=== PATIENT | male | born 1990 | race Caucasian/White ===

== ENCOUNTER → 2020-04-03 | Outpatient (REF) | payer SELFPAY | LOC: M LABSMTC 08:00 → EDSTATUS 12:50 | PROVIDERS: ATTEND Pediatrics | DX: Z20.828 Contact with and (suspected) exposure to other viral communicable diseases (principal) ==

== ENCOUNTER → 2020-04-24 | Outpatient (CLI) | payer SELFPAY | LOC: M LABSMTC 14:42 | PROVIDERS: ATTEND Pediatrics | DX: Z20.828 Contact with and (suspected) exposure to other viral communicable diseases (principal) ==

== ENCOUNTER 2020-04-30 14:29 | Emergency (ER) | payer SELFPAY ==
[~2020-04-30] VITALS: Ht 180.3 cm; Wt 126.4 kg
[2020-04-30] MEDS ORDERED: NS 1,000 ML IV ONE (15:00)
[2020-04-30 15:42] LABS: BASO # 0.1 10^3/uL (0.0-0.2); BASO % 0.8 % (0.0-1.0); EOS # 0.1 10^3/uL (0.0-0.5); EOS % 1.2 % (0.0-3.0); HEMATOCRIT 46.7 % (42.0-52.0); HEMOGLOBIN 15.7 g/dl (13.5-17.5); LYMPH # 1.8 10^3/uL (1.5-5.0); LYMPH % 27.3 % (24.0-44.0); MEAN CORPUSCULAR HEMOGLOBIN 29.3 pg (27.0-33.0); MEAN CORPUSCULAR HGB CONC 33.6 g/dl (32.0-36.5); MEAN CORPUSCULAR VOLUME 87.3 fl (80.0-96.0); MONO # 0.4 10^3/uL (0.0-0.8); MONO % 5.8 % (0.0-5.0); NEUTROPHILS # 4.3 10^3/uL (1.5-8.5); NEUTROPHILS % 64.4 % (36.0-66.0); PLATELET COUNT, AUTOMATED 301 10^3/uL (150-450); RED BLOOD COUNT 5.35 10^6/uL (4.30-6.10); WHITE BLOOD COUNT 6.6 10^3/uL (4.0-10.0)
[2020-04-30 16:25] LABS: ALBUMIN 4.3 GM/DL (3.2-5.2); ALT/SGPT 55 U/L (12-78); BILIRUBIN,DIRECT 0.1 MG/DL (0.0-0.2); BILIRUBIN,TOTAL 0.7 MG/DL (0.2-1.0); BLOOD UREA NITROGEN 15 MG/DL (7-18); CARBON DIOXIDE LEVEL 26 MEQ/L (21-32); CHLORIDE LEVEL 107 MEQ/L (98-107); CREATININE FOR GFR 0.83 MG/DL (0.70-1.30); GLOMERULAR FILTRATION RATE > 60.0 (>60); GLUCOSE, FASTING 83 MG/DL (70-100); LIPASE 79 U/L (73-393); POTASSIUM SERUM 4.2 MEQ/L (3.5-5.1); SODIUM LEVEL 138 MEQ/L (136-145); TOTAL PROTEIN 7.6 GM/DL (6.4-8.2)
[2020-04-30] MEDS ORDERED: ISOVUE-370 76% 100ML VIAL As Ordered ONE (16:27)
--- NOTE | 2020-04-30 17:01 | REP ---
INDICATION: abd pain with n/v/d. COMPARISON: None. TECHNIQUE: Abdomen and pelvis CT with IV contrast. FINDINGS: The visualized lung joshi are unremarkable. The hepatic parenchyma, gallbladder, pancreas and spleen are normal size and unremarkable. There is a small accessory spleen is an anatomic variant. The adrenals and kidneys are unremarkable. The abdominal aorta is unremarkable. There is no periaortic adenopathy or mass. There is no bowel distention or obstruction. There is wall edema in the terminal ileum is well as the descending colon and sigmoid colon.. This is nonspecific but could represent enteritis and colitis. There is no ascites. Pelvis: The appendix is unremarkable. There is no ascites or adenopathy. The bladder is unremarkable. IMPRESSION: Wall edema of the terminal ileum is well as the descending colon and sigmoid colon, nonspecific but could represent enteritis and colitis. <Electronically signed by Garth Caraballo > 04/30/20 [id number]
--- NOTE | 2020-04-30 17:23 | REP ---
INDICATION: SOB. COMPARISON: No comparison. TECHNIQUE: Two views.. FINDINGS: The lungs are well inflated and free of infiltrate. The pleural angles are sharp. The heart size is normal. Pulmonary vasculature is not increased. No significant bony abnormality is seen. IMPRESSION: Negative chest x-ray. <Electronically signed by Caden Shah > 04/30/20 1965
[2020-04-30 17:41] VITALS: BP 144/110
--- NOTE | 2020-04-30 19:18 | ED PDOC ---
Post-Departure Follow-Up pt needs fu for ct abd/p. find out pcp name and fax and have pt fu. if no pcp re [facility] there for fu Thomas Lerma MD Apr 30, 2020 19:18
== END 2020-04-30 17:46 | disposition home or self-care (01) ==
LOC: M ED 14:29
DX: R19.7 Diarrhea, unspecified (principal); Z91.02 Food additives allergy status; Z91.048 Other nonmedicinal substance allergy status
CPT/HCPCS: 71046; 74177; 80048; 80076; 81001; 83690; 85025; 96360; 99284; Q9967; U0002

== ENCOUNTER → 2020-05-01 | Outpatient (REF) | payer SELFPAY | LOC: M LAB REF 12:03 | PROVIDERS: ATTEND Nurse Practitioner Family | DX: R19.7 Diarrhea, unspecified (principal) ==

== ENCOUNTER → 2020-05-12 | Outpatient (CLI) | payer SELFPAY | LOC: M LABSMTC 14:47 | PROVIDERS: ATTEND Pediatrics | DX: Z20.828 Contact with and (suspected) exposure to other viral communicable diseases (principal) ==

== ENCOUNTER 2020-06-07 08:42 | Emergency (ER) | payer OTHER, SELFPAY ==
[~2020-06-07] VITALS: Ht 180.3 cm; Wt 125.9 kg
--- OUTSIDE RECORDS SUMMARY | 2020-06-07 08:50 | CCD ---
Author Author [facility] Organization [facility] Address Unknown Phone Unavailable Support Name Relationship Address Phone ELY WELLS Next Of Kin [address] [place] [address] SKH* Next Of Kin [address] [place] [address] [place] [address] NONE, PT PER Next Of Kin - -, - - - SOLEDAD DE LA TORRE Next Of Kin [address] [place] [address] CELL Re-disclosure Warning The records that you are about to access may contain information from federally-assisted alcohol or drug abuse programs. If such information is present, then the following federally mandated warning applies: This information has been disclosed to you from records protected by federal confidentiality rules (42 CFR part 2). The federal rules prohibit you from making any further disclosure of this information unless further disclosure is expressly permitted by the written consent of the person to whom it pertains or as otherwise permitted by 42 CFR part 2. A general authorization for the release of medical or other information is NOT sufficient for this purpose. The Federal rules restrict any use of the information to criminally investigate or prosecute any alcohol or drug abuse patient.The records that you are about to access may contain highly sensitive health information, the redisclosure of which is protected by Article 27-F of the [facility] Public Health law. If you continue you may have access to information: Regarding HIV / AIDS; Provided by facilities licensed or operated by the [facility] Office of Mental Health; or Provided by the [facility] Office for People With Developmental Disabilities. If such information is present, then the following [facility] mandated warning applies: This information has been disclosed to you from confidential records which are protected by state law. State law prohibits you from making any further disclosure of this information without the specific written consent of the person to whom it pertains, or as otherwise permitted by law. Any unauthorized further disclosure in violation of state law may result in a fine or group home sentence or both. A general authorization for the release of medical or other information is NOT sufficient authorization for further disc losure. Insurance Providers Payer name Policy type / Coverage type Policy ID Covered alliance party ID Covered alliance party's relationship to blackmon Policy [employer] Plan Information SELF PAY ONLY [id number] SELF PAY Results ID Date Data Source [id number] 06/04/2020 12:00:00 AM EST [facility] Name Value Range Interpretation Code Description Data Trupti rce(s) Supporting Document(s) SARS-CoV2 Rapid Antigen Negative [facility] This lab was ordered by [facility] and reported by [facility]. ID Date Data Source [id number] 06/01/2020 10:57:00 AM EST [facility] Name Value Range Interpretation Code Description Data Trupti rce(s) Supporting Document(s) SARS coronavirus 2 RNA Not Detected [facility] This lab was ordered by [facility] and reported by [facility]. ID Date Data Source [id number] 05/25/2020 11:30:00 AM EST [facility] Name Value Range Interpretation Code Description Data Trupti rce(s) Supporting Document(s) SARS coronavirus 2 RNA Not Detected [facility] [place] This lab was ordered by [facility] and reported by [facility]. ID Date Data Source [id number] 05/18/2020 02:36:00 PM EST [facility] Name Value Range Interpretation Code Description Data Trupti rce(s) Supporting Document(s) SARS coronavirus 2 RNA [facility] This lab was ordered by [facility] and reported by [facility]. ID Date Data Source [id number] 05/12/2020 01:45:00 PM EST [facility] Name Value Range Interpretation Code Description Data Trupti rce(s) Supporting Document(s) SARS coronavirus 2 RNA [facility] This lab was ordered by [facility] and reported by [facility]. ID Date Data Source [id number] 05/12/2020 12:00:00 AM EST [facility] Name Value Range Interpretation Code Description Data Trupti rce(s) Supporting Document(s) SARS-CoV2 Rapid Antigen [facility] This lab was ordered by [facility] and reported by [facility]. ID Date Data Source [id number] 04/30/2020 03:10:00 PM EST [facility] Name Value Range Interpretation Code Description Data Trupti rce(s) Supporting Document(s) SARS coronavirus 2 RNA [Presence] in Res piratory specimen by LISANDRA with probe detection [facility] This lab was ordered by [facility] a nd reported by [facility]. ID Date Data Source [id number] 04/24/2020 01:40:00 PM EST [facility] Name Value Range Interpretation Code Description Data Trupti rce(s) Supporting Document(s) SARS coronavirus 2 RNA [facility] This lab was ordered by [facility] and reported by [facility]. ID Date Data Source [id number] 04/20/2020 07:27:00 AM EST [facility] Name Value Range Interpretation Code Description Data Trupti rce(s) Supporting Document(s) SARS coronavirus 2 RNA [facility] This lab was ordered by [facility] and reported by [facility]. ID Date Data Source [id number] 04/15/2020 12:00:00 AM EST [facility] Name Value Range Interpretation Code Description Data Trupti rce(s) Supporting Document(s) SARS-CoV2 Rapid Antigen [facility] This lab was ordered by [facility] and reported by [facility]. ID Date Data Source [id number] 04/03/2020 09:35:00 AM EST [facility] Name Value Range Interpretation Code Description Data Trupti rce(s) Supporting Document(s) SARS coronavirus 2 RNA [facility] This lab was ordered by [facility] and reported by [facility]. ID Date Data Source [id number] 03/30/2020 03:00:00 PM EST [facility] Name Value Range Interpretation Code Description Data Trupti rce(s) Supporting Document(s) SARS coronavirus 2 RNA [facility] This lab was ordered by [facility] and reported by [facility]. ID Date Data Source [id number] 03/23/2020 02:00:00 PM EST [facility] Name Value Range Interpretation Code Description Data Trupti rce(s) Supporting Document(s) SARS coronavirus 2 RNA [facility] This lab was ordered by [facility] and reported by [facility]. ID Date Data Source [id number] 03/16/2020 10:30:00 AM EDT [facility] Name Value Range Interpretation Code Description Data Trupti rce(s) Supporting Document(s) SARS coronavirus 2 RNA [facility] This lab was ordered by [facility] and reported by [facility]. ID Date Data Source [id number] 03/09/2020 10:28:00 AM EDT [facility] Name Value Range Interpretation Code Description Data Trupti rce(s) Supporting Document(s) SARS coronavirus 2 RNA [facility] This lab was ordered by [facility] and reported by [facility]. ID Date Data Source [id number] 03/02/2020 08:00:00 AM EDT [facility] Name Value Range Interpretation Code Description Data Trupti rce(s) Supporting Document(s) SARS coronavirus 2 RNA [facility] This lab was ordered by [facility] and reported by [facility]. ID Date Data Source [id number] 02/24/2020 12:00:00 PM EDT [facility] Name Value Range Interpretation Code Description Data Trupti rce(s) Supporting Document(s) SARS coronavirus 2 RNA [facility] This lab was ordered by [facility] and reported by [facility]. ID Date Data Source [id number] 02/10/2020 02:00:00 PM EDT [facility] Name Value Range Interpretation Code Description Data Trupti rce(s) Supporting Document(s) SARS coronavirus 2 RNA [facility] This lab was ordered by [facility] and reported by [facility]. ID Date Data Source [id number] 02/03/2020 10:00:00 AM EDT [facility] Name Value Range Interpretation Code Description Data Trupti rce(s) Supporting Document(s) SARS coronavirus 2 RNA [facility] This lab was ordered by [facility] and reported by [facility]. ID Date Data Source [id number] 01/29/2020 12:00:00 PM EDT [facility] Name Value Range Interpretation Code Description Data Trupti rce(s) Supporting Document(s) SARS coronavirus 2 RNA [facility] This lab was ordered by [facility] and reported by [facility]. ID Date Data Source [id number] 01/20/2020 02:48:00 PM EDT [facility] Name Value Range Interpretation Code Description Data Trupti rce(s) Supporting Document(s) SARS coronavirus 2 RNA [facility] This lab was ordered by [facility] and reported by [facility]. ID Date Data Source [id number] 01/13/2020 09:10:00 AM EDT [facility] Name Value Range Interpretation Code Description Data Trupti rce(s) Supporting Document(s) SARS coronavirus 2 RNA [facility] This lab was ordered by [facility] and reported by [facility]. ID Date Data Source [id number] 12/09/2019 03:21:00 PM EDT [facility] Name Value Range Interpretation Code Description Data Trupti rce(s) Supporting Document(s) SARS coronavirus 2 RNA [facility] This lab was ordered by [facility] and reported by [facility]. ID Date Data Source [id number] 12/02/2019 11:18:00 AM EDT [facility] Name Value Range Interpretation Code Description Data Trupti rce(s) Supporting Document(s) SARS coronavirus 2 RNA [facility] This lab was ordered by [facility] and reported by [facility]. ID Date Data Source [id number] 11/25/2019 11:03:00 AM EDT [facility] Name Value Range Interpretation Code Description Data Trupti rce(s) Supporting Document(s) SARS coronavirus 2 RNA [facility] This lab was ordered by [facility] and reported by [facility]. ID Date Data Source [id number] 11/18/2019 09:06:00 AM EDT [facility] Name Value Range Interpretation Code Description Data Trupti rce(s) Supporting Document(s) SARS CORONAVIRUS 2 RNA [facility] This lab was ordered by [facility] and reported by [facility]. ID Date Data Source [id number] 11/11/2019 11:34:00 AM EDT [facility] Name Value Range Interpretation Code Description Data Trupti rce(s) Supporting Document(s) SARS CORONAVIRUS 2 RNA [facility] This lab was ordered by [facility] and reported by [facility]. ID Date Data Source [id number] 11/04/2019 06:00:00 AM EDT [facility] Name Value Range Interpretation Code Description Data Trupti rce(s) Supporting Document(s) SARS CORONAVIRUS 2 RNA [facility] This lab was ordered by [facility] and reported by [facility]. ID Date Data Source [id number] 10/28/2019 05:30:00 AM EDT [facility] Name Value Range Interpretation Code Description Data Trupti rce(s) Supporting Document(s) SARS CORONAVIRUS 2 RNA [facility] This lab was ordered by [facility] and reported by [facility]. ID Date Data Source [id number] 10/24/2019 05:30:00 AM EDT [facility] Name Value Range Interpretation Code Description Data Trupti rce(s) Supporting Document(s) SARS CORONAVIRUS 2 RNA [facility] This lab was ordered by [facility] and reported by [facility]. ID Date Data Source [id number] 10/21/2019 05:30:00 AM EDT [facility] Name Value Range Interpretation Code Description Data Trupti rce(s) Supporting Document(s) SARS CORONAVIRUS 2 RNA [facility] This lab was ordered by [facility] and reported by [facility]. ID Date Data Source [id number] 10/17/2019 08:00:00 AM EDT [facility] Name Value Range Interpretation Code Description Data Trupti rce(s) Supporting Document(s) SARS CORONAVIRUS 2 RNA [facility] This lab was ordered by [facility] and reported by [facility]. ID Date Data Source [id number] 10/15/2019 05:30:00 AM EDT [facility] Name Value Range Interpretation Code Description Data Trupti rce(s) Supporting Document(s) SARS CORONAVIRUS 2 RNA [facility] This lab was ordered by [facility] and reported by [facility]. ID Date Data Source [id number] 10/09/2019 10:55:00 AM EDT [facility] Name Value Range Interpretation Code Description Data Trupti rce(s) Supporting Document(s) SARS CORONAVIRUS 2 RNA [facility] This lab was ordered by [facility] and reported by [facility]. ID Date Data Source [id number] 09/30/2019 10:09:00 AM EDT [facility] Name Value Range Interpretation Code Description Data Trupti rce(s) Supporting Document(s) SARS CORONAVIRUS 2 RNA [facility] This lab was ordered by [facility] and reported by [facility]. Procedure
[2020-06-07] MEDS ORDERED: KETOROLAC 60MG 2ML VIAL IM ONE (09:15)
[2020-06-07] MEDS ORDERED: diazePAM 5MG TABLET PO ONE (09:15)
--- OUTSIDE RECORDS SUMMARY | 2020-06-07 09:24 | CCD ---
Author Author [facility] Organization [facility] Address Unknown Phone Unavailable Support Name Relationship Address Phone ELY WELLS Next Of Kin [address] [facility] [address] [place] [address] SK* Next Of Kin [address] [place] [address] [place] [address] NONE, PT PER Next Of Kin - -, - - - SOLEDAD DE LA TORRE Next Of Kin [address] [place] [address] CELL Re-disclosure Warning The records [...] is protected by Article 27-F of the [facility] Public Health law. If you continue you may have access to information: Regarding HIV / AIDS; Provided by facilities licensed or operated by the [facility] Office of Mental Health; or Provided by the [facility] Office for People With Developmental Disabilities. If such information is present, then the following [facility] mandated warning applies: This information has been [...] law may result in a fine or alf sentence or both. A general authorization for the release of medical or other information is NOT sufficient authorization for further disc losure. Insurance Providers Payer name Policy type / Coverage type Policy ID Covered alliance party ID Covered alliance party's relationship to blackmon Policy Blackmon Plan Information PMA MANAGEMENT [facility] [id number] SP [id number] SELF PAY ONLY [id number] SP [id number] SELF PAY Results ID Date Data Source [id number] 06/04/2020 12:00:00 AM EST [facility] Name Value Range Interpretation Code Description Data Trupti rce(s) Supporting Document(s) SARS-CoV2 Rapid Antigen Negative [facility] This lab was ordered by [facility] and reported by [facility]. ID Date Data Source [id number] 06/01/2020 10:57:00 AM EST [facility] Name Value Range Interpretation Code Description Data Trupti rce(s) Supporting Document(s) SARS coronavirus 2 RNA Not Detected [facility] This lab was ordered by [facility] and reported by [facility]. ID Date Data Source [id number] 05/25/2020 11:30:00 AM EST [facility] Name Value Range Interpretation Code Description Data Trupti rce(s) Supporting Document(s) SARS coronavirus 2 RNA Not Detected [facility] This lab was ordered by [facility] and reported by [facility]. ID Date Data Source [id number] 05/18/2020 02:36:00 PM EST [facility] Name Value Range Interpretation Code Description Data Trupti rce(s) Supporting Document(s) SARS coronavirus 2 RNA [facility] This lab was ordered by [facility] and reported by [facility]. ID Date Data Source [id number] 05/12/2020 01:45:00 PM EST [facility] Name Value Range Interpretation Code Description Data Trupti rce(s) Supporting Document(s) SARS coronavirus 2 RNA [facility] This lab was ordered by [facility] and reported by [facility]. ID Date Data Source [id number] 05/12/2020 12:00:00 AM EST [facility] Name Value Range Interpretation Code Description Data Trupti rce(s) Supporting Document(s) SARS-CoV2 Rapid Antigen [facility] This lab was ordered by [facility] and reported by [facility]. ID Date Data Source [id number] 04/30/2020 03:10:00 PM EST [facility] Name Value Range Interpretation Code Description Data Trupti rce(s) Supporting Document(s) SARS coronavirus 2 RNA [Presence] in Res piratory specimen by LISANDRA with probe detection [facility] This lab was ordered by [facility] a nd reported by [facility]. ID Date Data Source [id number] 04/24/2020 01:40:00 PM EST [facility] Name Value Range Interpretation Code Description Data Trupti rce(s) Supporting Document(s) SARS coronavirus 2 RNA [facility] This lab was ordered by [facility] and reported by [facility]. ID Date Data Source [id number] 04/20/2020 07:27:00 AM EST [facility] Name Value Range Interpretation Code Description Data Trupti rce(s) Supporting Document(s) SARS coronavirus 2 RNA [facility] This lab was ordered by [facility] and reported by [facility]. ID Date Data Source [id number] 04/15/2020 12:00:00 AM EST [facility] Name Value Range Interpretation Code Description Data Trupti rce(s) Supporting Document(s) SARS-CoV2 Rapid Antigen [facility] This lab was ordered by [facility] and reported by [facility]. ID Date Data Source [id number] 04/03/2020 09:35:00 AM EST [facility] Name Value Range Interpretation Code Description Data Trupti rce(s) Supporting Document(s) SARS coronavirus 2 RNA [facility] This lab was ordered by [facility] and reported by [facility]. ID Date Data Source [id number] 03/30/2020 03:00:00 PM EST [facility] Name Value Range Interpretation Code Description Data Rtupti rce(s) Supporting Document(s) SARS coronavirus 2 RNA [facility] This lab was ordered by [facility] and reported by [facility]. ID Date Data Source [id number] 03/23/2020 02:00:00 PM EST [facility] Name Value Range Interpretation Code Description Data Trupti rce(s) Supporting Document(s) SARS coronavirus 2 RNA [facility] This lab was ordered by [facility] and reported by [facility]. ID Date Data Source [id number] 03/16/2020 10:30:00 AM EDT [facility] Name Value Range Interpretation Code Description Data Trupti rce(s) Supporting Document(s) SARS coronavirus 2 RNA [facility] This lab was ordered by [facility] and reported by [facility]. ID Date Data Source [id number] 03/09/2020 10:28:00 AM EDT [facility] Name Value Range Interpretation Code Description Data Trupti rce(s) Supporting Document(s) SARS coronavirus 2 RNA [facility] This lab was ordered by [facility] and reported by [facility]. ID Date Data Source [id number] 03/02/2020 08:00:00 AM EDT [facility] Name Value Range Interpretation Code Description Data Trupti rce(s) Supporting Document(s) SARS coronavirus 2 RNA [facility] This lab was ordered by [facility] and reported by [facility]. ID Date Data Source [id number] 02/24/2020 12:00:00 PM EDT [facility] Name Value Range Interpretation Code Description Data Trupti rce(s) Supporting Document(s) SARS coronavirus 2 RNA [facility] This lab was ordered by [facility] and reported by [facility]. ID Date Data Source [id number] 02/10/2020 02:00:00 PM EDT [facility] Name Value Range Interpretation Code Description Data Trupti rce(s) Supporting Document(s) SARS coronavirus 2 RNA [facility] This lab was ordered by [facility] and reported by [facility]. ID Date Data Source [id number] 02/03/2020 10:00:00 AM EDT [facility] Name Value Range Interpretation Code Description Data Trupti rce(s) Supporting Document(s) SARS coronavirus 2 RNA [facility] This lab was ordered by [facility] and reported by [facility]. ID Date Data Source [id number] 01/29/2020 12:00:00 PM EDT [facility] Name Value Range Interpretation Code Description Data Trupti rce(s) Supporting Document(s) SARS coronavirus 2 RNA [facility] This lab was ordered by [facility] and reported by [facility]. ID Date Data Source [id number] 01/20/2020 02:48:00 PM EDT [facility] Name Value Range Interpretation Code Description Data Trupti rce(s) Supporting Document(s) SARS coronavirus 2 RNA [facility] This lab was ordered by [facility] and reported by [facility]. ID Date Data Source [id number] 01/13/2020 09:10:00 AM EDT [facility] Name Value Range Interpretation Code Description Data Trupti rce(s) Supporting Document(s) SARS coronavirus 2 RNA [facility] This lab was ordered by [facility] and reported by [facility]. ID Date Data Source [id number] 12/09/2019 03:21:00 PM EDT [facility] Name Value Range Interpretation Code Description Data Trupti rce(s) Supporting Document(s) SARS coronavirus 2 RNA [facility] This lab was ordered by [facility] and reported by [facility]. ID Date Data Source [id number] 12/02/2019 11:18:00 AM EDT [facility] Name Value Range Interpretation Code Description Data Trupti rce(s) Supporting Document(s) SARS coronavirus 2 RNA [facility] This lab was ordered by [facility] and reported by [facility]. ID Date Data Source [id number] 11/25/2019 11:03:00 AM EDT [facility] Name Value Range Interpretation Code Description Data Trupti rce(s) Supporting Document(s) SARS coronavirus 2 RNA [facility] This lab was ordered by [facility] and reported by [facility]. ID Date Data Source [id number] 11/18/2019 09:06:00 AM EDT [facility] Name Value Range Interpretation Code Description Data Trupti rce(s) Supporting Document(s) SARS CORONAVIRUS 2 RNA [facility] This lab was ordered by [facility] and reported by [facility]. ID Date Data Source [id number] 11/11/2019 11:34:00 AM EDT [facility] Name Value Range Interpretation Code Description Data Rtupti rce(s) Supporting Document(s) SARS CORONAVIRUS 2 RNA [facility] This lab was ordered by [facility] and reported by [facility]. ID Date Data Source [id number] 11/04/2019 06:00:00 AM EDT [facility] Name Value Range Interpretation Code Description Data Trupti rce(s) Supporting Document(s) SARS CORONAVIRUS 2 RNA [facility] This lab was ordered by [facility] and reported by [facility]. ID Date Data Source [id number] 10/28/2019 05:30:00 AM EDT [facility] Name Value Range Interpretation Code Description Data Trupti rce(s) Supporting Document(s) SARS CORONAVIRUS 2 RNA [facility] This lab was ordered by [facility] and reported by [facility]. ID Date Data Source [id number] 10/24/2019 05:30:00 AM EDT [facility] Name Value Range Interpretation Code Description Data Trupti rce(s) Supporting Document(s) SARS CORONAVIRUS 2 RNA [facility] This lab was ordered by [facility] and reported by [facility]. ID Date Data Source [id number] 10/21/2019 05:30:00 AM EDT [facility] Name Value Range Interpretation Code Description Data Trupti rce(s) Supporting Document(s) SARS CORONAVIRUS 2 RNA [facility] This lab was ordered by [facility] and reported by [facility]. ID Date Data Source [id number] 10/17/2019 08:00:00 AM EDT [facility] Name Value Range Interpretation Code Description Data Trupti rce(s) Supporting Document(s) SARS CORONAVIRUS 2 RNA [facility] This lab was ordered by [facility] and reported by [facility]. ID Date Data Source [id number] 10/15/2019 05:30:00 AM EDT [facility] Name Value Range Interpretation Code Description Data Trupti rce(s) Supporting Document(s) SARS CORONAVIRUS 2 RNA [facility] This lab was ordered by [facility] and reported by [facility]. ID Date Data Source [id number] 10/09/2019 10:55:00 AM EDT [facility] Name Value Range Interpretation Code Description Data Trupti rce(s) Supporting Document(s) SARS CORONAVIRUS 2 RNA [facility] This lab was ordered by [facility] and reported by [facility]. ID Date Data Source [id number] 09/30/2019 10:09:00 AM EDT [facility] Name Value Range Interpretation Code Description Data Trupti rce(s) Supporting Document(s) SARS CORONAVIRUS 2 RNA [facility] This lab was ordered by [facility] and reported by [facility]. Procedure
[2020-06-07] MEDS ORDERED: IBUP-1022 PO (09:48)
[2020-06-07] MEDS ORDERED: VALI5TAB PO (09:48)
[2020-06-07] MEDS ORDERED: CYCL-707 PO (09:51)
[2020-06-07 09:56] VITALS: BP 142/94
== END 2020-06-07 10:00 | disposition home or self-care (01) ==
LOC: M ED 08:42
DX: S39.012A Strain of muscle, fascia and tendon of lower back, initial encounter (principal); X50.0XXA Overexertion from strenuous movement or load, initial encounter; Y92.9 Unspecified place or not applicable; Y93.9 Activity, unspecified; Y99.0 Civilian activity done for income or pay; Z88.8 Allergy status to other drugs, medicaments and biological substances
CPT/HCPCS: 96372; 99283; J1885

== ENCOUNTER 2020-07-02 14:42 | Emergency (ER) | payer OTHER ==
[~2020-07-02] VITALS: Ht 180.3 cm; Wt 123.2 kg
[~2020-07-02 14:42] MED LIST: CYCL-707 PO; IBUP-1022 PO; VALI5TAB PO
--- OUTSIDE RECORDS SUMMARY | 2020-07-02 15:06 | CCD ---
Author Author [facility] Organization [facility] Address Unknown Phone Unavailable Support Name Relationship Address Phone ELY WELLS Next Of Kin [id number] [place] [address] SK* Next Of Kin [address] [place] [address] [place] [address] NONE, PT PER Next Of Kin - -, - - - [place] Next Of Kin [address] [place] [address] CELL Re-disclosure Warning The records [...] is protected by Article 27-F of the [facility] Public Health law. If you continue you may have access to information: Regarding HIV / AIDS; Provided by facilities licensed or operated by the [facility] Office of Mental Health; or Provided by the [facility] Office for People With Developmental Disabilities. If such information is present, then the following [facility] mandated warning applies: This information has [...] law may result in a fine or long term sentence or both. A general authorization for the release of medical or other information is NOT sufficient authorization for further disc losure. Medications Medication Brand Name Start Date Product Form Dose Route Admi nistrative Instructions Pharmacy Instructions Status Indications Reaction Description Data Source(s) Cyclobenzaprine hydrochloride 10 MG Oral Tablet CYCLOBENZAPR INE HCL 06/07/2020 12:00:00 AM EST tablet 30 TAKE ONE TABLET BY MOUTH THREE TIMES A DAY FOR MUSCLE SPASMS TAKE ONE TABLET BY MOUTH THREE TIMES A DAY FOR MUSCLE SPASMS SOLD: 06/08/2020 [facility] 600 mg 06/07/2020 12:00:00 AM EST tablet 30 TAKE ONE TABLET BY MOUTH EVERY 6 HOURS NEEDED FOR PAIN TAKE ONE TABLET BY MOUTH EVERY 6 HOURS A S NEEDED FOR PAIN SOLD: 06/08/2020 [facility] Insurance Providers Payer name Policy type / Coverage type Policy ID Covered alliance party ID Covered alliance party's relationship to linder Policy Linder Plan Information PMA MANAGEMENT [facility] [id number] SP [id number] SELF PAY SELF PAY ONLY [id number] SP [id number] Results ID Date Data Source [id number] 06/25/2020 12:00:00 AM EST [facility] Name Value Range Interpretation Code Description Data Trupti rce(s) Supporting Document(s) SARS coronavirus 2 Ag [facility] This lab was ordered by [facility] and reported by [facility]. ID Date Data Source [id number] 06/22/2020 02:30:00 PM EST [facility] Name Value Range Interpretation Code Description Data Trupti rce(s) Supporting Document(s) SARS coronavirus 2 RNA Not Detected [facility] This lab was ordered by [facility] and reported by [facility]. ID Date Data Source [id number] 06/18/2020 12:00:00 AM EST [facility] Name Value Range Interpretation Code Description Data Trupti rce(s) Supporting Document(s) SARS coronavirus 2 Ag NEGATIVE [facility] This lab was ordered by [facility] and reported by [facility]. ID Date Data Source [id number] 06/15/2020 08:00:00 AM EST [facility] Name Value Range Interpretation Code Description Data Trupti rce(s) Supporting Document(s) SARS coronavirus 2 RNA Not Detected [facility] [place] This lab was ordered by [facility] and reported by [facility]. ID Date Data Source [id number] 06/11/2020 12:00:00 AM EST [facility] Name Value Range Interpretation Code Description Data Trupti rce(s) Supporting Document(s) SARS coronavirus 2 Ag Negative [facility] This lab was ordered by [facility] and reported by [facility]. ID Date Data Source [id number] 06/04/2020 12:00:00 AM EST [facility] Name Value Range Interpretation Code Description Data Trupti rce(s) Supporting Document(s) SARS-CoV2 Rapid Antigen Negative [facility] This lab was ordered by [facility] and reported by [facility]. ID Date Data Source [id number] 06/01/2020 10:57:00 AM EST [facility] Name Value Range Interpretation Code Description Data Trupti rce(s) Supporting Document(s) SARS coronavirus 2 RNA Not Detected [facility] [place] This lab was ordered by [facility] and reported by [facility]. ID Date Data Source [id number] 05/25/2020 11:30:00 AM EST [facility] Name Value Range Interpretation Code Description Data Trupti rce(s) Supporting Document(s) SARS coronavirus 2 RNA Not Detected [facility] This lab was ordered by [facility] and reported by [facility]. ID Date Data Source [id number] 05/18/2020 02:36:00 PM EST [facility] Name Value Range Interpretation Code Description Data Trupti rce(s) Supporting Document(s) SARS coronavirus 2 RNA [facility] This lab was ordered by [facility] and reported by [facility]. ID Date Data Source [id number] 05/12/2020 01:45:00 PM EST [facility] Name Value Range Interpretation Code Description Data Trupti rce(s) Supporting Document(s) SARS coronavirus 2 RNA [facility] This lab was ordered by [facility] and reported by [facility]. ID Date Data Source [id number] 05/12/2020 12:00:00 AM EST [facility] Name Value Range Interpretation Code Description Data Trupti rce(s) Supporting Document(s) SARS-CoV2 Rapid Antigen [facility] This lab was ordered by [facility] and reported by [facility]. ID Date Data Source [id number] 04/30/2020 03:10:00 PM EST [facility] Name Value Range Interpretation Code Description Data Trupti rce(s) Supporting Document(s) SARS coronavirus 2 RNA [Presence] in Res piratory specimen by LISANDRA with probe detection [facility] This lab was ordered by [facility] a nd reported by [facility]. ID Date Data Source [id number] 04/24/2020 01:40:00 PM EST [facility] Name Value Range Interpretation Code Description Data Trupti rce(s) Supporting Document(s) SARS coronavirus 2 RNA [facility] This lab was ordered by [facility] and reported by [facility]. ID Date Data Source [id number] 04/20/2020 07:27:00 AM EST [facility] Name Value Range Interpretation Code Description Data Trupti rce(s) Supporting Document(s) SARS coronavirus 2 RNA [facility] This lab was ordered by [facility] and reported by [facility]. ID Date Data Source [id number] 04/15/2020 12:00:00 AM EST [facility] Name Value Range Interpretation Code Description Data Trupti rce(s) Supporting Document(s) SARS-CoV2 Rapid Antigen [facility] This lab was ordered by [facility] and reported by [facility]. ID Date Data Source [id number] 04/03/2020 09:35:00 AM EST [facility] Name Value Range Interpretation Code Description Data Trupti rce(s) Supporting Document(s) SARS coronavirus 2 RNA [facility] This lab was ordered by [facility] and reported by [facility]. ID Date Data Source [id number] 03/30/2020 03:00:00 PM EST [facility] Name Value Range Interpretation Code Description Data Trupti rce(s) Supporting Document(s) SARS coronavirus 2 RNA [facility] This lab was ordered by [facility] and reported by [facility]. ID Date Data Source [id number] 03/23/2020 02:00:00 PM EST [facility] Name Value Range Interpretation Code Description Data Trupti rce(s) Supporting Document(s) SARS coronavirus 2 RNA [facility] This lab was ordered by [facility] and reported by [facility]. ID Date Data Source [id number] 03/16/2020 10:30:00 AM EDT [facility] Name Value Range Interpretation Code Description Data Trupti rce(s) Supporting Document(s) SARS coronavirus 2 RNA [facility] This lab was ordered by [facility] and reported by [facility]. ID Date Data Source [id number] 03/09/2020 10:28:00 AM EDT [facility] Name Value Range Interpretation Code Description Data Trupti rce(s) Supporting Document(s) SARS coronavirus 2 RNA [facility] This lab was ordered by [facility] and reported by [facility]. ID Date Data Source [id number] 03/02/2020 08:00:00 AM EDT [facility] Name Value Range Interpretation Code Description Data Trupti rce(s) Supporting Document(s) SARS coronavirus 2 RNA [facility] This lab was ordered by [facility] and reported by [facility]. ID Date Data Source [id number] 02/24/2020 12:00:00 PM EDT [facility] Name Value Range Interpretation Code Description Data Trupti rce(s) Supporting Document(s) SARS coronavirus 2 RNA [facility] This lab was ordered by [facility] and reported by [facility]. ID Date Data Source [id number] 02/10/2020 02:00:00 PM EDT [facility] Name Value Range Interpretation Code Description Data Trupti rce(s) Supporting Document(s) SARS coronavirus 2 RNA [facility] This lab was ordered by [facility] and reported by [facility]. ID Date Data Source [id number] 02/03/2020 10:00:00 AM EDT [facility] Name Value Range Interpretation Code Description Data Trupti rce(s) Supporting Document(s) SARS coronavirus 2 RNA [facility] This lab was ordered by [facility] and reported by [facility]. ID Date Data Source [id number] 01/29/2020 12:00:00 PM EDT [facility] Name Value Range Interpretation Code Description Data Trupti rce(s) Supporting Document(s) SARS coronavirus 2 RNA [facility] This lab was ordered by [facility] and reported by [facility]. ID Date Data Source [id number] 01/20/2020 02:48:00 PM EDT [facility] Name Value Range Interpretation Code Description Data Trupti rce(s) Supporting Document(s) SARS coronavirus 2 RNA [facility] This lab was ordered by [facility] and reported by [facility]. ID Date Data Source [id number] 01/13/2020 09:10:00 AM EDT [facility] Name Value Range Interpretation Code Description Data Trupti rce(s) Supporting Document(s) SARS coronavirus 2 RNA [facility] This lab was ordered by [facility] and reported by [facility]. ID Date Data Source [id number] 12/09/2019 03:21:00 PM EDT [facility] Name Value Range Interpretation Code Description Data Trupti rce(s) Supporting Document(s) SARS coronavirus 2 RNA [facility] This lab was ordered by [facility] and reported by [facility]. ID Date Data Source [id number] 12/02/2019 11:18:00 AM EDT [facility] Name Value Range Interpretation Code Description Data Trupti rce(s) Supporting Document(s) SARS coronavirus 2 RNA [facility] This lab was ordered by [facility] and reported by [facility]. ID Date Data Source [id number] 11/25/2019 11:03:00 AM EDT [facility] Name Value Range Interpretation Code Description Data Trupti rce(s) Supporting Document(s) SARS coronavirus 2 RNA [facility] This lab was ordered by [facility] and reported by [facility]. ID Date Data Source [id number] 11/18/2019 09:06:00 AM EDT [facility] Name Value Range Interpretation Code Description Data Trupti rce(s) Supporting Document(s) SARS CORONAVIRUS 2 RNA [facility] This lab was ordered by [facility] and reported by [facility]. ID Date Data Source [id number] 11/11/2019 11:34:00 AM EDT [facility] Name Value Range Interpretation Code Description Data Trupti rce(s) Supporting Document(s) SARS CORONAVIRUS 2 RNA [facility] This lab was ordered by [facility] and reported by [facility]. ID Date Data Source [id number] 11/04/2019 06:00:00 AM EDT [facility] Name Value Range Interpretation Code Description Data Trupti rce(s) Supporting Document(s) SARS CORONAVIRUS 2 RNA [facility] This lab was ordered by [facility] and reported by [facility]. ID Date Data Source [id number] 10/28/2019 05:30:00 AM EDT [facility] Name Value Range Interpretation Code Description Data Trupti rce(s) Supporting Document(s) SARS CORONAVIRUS 2 RNA [facility] This lab was ordered by [facility] and reported by [facility]. ID Date Data Source [id number] 10/24/2019 05:30:00 AM EDT [facility] Name Value Range Interpretation Code Description Data Trupti rce(s) Supporting Document(s) SARS CORONAVIRUS 2 RNA [facility] This lab was ordered by [facility] and reported by [facility]. ID Date Data Source [id number] 10/21/2019 05:30:00 AM EDT [facility] Name Value Range Interpretation Code Description Data Trupti rce(s) Supporting Document(s) SARS CORONAVIRUS 2 RNA [facility] This lab was ordered by [facility] and reported by [facility]. ID Date Data Source [id number] 10/17/2019 08:00:00 AM EDT [facility] Name Value Range Interpretation Code Description Data Trupti rce(s) Supporting Document(s) SARS CORONAVIRUS 2 RNA [facility] This lab was ordered by [facility] and reported by [facility]. ID Date Data Source [id number] 10/15/2019 05:30:00 AM EDT [facility] Name Value Range Interpretation Code Description Data Trupti rce(s) Supporting Document(s) SARS CORONAVIRUS 2 RNA [facility] This lab was ordered by [facility] and reported by [facility]. ID Date Data Source [id number] 10/09/2019 10:55:00 AM EDT [facility] Name Value Range Interpretation Code Description Data Trupti rce(s) Supporting Document(s) SARS CORONAVIRUS 2 RNA [facility] This lab was ordered by [facility] and reported by [facility]. ID Date Data Source [id number] 09/30/2019 10:09:00 AM EDT [facility] Name Value Range Interpretation Code Description Data Trupti rce(s) Supporting Document(s) SARS CORONAVIRUS 2 RNA [facility] This lab was ordered by [facility] and reported by [facility]. Procedure
--- NOTE | 2020-07-02 15:36 | REP ---
INDICATION: injured while lifting a resident, felt mult pops. COMPARISON: None. TECHNIQUE: Five views lumbosacral spine. FINDINGS: There is no compression fracture. There is no spondylolysis or spondylolisthesis. There is normal lumbar lordosis. There is mild disc space narrowing and subchondral sclerosis at L4-5 and L5-S1. The posterior elements are intact. IMPRESSION: Mild degenerative changes. No fracture or dislocation. <Electronically signed by Garth Liriano > 07/02/20 [id number]
[2020-07-02] MEDS ORDERED: ACETAMINOPHEN 500 MG TAB PO ONE (15:45)
[2020-07-02 15:49] VITALS: BP 144/96
== END 2020-07-02 15:53 | disposition home or self-care (01) ==
LOC: M ED 14:42
DX: M54.5 Low back pain (principal); X50.0XXA Overexertion from strenuous movement or load, initial encounter; Y92.129 Unspecified place in nursing home as the place of occurrence of the external cause; Y93.F2 Activity, caregiving, lifting; Y99.0 Civilian activity done for income or pay; M48.07 Spinal stenosis, lumbosacral region; F90.9 Attention-deficit hyperactivity disorder, unspecified type; J45.909 Unspecified asthma, uncomplicated; Z88.8 Allergy status to other drugs, medicaments and biological substances

== ENCOUNTER → 2020-12-08 | Outpatient (CLI) | payer OTHER ==
--- NOTE | 2020-12-08 16:02 | REP ---
INDICATION: STRAIN MUSCLE LBP? HERNIATION. COMPARISON: Radiographs 07/02/2020. TECHNIQUE: Multiple sequences obtained in the sagittal and axial planes. FINDINGS: There is no compression fracture. There is normal alignment and lumbar lordosis. Hemangioma is noted in the L5 vertebral body. At L4-5 there is mild diffuse disc bulging and mild hypertrophic change at the facet joints. There is loss of water signal and disc degeneration at L5-S1, with mild disc space narrowing. There is mild subchondral marrow edema at the inferior plate endplate of L5. There is mild degenerative signal in the L4-5 disc, with slight disc space narrowing at that level. The conus is unremarkable. At L1-2 through L3-4 there is no significant disc bulging or herniation. There is no spinal stenosis or neural foraminal narrowing. At L4-5 there is mild diffuse disc bulging slightly effacing the anterior thecal sac. There are mild hypertrophic changes at the posterior facet joints. There is no significant canal stenosis. There is very mild bilateral foraminal narrowing. At L5-S1 there is mild diffuse disc bulging, slightly effacing the thecal sac, without central canal stenosis. There are mild hypertrophic changes at the posterior facet joints. There is not significant foraminal narrowing. IMPRESSION: Degenerative changes and mild disc bulging at L4-5 and L5-S1 as discussed above. <Electronically signed by Garth Liriano > 12/08/20 [id number]
== END ==
LOC: M PLAIMG 12:31
PROVIDERS: ATTEND Physician Assistant
DX: M54.5 Low back pain (principal)

== ENCOUNTER → 2021-03-11 | Outpatient (REF) | LOC: M EMP 10:29 | PROVIDERS: ATTEND Family Medicine | DX: Z11.52 Encounter for screening for COVID-19 (principal) ==

== ENCOUNTER 2021-03-15 09:45 | Emergency (ER) | payer OTHER ==
[~2021-03-15] VITALS: Ht 180.3 cm; Wt 135.9 kg
--- OUTSIDE RECORDS SUMMARY | 2021-03-15 09:52 | CCD | Continuity of Care Document ---
Author Author Darius AGUILAR PA Organization Unknown Address [address] [place] [address] Phone [phone] Problems Description No Information Available Social History Type Date Description Comments Sex Unknown Tobacco Use Start: Unknown End: Unknown Patient is a former smoker Allergies, Adverse Reactions, Alerts Description No Known Drug Allergies Medications Active Medications SIG Qnty Indications Ordering Provide r Date Pfizer-BiontKeldelice Covid-19 Vaccine 30mcg/0.3ML Suspension Unknown Cyclobenzaprine HCL 10mg Tablets Althea Dahl, SUCCESSFACTORS CONSULTANT Ibuprofen 600mg Tablets Althea Dahl, SUCCESSFACTORS CONSULTANT Immunizations Description No Information Available Vital Signs Date Vital Result Comment 07/13/2020 1:10pm Body Temperature 96.4 F Height 71.5 inches 5'11.50" Weight 276.00 lb BMI (Body Mass Index) 38.0 kg/m2 Results Description No Information Available Procedures Date Code Description Status 01/28/2021 28438 Office/Outpatient Established Lo w MDM 20-29 Min Completed 12/23/2020 49774 Office/Outpatient Established Lo w MDM 20-29 Min Completed 12/22/2020 58601 Therapeutic Procedure, Each 15 M inutes Completed 12/22/2020 09940 Hot Or Cold Packs Completed 12/22/2020 81980 Manual Therapy Each 15 Minutes C ompleted 12/17/2020 47497 Re-Eval Of PT Establ ished Plan Of Care 20Mins Face To Face PT/Fam Completed 12/17/2020 32898 Manual Therapy Each 15 Minutes C ompleted 12/17/2020 90395 Therapeutic Procedure, Each 15 M inutes Completed 12/17/2020 68115 Hot Or Cold Packs Completed 12/15/2020 63285 Therapeutic Procedure, Each 15 M inutes Completed 12/15/2020 86896 Hot Or Cold Packs Completed 12/15/2020 03042 Manual Therapy Each 15 Minutes C ompleted 12/11/2020 01037 Manual Therapy Each 15 Minutes C ompleted 12/11/2020 80832 Therapeutic Procedure, Each 15 M inutes Completed 12/11/2020 70688 Hot Or Cold Packs Completed 12/09/2020 32377 Manual Therapy Each 15 Minutes C ompleted 12/09/2020 65576 Therapeutic Procedure, Each 15 M inutes Completed 12/09/2020 54883 Hot Or Cold Packs Completed 12/04/2020 42270 Manual Therapy Each 15 Minutes C ompleted 12/04/2020 56393 Therapeutic Procedure, Each 15 M inutes Completed 12/02/2020 68212 Manual Therapy Each 15 Minutes C ompleted 12/02/2020 65130 Therapeutic Procedure, Each 15 M inutes Completed 11/27/2020 05815 Manual Therapy Each 15 Minutes C ompleted 11/27/2020 49934 Therapeutic Procedure, Each 15 M inutes Completed 11/27/2020 44115 Hot Or Cold Packs Completed 11/25/2020 07012 Manual Therapy Each 15 Minutes C ompleted 11/25/2020 82394 Therapeutic Procedure, Each 15 M inutes Completed 11/17/2020 04420 Re-Eval Of PT Establ ished Plan Of Care 20Mins Face To Face PT/Fam Completed 11/04/2020 27743 Office/Outpatient Established Lo w MDM 20-29 Min Completed 10/08/2020 61544 Manual Therapy Each 15 Minutes C ompleted 10/08/2020 71404 Therapeutic Procedure, Each 15 M inutes Completed 10/01/2020 58760 Manual Therapy Each 15 Minutes C ompleted 10/01/2020 72284 Therapeutic Procedure, Each 15 M inutes Completed 10/01/2020 41335 Hot Or Cold Packs Completed 09/23/2020 47423 Hot Or Cold Packs Completed 09/23/2020 88253 Electrical Stimulati on Manual, Each 15 Min, Constant Attendance Completed 09/23/2020 02467 Manual Therapy Each 15 Minutes C ompleted 09/23/2020 89610 Therapeutic Procedure, Each 15 M inutes Completed 09/21/2020 23917 Office/Outpatient Established Mo d MDM 30-39 Min Completed 09/21/2020 05731 Manual Therapy Each 15 Minutes C ompleted 09/21/2020 14604 Therapeutic Procedure, Each 15 M inutes Completed 09/21/2020 32357 Electrical Stimulati on Manual, Each 15 Min, Constant Attendance Completed 09/21/2020 08888 Hot Or Cold Packs Completed 09/17/2020 55383 Therapeutic Procedure, Each 15 M inutes Completed 09/17/2020 91627 Hot Or Cold Packs Completed 09/17/2020 68696 Electrical Stimulati on Manual, Each 15 Min, Constant Attendance Completed 09/17/2020 21476 Manual Therapy Each 15 Minutes C ompleted 09/17/2020 70988 Re-Eval Of PT Establ ished Plan Of Care 20Mins Face To Face PT/Fam Completed 09/15/2020 77877 Manual Therapy Each 15 Minutes C ompleted 09/15/2020 24878 Therapeutic Procedure, Each 15 M inutes Completed 09/15/2020 90021 Electrical Stimulati on Manual, Each 15 Min, Constant Attendance Completed 09/15/2020 18938 Hot Or Cold Packs Completed 09/11/2020 07334 Hot Or Cold Packs Completed 09/11/2020 07764 Electrical Stimulati on Manual, Each 15 Min, Constant Attendance Completed 09/11/2020 40739 Manual Therapy Each 15 Minutes C ompleted 09/11/2020 44585 Therapeutic Procedure, Each 15 M inutes Completed 09/09/2020 92030 Manual Therapy Each 15 Minutes C ompleted 09/09/2020 48245 Therapeutic Procedure, Each 15 M inutes Completed 09/09/2020 45663 Electrical Stimulati on Manual, Each 15 Min, Constant Attendance Completed 09/09/2020 84778 Hot Or Cold Packs Completed 08/24/2020 81497 Therapeutic Procedure, Each 15 M inutes Completed 08/24/2020 34202 Therapeutic Procedure, Each 15 M inutes Completed 08/24/2020 70678 Electrical Stimulati on Manual, Each 15 Min, Constant Attendance Completed 08/24/2020 71672 Hot Or Cold Packs Completed 08/19/2020 20471 Therapeutic Procedure, Each 15 M inutes Completed 08/19/2020 55729 Hot Or Cold Packs Completed 08/19/2020 47630 Electrical Stimulati on Manual, Each 15 Min, Constant Attendance Completed 08/14/2020 50842 Therapeutic Procedure, Each 15 M inutes Completed 08/14/2020 60612 Electrical Stimulati on Manual, Each 15 Min, Constant Attendance Completed 08/14/2020 23452 Hot Or Cold Packs Completed 08/10/2020 88738 Office/Outpatient Established Lo w MDM 20-29 Min Completed 08/07/2020 02445 Therapeutic Procedure, Each 15 M inutes Completed 08/07/2020 92075 Electrical Stimulati on Manual, Each 15 Min, Constant Attendance Completed 08/07/2020 28578 Hot Or Cold Packs Completed 07/29/2020 27544 Physical Therapy Eval - Low Comp lexity Completed Medical Devices Description No Information Available Encounters Type Date Location Provider Dx Diagnosis Office Visit [place] S39.012D Strain of muscle, fascia and tendon of lower back, subs M51.26 Other intervertebral disc di splacement, lumbar region M51.27 Other intervertebral disc di splacement, lumbosacral region Office Visit 12/23/2020 4[place] S39.012D Strain of muscle, fascia and tendon of lower back, subs M51.26 Other intervertebral disc di splacement, lumbar region M51.27 Other intervertebral disc di splacement, lumbosacral region Office Visit 11/04/2020 4:30p [place] MARISABEL Cano S39.012D Strain of muscle, fascia and tendon of lower back, subs Office Visit 09/21/2020 1:00p Brent Malave MD S3 9.012D Strain of muscle, fascia and tendon of lower back, subs Office Visit 08/10/2020 1:00p Brent Malave MD S3 9.012D Strain of muscle, fascia and tendon of lower back, subs Assessments Date Code Description Provider 01/28/2021 S39.012D Strain of muscle, fa scia and tendon of lower back, subsequent encounter Jad I. 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 12/17/2020 S39.012D Strain of muscle, fa scia and tendon of lower back, subsequent encounter Natty WestAdis Jonathanmarisabel, RUST 12/15/2020 S39.012D Strain of muscle, fa scia and tendon of lower back, subsequent encounter Natty M. Jonathanmarisabel, RUST 12/11/2020 S39.012D Strain of muscle, fa scia and tendon of lower back, subsequent encounter Natty M. Jonathanmarisabel, RUST 12/09/2020 S39.012D Strain of muscle, fa scia and tendon of lower back, subsequent encounter Hiram Mooney P.T. 12/04/2020 S39.012D Strain of muscle, fa scia and tendon of lower back, subsequent encounter Hiram Mooney P.T. 12/02/2020 S39.012D Strain of muscle, fa scia and tendon of lower back, subsequent encounter Natty M. Jonathanmarisabel, RUST 11/27/2020 S39.012D Strain of muscle, fa scia and tendon of lower back, subsequent encounter Natty M. Jonathanpa, [place] 11/25/2020 S39.012D Strain of muscle, fa scia and tendon of lower back, subsequent encounter Natty M. Jonathanmarisabel, RUST 11/17/2020 S39.012D Strain of muscle, fa scia and tendon of lower back, subsequent encounter Natty M. Jonathanpa, [place] 11/04/2020 S39.012D Strain of muscle, fa scia and tendon of lower back, subsequent encounter MARISABEL Cano 10/08/2020 S39.012D Strain of muscle, fa scia and tendon of lower back, subsequent encounter Natyt M. Vespa, [place] 10/01/2020 S39.012D Strain of muscle, fa scia and tendon of lower back, subsequent encounter Natty M. Vespa, [place] 09/23/2020 S39.012D Strain of muscle, fa scia and tendon of lower back, subsequent encounter Natty M. Vespa, R[place] 09/21/2020 S39.012D Strain of muscle, fa scia and tendon of lower back, subsequent encounter Natty M. Vespa, R[place] 09/21/2020 S39.012D Strain of muscle, fa scia and tendon of lower back, subsequent encounter Channing Malave MD 09/17/2020 S39.012D Strain of muscle, fa scia and tendon of lower back, subsequent encounter Natty M. Vespa, [place] 09/15/2020 S39.012D Strain of muscle, fa scia and tendon of lower back, subsequent encounter Natty M. Vespa, RUST 09/11/2020 S39.012D Strain of muscle, fa scia and tendon of lower back, subsequent encounter Natty M. Vespa, RUST 09/09/2020 S39.012D Strain of muscle, fa scia and tendon of lower back, subsequent encounter Natty M. Vespa, [place] 08/24/2020 S39.012D Strain of muscle, fa scia and tendon of lower back, subsequent encounter Hiram Mooney P.T. 08/19/2020 S39.012D Strain of muscle, fa scia and tendon of lower back, subsequent encounter Natty M. Vespa, R[place] 08/14/2020 S39.012D Strain of muscle, fa scia and tendon of lower back, subsequent encounter Natty M. Vespa, RUST 08/10/2020 S39.012D Strain of muscle, fa scia and tendon of lower back, subsequent encounter Channing Malave MD 08/07/2020 S39.012D Strain of muscle, fa scia and tendon of lower back, subsequent encounter NEGIN Bolanos 07/29/2020 S39.012D Strain of muscle, fa scia and tendon of lower back, subsequent encounter NEGIN Bolanos Plan of Treatment Future Appointment(s):* 02/23/2021 4:00 pm - MARISABEL Cano at [place] 01/28/2021 - MARISABEL Cano* S39.012D Strain of muscle, fascia and tendon of lower back, subsequent encounter * M51.26 Other intervertebral disc displacement, lumbar region * M51.27 Other intervertebral disc displacement, lumbosacral region Functional Status Description No Information Available Mental Status Description No Information Available Referrals Refer to Dr Reason for Referral Status Appt Date Brianna Malave MD MRI LUMBAR SPINE OK TO [facility] ER MTGS AND PER PAULINO OK TO [facility] AT [facility] FEE [facility]. PASSED TO JOMAR. Created [address] [place] [phone] Brianna Malave MD PT LOW BACK WRITTEN AUTH PASSED TO PT DEPT. Created [address] [place] [phone] Brianna Malave MD PT- LOW BACK OK TO [facility] 2ND SET. [facility] PT DEPT. Created [address] [place] [phone]
--- OUTSIDE RECORDS SUMMARY | 2021-03-15 09:52 | CCD | Continuity of Care Document ---
Author Author Darius MOONEY P.T. Organization Unknown Address [address] [place] [address] [address] [place] [address] Phone [phone] Problems Description No Information Available Social History Type Date Description Comments Sex Unknown Tobacco Use Start: Unknown End: Unknown Patient is a former smoker Allergies, Adverse Reactions, Alerts Description No Known Drug Allergies Medications Active Medications SIG Qnty Indications Ordering Provide r Date Pfizer-Biontech Covid-19 Vaccine 30mcg/0.3ML Suspension Unknown Cyclobenzaprine HCL 10mg Tablets Althea Dahl, CAR[employer] INSPECTOR FINISHED Ibuprofen 600mg Tablets Althea Dahl, CARPET INSPECTOR FINISHED History Medications No Active Medications Unknown - 11/04/2020 Immunizations Description No Information Available Vital Signs Date Vital Result Comment 07/13/2020 1:10pm Body Temperature 96.4 F Height 71.5 inches 5'11.50" Weight 276.00 lb BMI (Body Mass Index) 38.0 kg/m2 Results Description No Information Available Procedures Date Code Description Status 12/23/2020 23586 Office/Outpatient Established Lo w MDM 20-29 Min Completed 12/22/2020 36910 Manual Therapy Each 15 Minutes C ompleted 12/22/2020 36636 Hot Or Cold Packs Completed 12/22/2020 77678 Therapeutic Procedure, Each 15 M inutes Completed 12/17/2020 72572 Re-Eval Of PT Establ ished Plan Of Care 20Mins Face To Face PT/Fam Completed 12/17/2020 68535 Manual Therapy Each 15 Minutes C ompleted 12/17/2020 96118 Therapeutic Procedure, Each 15 M inutes Completed 12/17/2020 19203 Hot Or Cold Packs Completed 12/15/2020 74777 Manual Therapy Each 15 Minutes C ompleted 12/15/2020 62075 Therapeutic Procedure, Each 15 M inutes Completed 12/15/2020 88059 Hot Or Cold Packs Completed 12/11/2020 94529 Manual Therapy Each 15 Minutes C ompleted 12/11/2020 37270 Hot Or Cold Packs Completed 12/11/2020 75026 Therapeutic Procedure, Each 15 M inutes Completed 12/09/2020 90366 Manual Therapy Each 15 Minutes C ompleted 12/09/2020 68692 Therapeutic Procedure, Each 15 M inutes Completed 12/09/2020 43432 Hot Or Cold Packs Completed 12/04/2020 72666 Manual Therapy Each 15 Minutes C ompleted 12/04/2020 17458 Therapeutic Procedure, Each 15 M inutes Completed 12/02/2020 34787 Therapeutic Procedure, Each 15 M inutes Completed 12/02/2020 79397 Manual Therapy Each 15 Minutes C ompleted 11/27/2020 76489 Manual Therapy Each 15 Minutes C ompleted 11/27/2020 34551 Therapeutic Procedure, Each 15 M inutes Completed 11/27/2020 02132 Hot Or Cold Packs Completed 11/25/2020 82390 Manual Therapy Each 15 Minutes C ompleted 11/25/2020 46258 Therapeutic Procedure, Each 15 M inutes Completed 11/17/2020 05588 Re-Eval Of PT Establ ished Plan Of Care 20Mins Face To Face PT/Fam Completed 11/04/2020 73104 Office/Outpatient Established Lo w MDM 20-29 Min Completed 10/08/2020 56624 Manual Therapy Each 15 Minutes C ompleted 10/08/2020 02343 Therapeutic Procedure, Each 15 M inutes Completed 10/01/2020 65454 Manual Therapy Each 15 Minutes C ompleted 10/01/2020 93513 Hot Or Cold Packs Completed 10/01/2020 12778 Therapeutic Procedure, Each 15 M inutes Completed 09/23/2020 12922 Manual Therapy Each 15 Minutes C ompleted 09/23/2020 32265 Therapeutic Procedure, Each 15 M inutes Completed 09/23/2020 19071 Electrical Stimulati on Manual, Each 15 Min, Constant Attendance Completed 09/23/2020 99885 Hot Or Cold Packs Completed 09/21/2020 55431 Office/Outpatient Established Mo d MDM 30-39 Min Completed 09/21/2020 82458 Hot Or Cold Packs Completed 09/21/2020 71411 Electrical Stimulati on Manual, Each 15 Min, Constant Attendance Completed 09/21/2020 27798 Manual Therapy Each 15 Minutes C ompleted 09/21/2020 77049 Therapeutic Procedure, Each 15 M inutes Completed 09/17/2020 43420 Re-Eval Of PT Establ ished Plan Of Care 20Mins Face To Face PT/Fam Completed 09/17/2020 06335 Manual Therapy Each 15 Minutes C ompleted 09/17/2020 10741 Therapeutic Procedure, Each 15 M inutes Completed 09/17/2020 13231 Electrical Stimulati on Manual, Each 15 Min, Constant Attendance Completed 09/17/2020 69203 Hot Or Cold Packs Completed 09/15/2020 75830 Manual Therapy Each 15 Minutes C ompleted 09/15/2020 58572 Therapeutic Procedure, Each 15 M inutes Completed 09/15/2020 99333 Electrical Stimulati on Manual, Each 15 Min, Constant Attendance Completed 09/15/2020 10008 Hot Or Cold Packs Completed 09/11/2020 59559 Manual Therapy Each 15 Minutes C ompleted 09/11/2020 93601 Therapeutic Procedure, Each 15 M inutes Completed 09/11/2020 55109 Electrical Stimulati on Manual, Each 15 Min, Constant Attendance Completed 09/11/2020 93535 Hot Or Cold Packs Completed 09/09/2020 84310 Hot Or Cold Packs Completed 09/09/2020 28549 Electrical Stimulati on Manual, Each 15 Min, Constant Attendance Completed 09/09/2020 40548 Manual Therapy Each 15 Minutes C ompleted 09/09/2020 86292 Therapeutic Procedure, Each 15 M inutes Completed 08/24/2020 95116 Therapeutic Procedure, Each 15 M inutes Completed 08/24/2020 41079 Therapeutic Procedure, Each 15 M inutes Completed 08/24/2020 14331 Electrical Stimulati on Manual, Each 15 Min, Constant Attendance Completed 08/24/2020 15429 Hot Or Cold Packs Completed 08/19/2020 98633 Therapeutic Procedure, Each 15 M inutes Completed 08/19/2020 82534 Electrical Stimulati on Manual, Each 15 Min, Constant Attendance Completed 08/19/2020 26373 Hot Or Cold Packs Completed 08/14/2020 42778 Therapeutic Procedure, Each 15 M inutes Completed 08/14/2020 95980 Hot Or Cold Packs Completed 08/14/2020 18869 Electrical Stimulati on Manual, Each 15 Min, Constant Attendance Completed 08/10/2020 64253 Office/Outpatient Established Lo w MDM 20-29 Min Completed 08/07/2020 91767 Therapeutic Procedure, Each 15 M inutes Completed 08/07/2020 32712 Electrical Stimulati on Manual, Each 15 Min, Constant Attendance Completed 08/07/2020 17547 Hot Or Cold Packs Completed 07/29/2020 00211 Physical Therapy Eval - Low Comp lexity Completed 07/13/2020 50075 Office/Outpatient New Moderate M DM 45-59 Minutes Completed Medical Devices Description No Information Available Encounters Type Date Location Provider Dx Diagnosis Office Visit 12/23/2020 4:00p [place] SARA Cano S39.012D Strain of muscle, fascia and tendon of lower back, subs M51.26 Other intervertebral disc di splacement, lumbar region M51.27 Other intervertebral disc di splacement, lumbosacral region Office Visit 11/04/2020 4:30p [place] SARA Cano S39.012D Strain of muscle, fascia and tendon of lower back, subs Office Visit 09/21/2020 1:00p Brent Malave MD S3 9.012D Strain of muscle, fascia and tendon of lower back, subs Office Visit 08/10/2020 1:00p Brent Malave MD S3 9.012D Strain of muscle, fascia and tendon of lower back, subs Office Visit 07/13/2020 1:00p Brent Malave MD S3 9.012A Strain of muscle, fascia and tendon of lower back, init Assessments Date Code Description Provider 12/23/2020 S39.012D Strain of muscle, fa scia and tendon of lower back, subsequent encounter SARA Cano 12/23/2020 M51.26 Other intervertebral disc displa cement, lumbar region SARA Cano 12/23/2020 M51.27 Other intervertebral disc displa cement, lumbosacral region SARA Cano 12/22/2020 S39.012D Strain of muscle, fa scia and tendon of lower back, subsequent encounter Hiram Mooney P.T. 12/17/2020 S39.012D Strain of muscle, fa scia and tendon of lower back, subsequent encounter Natty M. Jonathanpa, [facility] 12/15/2020 S39.012D Strain of muscle, fa scia and tendon of lower back, subsequent encounter Natty M. Vespa, [facility] 12/11/2020 S39.012D Strain of muscle, fa scia and tendon of lower back, subsequent encounter Natty M. Vespa, [facility] 12/09/2020 S39.012D Strain of muscle, fa scia and tendon of lower back, subsequent encounter Hiram Mooney P.T. 12/04/2020 S39.012D Strain of muscle, fa scia and tendon of lower back, subsequent encounter Hiram Mooney P.T. 12/02/2020 S39.012D Strain of muscle, fa scia and tendon of lower back, subsequent encounter Natty M. Vespa, [facility] 11/27/2020 S39.012D Strain of muscle, fa scia and tendon of lower back, subsequent encounter Natty M. Vespa, [facility] 11/25/2020 S39.012D Strain of muscle, fa scia and tendon of lower back, subsequent encounter Natty M. Vespa, [facility] 11/17/2020 S39.012D Strain of muscle, fa scia and tendon of lower back, subsequent encounter Natty M. Vespa, [facility] 11/04/2020 S39.012D Strain of muscle, fa scia and tendon of lower back, subsequent encounter SARA Cano 10/08/2020 S39.012D Strain of muscle, fa scia and tendon of lower back, subsequent encounter Natty M. Vespa, [facility] 10/01/2020 S39.012D Strain of muscle, fa scia and tendon of lower back, subsequent encounter Natty M. Jonathanpa, [facility] 09/23/2020 S39.012D Strain of muscle, fa scia and tendon of lower back, subsequent encounter Natty M. Vespa, [facility] 09/21/2020 S39.012D Strain of muscle, fa scia and tendon of lower back, subsequent encounter Natty M. Jonathanpa, [facility] 09/21/2020 S39.012D Strain of muscle, fa scia and tendon of lower back, subsequent encounter Channing Malave MD 09/17/2020 S39.012D Strain of muscle, fa scia and tendon of lower back, subsequent encounter Natty M. Jonathanpa, [facility] 09/15/2020 S39.012D Strain of muscle, fa scia and tendon of lower back, subsequent encounter Natty M. Vespa, [facility] 09/11/2020 S39.012D Strain of muscle, fa scia and tendon of lower back, subsequent encounter Natty M. Jonathanpa, [facility] 09/09/2020 S39.012D Strain of muscle, fa scia and tendon of lower back, subsequent encounter Natty M. Vespa, [facility] 08/24/2020 S39.012D Strain of muscle, fa scia and tendon of lower back, subsequent encounter Hiram Mooney P.T. 08/19/2020 S39.012D Strain of muscle, fa scia and tendon of lower back, subsequent encounter Natty M. Vespa, [facility] 08/14/2020 S39.012D Strain of muscle, fa scia and tendon of lower back, subsequent encounter Natty M. Vespa, [facility] 08/10/2020 S39.012D Strain of muscle, fa scia and tendon of lower back, subsequent encounter Channing Malave MD 08/07/2020 S39.012D Strain of muscle, fa scia and tendon of lower back, subsequent encounter Natty M. Vespa, [facility] 07/29/2020 S39.012D Strain of muscle, fa scia and tendon of lower back, subsequent encounter Natty M. Vespa, [facility] 07/13/2020 S39.012A Strain of muscle, fa scia and tendon of lower back, initial encounter Channing Malave MD Plan of Treatment Future Appointment(s):* 01/28/2021 1:00 pm - SARA Cano at [place] 12/23/2020 - SARA Cano* S39.012D Strain of muscle, fascia and tendon of lower back, subsequent encounter * M51.26 Other intervertebral disc displacement, lumbar region * M51.27 Other intervertebral disc displacement, lumbosacral region Functional Status Description No Information Available Mental Status Description No Information Available Referrals Refer to Dr Reason for Referral Status Appt Date Brianna Malave MD MRI LUMBAR SPINE OK TO [facility] P ER MTGS AND PER PAULINO OK TO [facility] AT [facility] FEE [facility]. PASSED TO [facility]. Created [address] [place] [address] [phone] Brianna Malave MD PT LOW BACK WRITTEN AUTH PASSED TO PT DEPT. Created [address] [place] [phone] Brianna Malave MD PT- LOW BACK OK TO [facility] 2ND SET. TRI AGED PT DEPT. Created [address] [place] [phone] Kian Younger, PA-C PT LOW BACK OK TO [facility] 1ST SET PASSE D TO PT DEPT. Created [address] [place], [place] [id number] [phone]
--- OUTSIDE RECORDS SUMMARY | 2021-03-15 09:52 | CCD | Continuity of Care Document ---
Author Author Darius GUZMAN PA Organization Unknown Address [address] [place] [address], [address] [address] Phone [phone] Problems Description No Information Available Social History Type Date Description Comments Sex Unknown Tobacco Use Start: Unknown End: Unknown Patient is a former smoker Allergies, Adverse Reactions, Alerts Description No Known Drug Allergies Medications Active Medications SIG Qnty Indications Ordering Provide r Date Pfizer-BiontLoogla Covid-19 Vaccine 30mcg/0.3ML Suspension Unknown Cyclobenzaprine HCL 10mg Tablets Althea Dahl, STOREKEEPER HELPER Ibuprofen 600mg Tablets Althea Dahl, STOREKEEPER HELPER Immunizations Description No Information Available Vital Signs Date Vital Result Comment 07/13/2020 1:10pm Body Temperature 96.4 F Height 71.5 inches 5'11.50" Weight 276.00 lb BMI (Body Mass Index) 38.0 kg/m2 Results Description No Information Available Procedures Date Code Description Status 02/23/2021 77794 Office/Outpatient Established Lo w MDM 20-29 Min Completed 01/28/2021 02599 Office/Outpatient Established Lo w MDM 20-29 Min Completed 12/23/2020 83290 Office/Outpatient Established Lo w MDM 20-29 Min Completed 12/22/2020 05490 Manual Therapy Each 15 Minutes C ompleted 12/22/2020 12669 Therapeutic Procedure, Each 15 M inutes Completed 12/22/2020 81073 Hot Or Cold Packs Completed 12/17/2020 24265 Re-Eval Of PT Establ ished Plan Of Care 20Mins Face To Face PT/Fam Completed 12/17/2020 41822 Manual Therapy Each 15 Minutes C ompleted 12/17/2020 76583 Therapeutic Procedure, Each 15 M inutes Completed 12/17/2020 46048 Hot Or Cold Packs Completed 12/15/2020 31240 Manual Therapy Each 15 Minutes C ompleted 12/15/2020 80503 Therapeutic Procedure, Each 15 M inutes Completed 12/15/2020 75315 Hot Or Cold Packs Completed 12/11/2020 70857 Manual Therapy Each 15 Minutes C ompleted 12/11/2020 15056 Therapeutic Procedure, Each 15 M inutes Completed 12/11/2020 88921 Hot Or Cold Packs Completed 12/09/2020 29329 Manual Therapy Each 15 Minutes C ompleted 12/09/2020 93896 Hot Or Cold Packs Completed 12/09/2020 59567 Therapeutic Procedure, Each 15 M inutes Completed 12/04/2020 22898 Manual Therapy Each 15 Minutes C ompleted 12/04/2020 41892 Therapeutic Procedure, Each 15 M inutes Completed 12/02/2020 01672 Manual Therapy Each 15 Minutes C ompleted 12/02/2020 59284 Therapeutic Procedure, Each 15 M inutes Completed 11/27/2020 08176 Manual Therapy Each 15 Minutes C ompleted 11/27/2020 12807 Therapeutic Procedure, Each 15 M inutes Completed 11/27/2020 06835 Hot Or Cold Packs Completed 11/25/2020 47589 Manual Therapy Each 15 Minutes C ompleted 11/25/2020 00785 Therapeutic Procedure, Each 15 M inutes Completed 11/17/2020 36954 Re-Eval Of PT Establ ished Plan Of Care 20Mins Face To Face PT/Fam Completed 11/04/2020 45479 Office/Outpatient Established Lo w MDM 20-29 Min Completed 10/08/2020 12448 Manual Therapy Each 15 Minutes C ompleted 10/08/2020 75604 Therapeutic Procedure, Each 15 M inutes Completed 10/01/2020 75900 Manual Therapy Each 15 Minutes C ompleted 10/01/2020 79936 Therapeutic Procedure, Each 15 M inutes Completed 10/01/2020 12489 Hot Or Cold Packs Completed 09/23/2020 10431 Manual Therapy Each 15 Minutes C ompleted 09/23/2020 69937 Therapeutic Procedure, Each 15 M inutes Completed 09/23/2020 98657 Electrical Stimulati on Manual, Each 15 Min, Constant Attendance Completed 09/23/2020 87316 Hot Or Cold Packs Completed 09/21/2020 71477 Office/Outpatient Established Mo d MDM 30-39 Min Completed 09/21/2020 70842 Manual Therapy Each 15 Minutes C ompleted 09/21/2020 22071 Therapeutic Procedure, Each 15 M inutes Completed 09/21/2020 30770 Electrical Stimulati on Manual, Each 15 Min, Constant Attendance Completed 09/21/2020 85815 Hot Or Cold Packs Completed 09/17/2020 17000 Therapeutic Procedure, Each 15 M inutes Completed 09/17/2020 74449 Hot Or Cold Packs Completed 09/17/2020 85345 Electrical Stimulati on Manual, Each 15 Min, Constant Attendance Completed 09/17/2020 61893 Manual Therapy Each 15 Minutes C ompleted 09/17/2020 63184 Re-Eval Of PT Establ ished Plan Of Care 20Mins Face To Face PT/Fam Completed 09/15/2020 86165 Manual Therapy Each 15 Minutes C ompleted 09/15/2020 38743 Therapeutic Procedure, Each 15 M inutes Completed 09/15/2020 03198 Electrical Stimulati on Manual, Each 15 Min, Constant Attendance Completed 09/15/2020 41755 Hot Or Cold Packs Completed 09/11/2020 13909 Manual Therapy Each 15 Minutes C ompleted 09/11/2020 79815 Therapeutic Procedure, Each 15 M inutes Completed 09/11/2020 20684 Electrical Stimulati on Manual, Each 15 Min, Constant Attendance Completed 09/11/2020 08642 Hot Or Cold Packs Completed 09/09/2020 82280 Manual Therapy Each 15 Minutes C ompleted 09/09/2020 95696 Therapeutic Procedure, Each 15 M inutes Completed 09/09/2020 36396 Electrical Stimulati on Manual, Each 15 Min, Constant Attendance Completed 09/09/2020 22913 Hot Or Cold Packs Completed Medical Devices Description No Information Available Encounters Type Date Location Provider Dx Diagnosis Office Visit 02/23/2021 4:00p [place] SARA Cano S39.012D Strain of muscle, fascia and tendon of lower back, subs M51.26 Other intervertebral disc di splacement, lumbar region M51.27 Other intervertebral disc di splacement, lumbosacral region Office Visit 01/28/2021 1:00p [place] SARA Cano S39.012D Strain of muscle, fascia and tendon of lower back, subs M51.26 Other intervertebral disc di splacement, lumbar region M51.27 Other intervertebral disc di splacement, lumbosacral region Office Visit 12/23/2020 4:00p [place] SARA Cano S39.012D Strain of muscle, fascia and tendon of lower back, subs M51.26 Other intervertebral disc di splacement, lumbar region M51.27 Other intervertebral disc di splacement, lumbosacral region Office Visit 11/04/2020 4:30p [place] SARA Cano S39.012D Strain of muscle, fascia and tendon of lower back, subs Office Visit 09/21/2020 1:00p [place] Channing Malave MD S3 9.012D Strain of muscle, fascia and tendon of lower back, subs Assessments Date Code Description Provider 02/23/2021 S39.012D Strain of muscle, fa scia and tendon of lower back, subsequent encounter SARA Cano 02/23/2021 M51.26 Other intervertebral disc displa cement, lumbar region SARA Cano 02/23/2021 M51.27 Other intervertebral disc displa cement, lumbosacral region SARA Cano 01/28/2021 S39.012D Strain of muscle, fa scia and tendon of lower back, subsequent encounter SARA Cano 01/28/2021 M51.26 Other intervertebral disc displa cement, lumbar region SARA Cano 01/28/2021 M51.27 Other intervertebral disc displa cement, lumbosacral region SARA Cano 12/23/2020 S39.012D Strain of muscle, fa scia [...] lower back, subsequent encounter Natty M. Jonathanpa, [facility] 12/15/2020 S39.012D Strain of muscle, fa scia and tendon of lower back, subsequent encounter Natty M. Vespa, [facility] 12/11/2020 S39.012D Strain of muscle, fa scia and tendon of lower back, subsequent encounter Natty M. Vespa, [facility] 12/09/2020 S39.012D Strain of muscle, fa scia and tendon of lower back, subsequent encounter Hiram Mooney P.TAdis 12/04/2020 S39.012D Strain of muscle, fa scia and tendon of lower back, subsequent encounter Hiram Mooney P.T. 12/02/2020 S39.012D Strain of muscle, fa scia and tendon of lower back, subsequent encounter Natty M. Vespa, [facility] 11/27/2020 S39.012D Strain of muscle, fa scia and tendon of lower back, subsequent encounter Natty M. Vespa, [facility] 11/25/2020 S39.012D Strain of muscle, fa scia and tendon of lower back, subsequent encounter Natty M. Vespa, [facility] 11/17/2020 S39.012D Strain of muscle, fa scia and tendon of lower back, subsequent encounter Natty M. Vespa, [facility] 11/04/2020 S39.012D Strain of muscle, fa scia and tendon of lower back, subsequent encounter SARA Cano 10/08/2020 S39.012D Strain of muscle, fa scia and tendon of lower back, subsequent encounter Natty M. Vespa, [facility] 10/01/2020 S39.012D Strain of muscle, fa scia and tendon of lower back, subsequent encounter Natty M. Vespa, [facility] 09/23/2020 S39.012D Strain of muscle, fa scia and tendon of lower back, subsequent encounter Natty Cross, [facility] 09/21/2020 S39.012D Strain of muscle, fa scia and tendon of lower back, subsequent encounter Natty Cross, [facility] 09/21/2020 S39.012D Strain of muscle, fa scia and tendon of lower back, subsequent encounter Channing Malave MD 09/17/2020 S39.012D Strain of muscle, fa scia and tendon of lower back, subsequent encounter Natty Cross, [facility] 09/15/2020 S39.012D Strain of muscle, fa scia and tendon of lower back, subsequent encounter Natty Cross, [facility] 09/11/2020 S39.012D Strain of muscle, fa scia and tendon of lower back, subsequent encounter Natty Cross, [facility] 09/09/2020 S39.012D Strain of muscle, fa scia and tendon of lower back, subsequent encounter Natty Cross, [facility] Plan of Treatment Future Appointment(s):* 03/25/2021 3:20 pm - SARA Cano at [place] 02/23/2021 - SARA Cano* S39.012D Strain of muscle, fascia and tendon of lower back, subsequent encounter * M51.26 Other intervertebral disc displacement, lumbar region * M51.27 Other intervertebral disc displacement, lumbosacral region Functional Status Description No Information Available Mental Status Description No Information Available Referrals Refer to Dr Reason for Referral Status Appt Date Brianna Malave MD PT LOW BACK WRITTEN AUTH FOR 8 VISITS. PASSED TO PT DEPT. Created [address] [place] [address], [address] [address] [phone] Brianna Malave MD MRI LUMBAR SPINE OK TO [facility] ER MTGS AND PER PAULINO OK TO [facility] FEE [facility]. PASSED TO [facility]. Created [address] [place] [address], [address] [address] [phone] Brianna Malave MD PT LOW BACK WRITTEN AUTH PASSED TO PT DEPT. LS Created [address] [facility], [address] [place] [address] [phone]
--- OUTSIDE RECORDS SUMMARY | 2021-03-15 09:52 | CCD | Continuity of Care Document ---
Author Author Darius AGUILAR PA Organization Unknown Address [address] [place] [address] Phone [phone] Problems Description No Information Available Social History Type Date Description Comments Sex Unknown Tobacco Use Start: Unknown End: Unknown Patient is a former smoker Allergies, Adverse Reactions, Alerts Description No Known Drug Allergies Medications Active Medications SIG Qnty Indications Ordering Provide r Date Pfizer-BiontRockabox Covid-19 Vaccine 30mcg/0.3ML Suspension Unknown Cyclobenzaprine HCL 10mg Tablets Althea Dahl, TOYS INSPECTOR Ibuprofen 600mg Tablets Althea Dahl, TOYS INSPECTOR Immunizations Description No Information Available Vital Signs Date Vital Result Comment 07/13/2020 1:10pm Body Temperature 96.4 F Height 71.5 inches 5'11.50" Weight 276.00 lb BMI (Body Mass Index) 38.0 kg/m2 Results Description No Information Available Procedures Date Code Description Status 01/28/2021 09596 Office/Outpatient Established Lo w MDM 20-29 Min Completed 12/23/2020 42536 Office/Outpatient Established Lo w MDM 20-29 Min Completed 12/22/2020 06267 Therapeutic Procedure, Each 15 M inutes Completed 12/22/2020 65691 Hot Or Cold Packs Completed 12/22/2020 62367 Manual Therapy Each 15 Minutes C ompleted 12/17/2020 85296 Re-Eval Of PT Establ ished Plan Of Care 20Mins Face To Face PT/Fam Completed 12/17/2020 04860 Manual Therapy Each 15 Minutes C ompleted 12/17/2020 42280 Therapeutic Procedure, Each 15 M inutes Completed 12/17/2020 43176 Hot Or Cold Packs Completed 12/15/2020 41923 Therapeutic Procedure, Each 15 M inutes Completed 12/15/2020 72528 Hot Or Cold Packs Completed 12/15/2020 32715 Manual Therapy Each 15 Minutes C ompleted 12/11/2020 84507 Manual Therapy Each 15 Minutes C ompleted 12/11/2020 08310 Therapeutic Procedure, Each 15 M inutes Completed 12/11/2020 94806 Hot Or Cold Packs Completed 12/09/2020 59959 Manual Therapy Each 15 Minutes C ompleted 12/09/2020 39131 Therapeutic Procedure, Each 15 M inutes Completed 12/09/2020 81609 Hot Or Cold Packs Completed 12/04/2020 31418 Manual Therapy Each 15 Minutes C ompleted 12/04/2020 65426 Therapeutic Procedure, Each 15 M inutes Completed 12/02/2020 74373 Manual Therapy Each 15 Minutes C ompleted 12/02/2020 41025 Therapeutic Procedure, Each 15 M inutes Completed 11/27/2020 63338 Manual Therapy Each 15 Minutes C ompleted 11/27/2020 02199 Therapeutic Procedure, Each 15 M inutes Completed 11/27/2020 85298 Hot Or Cold Packs Completed 11/25/2020 37012 Manual Therapy Each 15 Minutes C ompleted 11/25/2020 00232 Therapeutic Procedure, Each 15 M inutes Completed 11/17/2020 11665 Re-Eval Of PT Establ ished Plan Of Care 20Mins Face To Face PT/Fam Completed 11/04/2020 88168 Office/Outpatient Established Lo w MDM 20-29 Min Completed 10/08/2020 10790 Manual Therapy Each 15 Minutes C ompleted 10/08/2020 49796 Therapeutic Procedure, Each 15 M inutes Completed 10/01/2020 82659 Manual Therapy Each 15 Minutes C ompleted 10/01/2020 35395 Therapeutic Procedure, Each 15 M inutes Completed 10/01/2020 73513 Hot Or Cold Packs Completed 09/23/2020 62294 Hot Or Cold Packs Completed 09/23/2020 09867 Electrical Stimulati on Manual, Each 15 Min, Constant Attendance Completed 09/23/2020 12266 Manual Therapy Each 15 Minutes C ompleted 09/23/2020 64612 Therapeutic Procedure, Each 15 M inutes Completed 09/21/2020 75605 Office/Outpatient Established Mo d MDM 30-39 Min Completed 09/21/2020 42776 Manual Therapy Each 15 Minutes C ompleted 09/21/2020 61662 Therapeutic Procedure, Each 15 M inutes Completed 09/21/2020 74785 Electrical Stimulati on Manual, Each 15 Min, Constant Attendance Completed 09/21/2020 92249 Hot Or Cold Packs Completed 09/17/2020 88356 Therapeutic Procedure, Each 15 M inutes Completed 09/17/2020 36960 Hot Or Cold Packs Completed 09/17/2020 81741 Electrical Stimulati on Manual, Each 15 Min, Constant Attendance Completed 09/17/2020 36351 Manual Therapy Each 15 Minutes C ompleted 09/17/2020 50631 Re-Eval Of PT Establ ished Plan Of Care 20Mins Face To Face PT/Fam Completed 09/15/2020 22490 Manual Therapy Each 15 Minutes C ompleted 09/15/2020 41615 Therapeutic Procedure, Each 15 M inutes Completed 09/15/2020 58776 Electrical Stimulati on Manual, Each 15 Min, Constant Attendance Completed 09/15/2020 58670 Hot Or Cold Packs Completed 09/11/2020 67265 Hot Or Cold Packs Completed 09/11/2020 02375 Electrical Stimulati on Manual, Each 15 Min, Constant Attendance Completed 09/11/2020 36041 Manual Therapy Each 15 Minutes C ompleted 09/11/2020 98883 Therapeutic Procedure, Each 15 M inutes Completed 09/09/2020 27228 Manual Therapy Each 15 Minutes C ompleted 09/09/2020 65524 Therapeutic Procedure, Each 15 M inutes Completed 09/09/2020 72590 Electrical Stimulati on Manual, Each 15 Min, Constant Attendance Completed 09/09/2020 45865 Hot Or Cold Packs Completed 08/24/2020 88019 Therapeutic Procedure, Each 15 M inutes Completed 08/24/2020 13022 Therapeutic Procedure, Each 15 M inutes Completed 08/24/2020 07850 Electrical Stimulati on Manual, Each 15 Min, Constant Attendance Completed 08/24/2020 99787 Hot Or Cold Packs Completed 08/19/2020 29565 Therapeutic Procedure, Each 15 M inutes Completed 08/19/2020 54673 Hot Or Cold Packs Completed 08/19/2020 83064 Electrical Stimulati on Manual, Each 15 Min, Constant Attendance Completed 08/14/2020 39074 Therapeutic Procedure, Each 15 M inutes Completed 08/14/2020 01179 Electrical Stimulati on Manual, Each 15 Min, Constant Attendance Completed 08/14/2020 21325 Hot Or Cold Packs Completed 08/10/2020 81933 Office/Outpatient Established Lo w MDM 20-29 Min Completed 08/07/2020 95105 Therapeutic Procedure, Each 15 M inutes Completed 08/07/2020 65974 Electrical Stimulati on Manual, Each 15 Min, Constant Attendance Completed 08/07/2020 74891 Hot Or Cold Packs Completed Medical Devices Description No Information Available Encounters Type Date Location Provider Dx Diagnosis Office Visit 01/28/2021 1:00p [place] MARISABEL Cano S39.012D Strain of muscle, fascia and tendon of lower back, subs M51.26 Other intervertebral disc di splacement, lumbar region M51.27 Other intervertebral disc di splacement, lumbosacral region Office Visit 12/23/2020 4:00p [place] MARISABEL Cano S39.012D Strain of muscle, fascia and tendon of lower back, subs M51.26 Other intervertebral disc di splacement, lumbar region M51.27 Other intervertebral disc di splacement, lumbosacral region Office Visit 11/04/2020 4:30p [place] MARISABEL Cano S39.012D Strain of muscle, fascia and tendon of lower back, subs Office Visit 09/21/2020 1:00p [place] Malave MD S3 9.012D Strain of muscle, fascia and tendon of lower back, subs Office Visit 08/10/2020 1:00p Brent Malave MD S3 9.012D Strain of muscle, fascia and tendon of lower back, subs Assessments Date Code Description Provider 01/28/2021 S39.012D Strain of muscle, fa scia and tendon of lower back, subsequent encounter MARISABEL Cano 01/28/2021 M51.26 Other intervertebral disc displa cement, lumbar region Jad Aguilar, MARISABEL 01/28/2021 M51.27 Other intervertebral disc displa cement, lumbosacral region Jad Aguilar, MARISABEL 12/23/2020 S39.012D Strain of muscle, fa scia and tendon of lower back, subsequent encounter MARISABEL Cano 12/23/2020 M51.26 Other intervertebral disc displa cement, lumbar region MARISABEL Cano 12/23/2020 M51.27 Other intervertebral disc displa cement, lumbosacral region Jad Aguilar, PA 12/22/2020 S39.012D Strain of muscle, fa scia and tendon of lower back, subsequent encounter Hiram Mooney P.T. 12/17/2020 S39.012D Strain of muscle, fa scia and tendon of lower back, subsequent encounter Natty M. Jonathanmarisabel, [facility] 12/15/2020 S39.012D Strain of muscle, fa scia and tendon of lower back, subsequent encounter Natty M. Vespa, [facility] 12/11/2020 S39.012D Strain of muscle, fa scia and tendon of lower back, subsequent encounter Natty M. Vespa, [facility] 12/09/2020 S39.012D Strain of muscle, fa scia and tendon of lower back, subsequent encounter Hiram Mooney P.TAdis 12/04/2020 S39.012D Strain of muscle, fa scia and tendon of lower back, subsequent encounter Hiram Mooney P.T. 12/02/2020 S39.012D Strain of muscle, fa scia and tendon of lower back, subsequent encounter Natty M. Vespa, [facility] 11/27/2020 S39.012D Strain of muscle, fa scia and tendon of lower back, subsequent encounter Natty M. Vespa, [facility] 11/25/2020 S39.012D Strain of muscle, fa scia and tendon of lower back, subsequent encounter Natty M. Vespa, [facility] 11/17/2020 S39.012D Strain of muscle, fa scia and tendon of lower back, subsequent encounter Natty M. Vespa, [facility] 11/04/2020 S39.012D Strain of muscle, fa scia and tendon of lower back, subsequent encounter MARISABEL Cano 10/08/2020 S39.012D Strain of muscle, fa scia and tendon of lower back, subsequent encounter Natty M. Jonathanpa, [facility] 10/01/2020 S39.012D Strain of muscle, fa scia and tendon of lower back, subsequent encounter Natty M. Vespa, [facility] 09/23/2020 S39.012D Strain of muscle, fa scia and tendon of lower back, subsequent encounter Natty M. Vespa, [facility] 09/21/2020 S39.012D Strain of muscle, fa scia and tendon of lower back, subsequent encounter Natty M. Vespa, [facility] 09/21/2020 S39.012D Strain of muscle, fa scia and tendon of lower back, subsequent encounter Channing Malave MD 09/17/2020 S39.012D Strain of muscle, fa scia and tendon of lower back, subsequent encounter Natty M. Jonathanpa, [facility] 09/15/2020 S39.012D Strain of muscle, fa scia and tendon of lower back, subsequent encounter Natty M. Vespa, [facility] 09/11/2020 S39.012D Strain of muscle, fa scia and tendon of lower back, subsequent encounter Natty M. Vespa, [facility] 09/09/2020 S39.012D Strain of muscle, fa scia and tendon of lower back, subsequent encounter Natty M. Jonathanpa, [facility] 08/24/2020 S39.012D Strain of muscle, fa scia and tendon of lower back, subsequent encounter Hiram Mooney P.T. 08/19/2020 S39.012D Strain of muscle, fa scia and tendon of lower back, subsequent encounter Natty M. Vespa, [facility] 08/14/2020 S39.012D Strain of muscle, fa scia and tendon of lower back, subsequent encounter Natty M. Vespa, [facility] 08/10/2020 S39.012D Strain of muscle, fa scia and tendon of lower back, subsequent encounter Channing Malave MD 08/07/2020 S39.012D Strain of muscle, fa scia and tendon of lower back, subsequent encounter Natty Cross, [facility] Plan of Treatment Future Appointment(s):* 02/23/2021 4:00 pm - MARISABEL Cano at [place] 01/28/2021 - MARISABEL Cano* S39.012D Strain of [...] 8 VISITS. PASSED TO PT DEPT. Created [address] [place] [address] [phone] Brianna Malave MD MRI LUMBAR SPINE OK TO [facility] MTGS AND PER PAULINO OK TO [facility]. PASSED TO [facility] Created [address] [place] [phone] Brianna Malave MD PT LOW BACK WRITTEN AUTH PASSED TO PT DEPT. Created [address] [place] [address] [phone] Brianna Malave MD PT- LOW BACK OK TO [facility] 2ND SET. [facility] PT DEPT. Created [address] [place] [phone] [phone]
--- OUTSIDE RECORDS SUMMARY | 2021-03-15 09:53 | CCD | Continuity of Care Document ---
Author Author Darius [facility]OSS [facility] Organization Unknown Address [address] [place] [address] Phone [phone] Problems Description No Information Available Social History Type Date Description Comments Sex Unknown Tobacco Use Start: Unknown End: Unknown Patient is a former smoker Allergies, Adverse Reactions, Alerts Description No Known Drug Allergies Medications Active Medications SIG Qnty Indications Ordering Provide r Date [employer] Covid-19 Vaccine 30mcg/0.3ML Suspension Unknown Cyclobenzaprine HCL 10mg Tablets Althea Dahl, ORDER FULFILLMENT SPECIALIST Ibuprofen 600mg Tablets Althea Dahl, ORDER FULFILLMENT SPECIALIST History Medications No Active Medications Unknown - 11/04/2020 Immunizations Description No Information Available Vital Signs Date Vital Result Comment 07/13/2020 1:10pm Body Temperature 96.4 F Height 71.5 inches 5'11.50" Weight 276.00 lb BMI (Body Mass Index) 38.0 kg/m2 Results Description No Information Available Procedures Date Code Description Status 12/15/2020 91435 Therapeutic Procedure, Each 15 M inutes Completed 12/15/2020 01085 Hot Or Cold Packs Completed 12/15/2020 25780 Manual Therapy Each 15 Minutes C ompleted 12/11/2020 79561 Manual Therapy Each 15 Minutes C ompleted 12/11/2020 07235 Therapeutic Procedure, Each 15 M inutes Completed 12/11/2020 98160 Hot Or Cold Packs Completed 12/09/2020 52986 Manual Therapy Each 15 Minutes C ompleted 12/09/2020 77614 Therapeutic Procedure, Each 15 M inutes Completed 12/09/2020 24072 Hot Or Cold Packs Completed 12/04/2020 88430 Manual Therapy Each 15 Minutes C ompleted 12/04/2020 35832 Therapeutic Procedure, Each 15 M inutes Completed 12/02/2020 85655 Manual Therapy Each 15 Minutes C ompleted 12/02/2020 11794 Therapeutic Procedure, Each 15 M inutes Completed 11/27/2020 61467 Hot Or Cold Packs Completed 11/27/2020 34632 Therapeutic Procedure, Each 15 M inutes Completed 11/27/2020 21001 Manual Therapy Each 15 Minutes C ompleted 11/25/2020 53786 Manual Therapy Each 15 Minutes C ompleted 11/25/2020 53816 Therapeutic Procedure, Each 15 M inutes Completed 11/17/2020 36305 Re-Eval Of PT Establ ished Plan Of Care 20Mins Face To Face PT/Fam Completed 11/04/2020 46399 Office/Outpatient Established Lo w MDM 20-29 Min Completed 10/08/2020 05421 Manual Therapy Each 15 Minutes C ompleted 10/08/2020 10597 Therapeutic Procedure, Each 15 M inutes Completed 10/01/2020 75202 Manual Therapy Each 15 Minutes C ompleted 10/01/2020 52656 Therapeutic Procedure, Each 15 M inutes Completed 10/01/2020 98416 Hot Or Cold Packs Completed 09/23/2020 47927 Manual Therapy Each 15 Minutes C ompleted 09/23/2020 33179 Therapeutic Procedure, Each 15 M inutes Completed 09/23/2020 26559 Electrical Stimulati on Manual, Each 15 Min, Constant Attendance Completed 09/23/2020 17399 Hot Or Cold Packs Completed 09/21/2020 59584 Electrical Stimulati on Manual, Each 15 Min, Constant Attendance Completed 09/21/2020 46137 Hot Or Cold Packs Completed 09/21/2020 53651 Manual Therapy Each 15 Minutes C ompleted 09/21/2020 76105 Therapeutic Procedure, Each 15 M inutes Completed 09/21/2020 83298 Office/Outpatient Established Mo d MDM 30-39 Min Completed 09/17/2020 75262 Re-Eval Of PT Establ ished Plan Of Care 20Mins Face To Face PT/Fam Completed 09/17/2020 18694 Manual Therapy Each 15 Minutes C ompleted 09/17/2020 62182 Therapeutic Procedure, Each 15 M inutes Completed 09/17/2020 02090 Electrical Stimulati on Manual, Each 15 Min, Constant Attendance Completed 09/17/2020 20552 Hot Or Cold Packs Completed 09/15/2020 28483 Manual Therapy Each 15 Minutes C ompleted 09/15/2020 04003 Therapeutic Procedure, Each 15 M inutes Completed 09/15/2020 17524 Electrical Stimulati on Manual, Each 15 Min, Constant Attendance Completed 09/15/2020 22800 Hot Or Cold Packs Completed 09/11/2020 26707 Manual Therapy Each 15 Minutes C ompleted 09/11/2020 88250 Therapeutic Procedure, Each 15 M inutes Completed 09/11/2020 16681 Electrical Stimulati on Manual, Each 15 Min, Constant Attendance Completed 09/11/2020 93104 Hot Or Cold Packs Completed 09/09/2020 20498 Hot Or Cold Packs Completed 09/09/2020 59686 Electrical Stimulati on Manual, Each 15 Min, Constant Attendance Completed 09/09/2020 51627 Manual Therapy Each 15 Minutes C ompleted 09/09/2020 90215 Therapeutic Procedure, Each 15 M inutes Completed 08/24/2020 29153 Therapeutic Procedure, Each 15 M inutes Completed 08/24/2020 70712 Therapeutic Procedure, Each 15 M inutes Completed 08/24/2020 24311 Electrical Stimulati on Manual, Each 15 Min, Constant Attendance Completed 08/24/2020 37826 Hot Or Cold Packs Completed 08/19/2020 50025 Therapeutic Procedure, Each 15 M inutes Completed 08/19/2020 95401 Electrical Stimulati on Manual, Each 15 Min, Constant Attendance Completed 08/19/2020 54740 Hot Or Cold Packs Completed 08/14/2020 50299 Therapeutic Procedure, Each 15 M inutes Completed 08/14/2020 55569 Hot Or Cold Packs Completed 08/14/2020 41251 Electrical Stimulati on Manual, Each 15 Min, Constant Attendance Completed 08/10/2020 15991 Office/Outpatient Established Lo w MDM 20-29 Min Completed 08/07/2020 98894 Therapeutic Procedure, Each 15 M inutes Completed 08/07/2020 67914 Electrical Stimulati on Manual, Each 15 Min, Constant Attendance Completed 08/07/2020 40240 Hot Or Cold Packs Completed 07/29/2020 47057 Physical Therapy Eval - Low Comp lexity Completed 07/13/2020 99043 Office/Outpatient New Moderate M DM 45-59 Minutes Completed Medical Devices Description No Information Available Encounters Type Date Location Provider Dx Diagnosis Office Visit 11/04/2020 4:30p [place] MARISABEL Cano S39.012D Strain of muscle, fascia and tendon of lower back, subs Office Visit 09/21/2020 1:00p [place] S3 9.012D Strain of muscle, fascia and tendon of lower back, subs Office Visit 08/10/2020 1:00p Brent Malave MD S3 9.012D Strain of muscle, fascia and tendon of lower back, subs Office Visit 07/13/2020 1:00p Brent Malave MD S3 9.012A Strain of muscle, fascia and tendon of lower back, init Assessments Date Code Description Provider 12/15/2020 S39.012D Strain of muscle, fa scia and tendon of lower back, subsequent encounter Natty Cross, [facility] 12/11/2020 S39.012D Strain of muscle, fa scia and tendon of lower back, subsequent encounter Natty Cross, [facility] 12/09/2020 S39.012D Strain of muscle, fa scia and tendon of lower back, subsequent encounter Hiram Mooney P.T. 12/04/2020 S39.012D Strain of muscle, fa scia and tendon of lower back, subsequent encounter Hiram Mooney P.T. 12/02/2020 S39.012D Strain of muscle, fa scia and tendon of lower back, subsequent encounter Natty Cross, [facility] 11/27/2020 S39.012D Strain of muscle, fa scia and tendon of lower back, subsequent encounter Natty Cross, [facility] 11/25/2020 S39.012D Strain of muscle, fa scia and tendon of lower back, subsequent encounter Natty Cross, [facility] 11/17/2020 S39.012D Strain of muscle, fa scia and tendon of lower back, subsequent encounter Natty M. Jonathanpa, [facility] 11/04/2020 S39.012D Strain [...] Natty M. Vespa, [facility] 09/21/2020 S39.012D Strain of muscle, fa scia and tendon of lower back, subsequent encounter Natty M. Vespa, [facility] 09/21/2020 S39.012D Strain of muscle, fa scia and tendon of lower back, subsequent encounter Channing Malave MD 09/17/2020 S39.012D Strain of muscle, fa scia and tendon of lower back, subsequent encounter Natty M. Vespa, [facility] 09/15/2020 S39.012D Strain of muscle, fa scia and tendon of lower back, subsequent encounter Natty M. Vespa, [facility] 09/11/2020 S39.012D Strain of muscle, fa scia and tendon of lower back, subsequent encounter Natty M. Vespa, [facility] 09/09/2020 S39.012D Strain of muscle, fa scia and tendon of lower back, subsequent encounter Natty M. Vespa, [facility] 08/24/2020 S39.012D Strain of muscle, fa scia and tendon of lower back, subsequent encounter Hiram Mooney P.T. 08/19/2020 S39.012D Strain of muscle, fa scia and tendon of lower back, subsequent encounter Natty M. Vespa, [facility] 08/14/2020 S39.012D Strain of muscle, fa scia and tendon of lower back, subsequent encounter Natty M. Vespa, [facility] 08/10/2020 S39.012D Strain of muscle, fa scia and tendon of lower back, subsequent encounter Channing Malave MD 08/07/2020 S39.012D Strain of muscle, fa scia and tendon of lower back, subsequent encounter Natty Castillomarisabel, [facility] 07/29/2020 S39.012D Strain of muscle, fa scia and tendon of lower back, subsequent encounter Natty Castillomarisabel, [facility] 07/13/2020 S39.012A Strain of muscle, fa scia and tendon of lower back, initial encounter Channing Malave MD Plan of Treatment Future Appointment(s):* 12/22/2020 8:00 am - Hiram Mooney P.T. at Physical Therapy * 12/23/2020 4:00 pm - MARISABEL Cano at [place] Functional Status Description No Information Available Mental Status Description No Information Available Referrals Refer to Dr Reason for Referral Status Appt Date Brianna Malave MD MRI LUMBAR SPINE OK TO [facility] P ER MTGS AND PER PAULINO OK TO [facility] AT [facility]. PASSED TO JOMAR. Created [address] [place] [address] [phone] Brianna Malave MD PT LOW BACK WRITTEN AUTH PASSED TO PT DEPT. Created [address] [place] [address] [phone] Brianna Malave MD PT- LOW BACK OK TO [facility] 2ND SET. TRI AGED PT DEPT. Created [facility] [address] [id number] [phone] Kian Younger, PA-C PT LOW BACK OK TO [facility] 1ST SET PASSE D TO PT DEPT. Created [facility] [place] [address] [phone]
--- OUTSIDE RECORDS SUMMARY | 2021-03-15 09:53 | CCD | Continuity of Care Document ---
Author Author Darius [facility] Organization Unknown Address [address] [place] [address] Phone [phone] Problems Description No Information Available Social History Type Date Description Comments Sex Unknown Tobacco Use Start: Unknown End: Unknown Patient is a former smoker Allergies, Adverse Reactions, Alerts Description No Known Drug Allergies Medications Active Medications SIG Qnty Indications Ordering Provide r Date [employer] Covid-19 Vaccine 30mcg/0.3ML Suspension Unknown Cyclobenzaprine HCL 10mg Tablets Althea Dahl, INSPECTOR WREATH Ibuprofen 600mg Tablets Althea Dahl, INSPECTOR WREATH History Medications No Active Medications Unknown - 11/04/2020 Immunizations Description No Information Available Vital Signs Date Vital Result Comment 07/13/2020 1:10pm Body Temperature 96.4 F Height 71.5 inches 5'11.50" Weight 276.00 lb BMI (Body Mass Index) 38.0 kg/m2 Results Description No Information Available Procedures Date Code Description Status 12/11/2020 65152 Therapeutic Procedure, Each 15 M inutes Completed 12/11/2020 03363 Manual Therapy Each 15 Minutes C ompleted 12/11/2020 06801 Hot Or Cold Packs Completed 12/09/2020 67637 Manual Therapy Each 15 Minutes C ompleted 12/09/2020 70770 Therapeutic Procedure, Each 15 M inutes Completed 12/09/2020 81985 Hot Or Cold Packs Completed 12/04/2020 57189 Manual Therapy Each 15 Minutes C ompleted 12/04/2020 67464 Therapeutic Procedure, Each 15 M inutes Completed 12/02/2020 86821 Manual Therapy Each 15 Minutes C ompleted 12/02/2020 79121 Therapeutic Procedure, Each 15 M inutes Completed 11/27/2020 15693 Manual Therapy Each 15 Minutes C ompleted 11/27/2020 86665 Therapeutic Procedure, Each 15 M inutes Completed 11/27/2020 08840 Hot Or Cold Packs Completed 11/25/2020 68098 Manual Therapy Each 15 Minutes C ompleted 11/25/2020 78990 Therapeutic Procedure, Each 15 M inutes Completed 11/17/2020 79619 Re-Eval Of PT Establ ished Plan Of Care 20Mins Face To Face PT/Fam Completed 11/04/2020 62167 Office/Outpatient Established Lo w MDM 20-29 Min Completed 10/08/2020 00740 Manual Therapy Each 15 Minutes C ompleted 10/08/2020 86599 Therapeutic Procedure, Each 15 M inutes Completed 10/01/2020 53215 Manual Therapy Each 15 Minutes C ompleted 10/01/2020 68495 Therapeutic Procedure, Each 15 M inutes Completed 10/01/2020 69635 Hot Or Cold Packs Completed 09/23/2020 35351 Manual Therapy Each 15 Minutes C ompleted 09/23/2020 56736 Therapeutic Procedure, Each 15 M inutes Completed 09/23/2020 14512 Electrical Stimulati on Manual, Each 15 Min, Constant Attendance Completed 09/23/2020 59273 Hot Or Cold Packs Completed 09/21/2020 72233 Office/Outpatient Established Mo d MDM 30-39 Min Completed 09/21/2020 37093 Manual Therapy Each 15 Minutes C ompleted 09/21/2020 83133 Therapeutic Procedure, Each 15 M inutes Completed 09/21/2020 83042 Electrical Stimulati on Manual, Each 15 Min, Constant Attendance Completed 09/21/2020 47348 Hot Or Cold Packs Completed 09/17/2020 38063 Hot Or Cold Packs Completed 09/17/2020 95696 Manual Therapy Each 15 Minutes C ompleted 09/17/2020 37278 Electrical Stimulati on Manual, Each 15 Min, Constant Attendance Completed 09/17/2020 85046 Re-Eval Of PT Establ ished Plan Of Care 20Mins Face To Face PT/Fam Completed 09/17/2020 82984 Therapeutic Procedure, Each 15 M inutes Completed 09/15/2020 65713 Manual Therapy Each 15 Minutes C ompleted 09/15/2020 07732 Therapeutic Procedure, Each 15 M inutes Completed 09/15/2020 56657 Electrical Stimulati on Manual, Each 15 Min, Constant Attendance Completed 09/15/2020 47195 Hot Or Cold Packs Completed 09/11/2020 47369 Manual Therapy Each 15 Minutes C ompleted 09/11/2020 94978 Therapeutic Procedure, Each 15 M inutes Completed 09/11/2020 41520 Electrical Stimulati on Manual, Each 15 Min, Constant Attendance Completed 09/11/2020 64387 Hot Or Cold Packs Completed 09/09/2020 25517 Manual Therapy Each 15 Minutes C ompleted 09/09/2020 25230 Therapeutic Procedure, Each 15 M inutes Completed 09/09/2020 79814 Electrical Stimulati on Manual, Each 15 Min, Constant Attendance Completed 09/09/2020 31652 Hot Or Cold Packs Completed 08/24/2020 60895 Therapeutic Procedure, Each 15 M inutes Completed 08/24/2020 39901 Hot Or Cold Packs Completed 08/24/2020 84574 Electrical Stimulati on Manual, Each 15 Min, Constant Attendance Completed 08/24/2020 81186 Therapeutic Procedure, Each 15 M inutes Completed 08/19/2020 02654 Therapeutic Procedure, Each 15 M inutes Completed 08/19/2020 51462 Electrical Stimulati on Manual, Each 15 Min, Constant Attendance Completed 08/19/2020 61560 Hot Or Cold Packs Completed 08/14/2020 13235 Therapeutic Procedure, Each 15 M inutes Completed 08/14/2020 41835 Electrical Stimulati on Manual, Each 15 Min, Constant Attendance Completed 08/14/2020 44863 Hot Or Cold Packs Completed 08/10/2020 41617 Office/Outpatient Established Lo w MDM 20-29 Min Completed 08/07/2020 38794 Therapeutic Procedure, Each 15 M inutes Completed 08/07/2020 57886 Electrical Stimulati on Manual, Each 15 Min, Constant Attendance Completed 08/07/2020 11301 Hot Or Cold Packs Completed 07/29/2020 64429 Physical Therapy Eval - Low Comp lexity Completed 07/13/2020 27718 Office/Outpatient New Moderate M DM 45-59 Minutes Completed Medical Devices Description No Information Available Encounters Type Date Location Provider Dx Diagnosis Office Visit 11/04/2020 4:30p [place] SARA Cano S39.012D Strain of muscle, fascia [...] back, init Assessments Date Code Description Provider 12/11/2020 S39.012D Strain of muscle, fa scia and tendon of lower back, subsequent encounter Natty Cross, [facility] 12/09/2020 S39.012D Strain of muscle, fa scia and tendon of lower back, subsequent encounter Hiram Mooney P.TAdis 12/04/2020 S39.012D Strain of muscle, fa scia and tendon of lower back, subsequent encounter Hiram Mooney P.T. 12/02/2020 S39.012D Strain of muscle, fa scia and tendon of lower back, subsequent encounter Natty Cross, [facility] 11/27/2020 S39.012D Strain of muscle, fa scia and tendon of lower back, subsequent encounter Natty Cross, [facility] 11/25/2020 S39.012D Strain of muscle, fa scia and tendon of lower back, subsequent encounter aNtty Cross, [facility] 11/17/2020 S39.012D Strain of muscle, fa scia and tendon of lower back, subsequent encounter Natty Cross, [facility] 11/04/2020 S39.012D Strain of muscle, fa scia and tendon of lower back, subsequent encounter SARA Cano 10/08/2020 S39.012D Strain of muscle, fa scia and tendon of lower back, subsequent encounter Natty West. Jonathanpa, [facility] 10/01/2020 S39.012D Strain of muscle, fa scia and tendon of lower back, subsequent encounter Natty M. Vespa, [facility] 09/23/2020 S39.012D Strain of muscle, fa scia and tendon of lower back, subsequent encounter Natty M. Vespa, [facility] 09/21/2020 S39.012D Strain of muscle, fa scia and tendon of lower back, subsequent encounter Natty M. Vespa, [facility] 09/21/2020 S39.012D Strain of muscle, fa scia and tendon of lower back, subsequent encounter Channing Malave MD 09/17/2020 S39.012D Strain of muscle, fa scia and tendon of lower back, subsequent encounter Natty M. Vespa, [facility] 09/15/2020 S39.012D Strain of muscle, fa scia and tendon of lower back, subsequent encounter Natty M. Vespa, [facility] 09/11/2020 S39.012D Strain of muscle, fa scia and tendon of lower back, subsequent encounter Natty M. Vespa, [facility] 09/09/2020 S39.012D Strain of muscle, fa scia and tendon of lower back, subsequent encounter Natty M. Vespa, [facility] 08/24/2020 S39.012D Strain of muscle, fa scia and tendon of lower back, subsequent encounter Hiram Mooney P.T. 08/19/2020 S39.012D Strain of muscle, fa scia and tendon of lower back, subsequent encounter Natty M. Vespa, [facility] 08/14/2020 S39.012D Strain of muscle, fa scia and tendon of lower back, subsequent encounter Natty M. Vespa, [facility] 08/10/2020 S39.012D Strain of muscle, fa scia and tendon of lower back, subsequent encounter Channing Malave MD 08/07/2020 S39.012D Strain of muscle, fa scia and tendon of lower back, subsequent encounter Natty M. Vespa, [facility] 07/29/2020 S39.012D Strain of muscle, fa scia and tendon of lower back, subsequent encounter Natty M. Vespa, [facility] 07/13/2020 S39.012A Strain of muscle, fa scia and tendon of lower back, initial encounter Channing Malave MD Plan of Treatment Future Appointment(s):* 12/22/2020 8:00 am - Hiram Mooney P.T. at Physical Therapy * 12/17/2020 8:00 am - NEGIN Bolanos at Physical Therapy * 12/23/2020 4:00 pm - SARA Cano at [place] Functional Status Description No Information Available Mental Status Description No Information Available Referrals Refer to Dr Reason for Referral Status Appt Date Brianna Malave MD MRI LUMBAR SPINE OK TO [facility] MT AND PER PAULINO OK TO [facility] AT [facility]. PASSED TO JOM[facility]. Created [address] [place] [address] [phone] Brianna Malave MD PT LOW BACK WRITTEN AUTH PASSED TO PT DEPT. Created [address] [place] [address] [phone] Brianna Malave MD PT- LOW BACK OK TO [facility] 2ND SET. TRI AGED PT DEPT. Created [address] [place] [address], [address] [address] [phone] Kian Younger, PA-C PT LOW BACK OK TO [facility] 1ST SET PASSE D TO PT DEPT. Created [address] [place], [place] [id number] [place] [address] [phone]
--- OUTSIDE RECORDS SUMMARY | 2021-03-15 09:53 | CCD | Continuity of Care Document ---
Author Author [facility] Organization Unknown Address [address] [place] [address] Phone [phone] Problems Description No Information Available Social History Type Date Description Comments Sex Unknown Tobacco Use Start: Unknown End: Unknown Patient is a former smoker Allergies, Adverse Reactions, Alerts Description No Known Drug Allergies Medications Active Medications SIG Qnty Indications Ordering Provide r Date [employer] Covid-19 Vaccine 30mcg/0.3ML Suspension Unknown Cyclobenzaprine HCL 10mg Tablets Althea Dahl, [employer] Ibuprofen 600mg Tablets Althea Dahl, [employer] History Medications No Active Medications Unknown - 11/04/2020 Immunizations Description No Information Available Vital Signs Date Vital Result Comment 07/13/2020 1:10pm Body Temperature 96.4 F Height 71.5 inches 5'11.50" Weight 276.00 lb BMI (Body Mass Index) 38.0 kg/m2 Results Description No Information Available Procedures Date Code Description Status 12/23/2020 41708 Office/Outpatient Established Lo w MDM 20-29 Min Completed 12/22/2020 75138 Manual Therapy Each 15 Minutes C ompleted 12/22/2020 47884 Hot Or Cold Packs Completed 12/22/2020 61421 Therapeutic Procedure, Each 15 M inutes Completed 12/17/2020 22478 Re-Eval Of PT Establ ished Plan Of Care 20Mins Face To Face PT/Fam Completed 12/17/2020 40888 Manual Therapy Each 15 Minutes C ompleted 12/17/2020 14921 Therapeutic Procedure, Each 15 M inutes Completed 12/17/2020 01760 Hot Or Cold Packs Completed 12/15/2020 84556 Manual Therapy Each 15 Minutes C ompleted 12/15/2020 50463 Therapeutic Procedure, Each 15 M inutes Completed 12/15/2020 32332 Hot Or Cold Packs Completed 12/11/2020 71462 Manual Therapy Each 15 Minutes C ompleted 12/11/2020 13010 Hot Or Cold Packs Completed 12/11/2020 35042 Therapeutic Procedure, Each 15 M inutes Completed 12/09/2020 06671 Manual Therapy Each 15 Minutes C ompleted 12/09/2020 84816 Therapeutic Procedure, Each 15 M inutes Completed 12/09/2020 78453 Hot Or Cold Packs Completed 12/04/2020 60635 Manual Therapy Each 15 Minutes C ompleted 12/04/2020 74573 Therapeutic Procedure, Each 15 M inutes Completed 12/02/2020 85147 Therapeutic Procedure, Each 15 M inutes Completed 12/02/2020 09479 Manual Therapy Each 15 Minutes C ompleted 11/27/2020 65463 Manual Therapy Each 15 Minutes C ompleted 11/27/2020 61479 Therapeutic Procedure, Each 15 M inutes Completed 11/27/2020 39846 Hot Or Cold Packs Completed 11/25/2020 64636 Manual Therapy Each 15 Minutes C ompleted 11/25/2020 92773 Therapeutic Procedure, Each 15 M inutes Completed 11/17/2020 40863 Re-Eval Of PT Establ ished Plan Of Care 20Mins Face To Face PT/Fam Completed 11/04/2020 26182 Office/Outpatient Established Lo w MDM 20-29 Min Completed 10/08/2020 94061 Manual Therapy Each 15 Minutes C ompleted 10/08/2020 82828 Therapeutic Procedure, Each 15 M inutes Completed 10/01/2020 19757 Manual Therapy Each 15 Minutes C ompleted 10/01/2020 96325 Hot Or Cold Packs Completed 10/01/2020 17023 Therapeutic Procedure, Each 15 M inutes Completed 09/23/2020 57082 Manual Therapy Each 15 Minutes C ompleted 09/23/2020 60951 Therapeutic Procedure, Each 15 M inutes Completed 09/23/2020 23552 Electrical Stimulati on Manual, Each 15 Min, Constant Attendance Completed 09/23/2020 70523 Hot Or Cold Packs Completed 09/21/2020 42925 Office/Outpatient Established Mo d MDM 30-39 Min Completed 09/21/2020 05621 Hot Or Cold Packs Completed 09/21/2020 33481 Electrical Stimulati on Manual, Each 15 Min, Constant Attendance Completed 09/21/2020 09413 Manual Therapy Each 15 Minutes C ompleted 09/21/2020 57745 Therapeutic Procedure, Each 15 M inutes Completed 09/17/2020 06908 Re-Eval Of PT Establ ished Plan Of Care 20Mins Face To Face PT/Fam Completed 09/17/2020 65199 Manual Therapy Each 15 Minutes C ompleted 09/17/2020 13612 Therapeutic Procedure, Each 15 M inutes Completed 09/17/2020 57617 Electrical Stimulati on Manual, Each 15 Min, Constant Attendance Completed 09/17/2020 02515 Hot Or Cold Packs Completed 09/15/2020 53175 Manual Therapy Each 15 Minutes C ompleted 09/15/2020 18467 Therapeutic Procedure, Each 15 M inutes Completed 09/15/2020 50463 Electrical Stimulati on Manual, Each 15 Min, Constant Attendance Completed 09/15/2020 07928 Hot Or Cold Packs Completed 09/11/2020 34504 Manual Therapy Each 15 Minutes C ompleted 09/11/2020 67717 Therapeutic Procedure, Each 15 M inutes Completed 09/11/2020 06667 Electrical Stimulati on Manual, Each 15 Min, Constant Attendance Completed 09/11/2020 14691 Hot Or Cold Packs Completed 09/09/2020 36469 Hot Or Cold Packs Completed 09/09/2020 61351 Electrical Stimulati on Manual, Each 15 Min, Constant Attendance Completed 09/09/2020 75950 Manual Therapy Each 15 Minutes C ompleted 09/09/2020 69972 Therapeutic Procedure, Each 15 M inutes Completed 08/24/2020 46152 Therapeutic Procedure, Each 15 M inutes Completed 08/24/2020 39130 Therapeutic Procedure, Each 15 M inutes Completed 08/24/2020 31414 Electrical Stimulati on Manual, Each 15 Min, Constant Attendance Completed 08/24/2020 52461 Hot Or Cold Packs Completed 08/19/2020 76050 Therapeutic Procedure, Each 15 M inutes Completed 08/19/2020 38206 Electrical Stimulati on Manual, Each 15 Min, Constant Attendance Completed 08/19/2020 91801 Hot Or Cold Packs Completed 08/14/2020 47989 Therapeutic Procedure, Each 15 M inutes Completed 08/14/2020 50316 Hot Or Cold Packs Completed 08/14/2020 08283 Electrical Stimulati on Manual, Each 15 Min, Constant Attendance Completed 08/10/2020 32466 Office/Outpatient Established Lo w MDM 20-29 Min Completed 08/07/2020 99717 Therapeutic Procedure, Each 15 M inutes Completed 08/07/2020 02230 Electrical Stimulati on Manual, Each 15 Min, Constant Attendance Completed 08/07/2020 01794 Hot Or Cold Packs Completed 07/29/2020 10531 Physical Therapy Eval - Low Comp lexity Completed 07/13/2020 22963 Office/Outpatient New Moderate M DM 45-59 Minutes Completed Medical Devices Description No Information Available Encounters Type Date Location Provider Dx Diagnosis Office Visit 12/23/2020 4:00p [place] SARA Cano S39.012D Strain of muscle, fascia and tendon of lower back, subs M51.26 Other intervertebral disc di splacement, lumbar region M51.27 Other intervertebral disc di splacement, lumbosacral region Office Visit 11/04/2020 4:30p [place] SARA Cano S39.012D Strain of muscle, fascia [...] lower back, subsequent encounter Natty M. Jonathanpa, [facility] 12/15/2020 S39.012D Strain of muscle, fa scia and tendon of lower back, subsequent encounter Natty M. Vespa, [facility] 12/11/2020 S39.012D Strain of muscle, fa scia and tendon of lower back, subsequent encounter Natty M. Vespa, [facility] 12/09/2020 S39.012D Strain of muscle, fa scia and tendon of lower back, subsequent encounter Hiram Mooney P.T. 12/04/2020 S39.012D Strain of muscle, fa scia and tendon of lower back, subsequent encounter Hiram Mooney P.T. 12/02/2020 S39.012D Strain of muscle, fa scia and tendon of lower back, subsequent encounter Natty M. Vespa, [facility] 11/27/2020 S39.012D Strain of muscle, fa scia and tendon of lower back, subsequent encounter Natty M. Vespa, [facility] 11/25/2020 S39.012D Strain of muscle, fa scia and tendon of lower back, subsequent encounter Natty M. Vespa, [facility] 11/17/2020 S39.012D Strain of muscle, fa scia and tendon of lower back, subsequent encounter Natty M. Vespa, [facility] 11/04/2020 S39.012D Strain of muscle, fa scia and tendon of lower back, subsequent encounter SARA Cano 10/08/2020 S39.012D Strain of muscle, fa scia and tendon of lower back, subsequent encounter Natty M. Vespa, [facility] 10/01/2020 S39.012D Strain of muscle, fa scia and tendon of lower back, subsequent encounter Natty M. Jonathanpa, [facility] 09/23/2020 S39.012D Strain of muscle, fa scia and tendon of lower back, subsequent encounter Natty M. Vespa, [facility] 09/21/2020 S39.012D Strain of muscle, fa scia and tendon of lower back, subsequent encounter Natty M. Vespa, [facility] 09/21/2020 S39.012D Strain of muscle, fa scia and tendon of lower back, subsequent encounter Channing Malave MD 09/17/2020 S39.012D Strain of muscle, fa scia and tendon of lower back, subsequent encounter Natty M. Vespa, [facility] 09/15/2020 S39.012D Strain of muscle, fa scia and tendon of lower back, subsequent encounter Natty M. Vespa, [facility] 09/11/2020 S39.012D Strain of muscle, fa scia and tendon of lower back, subsequent encounter Natty M. Vespa, [facility] 09/09/2020 S39.012D Strain of muscle, fa scia and tendon of lower back, subsequent encounter Natty M. Vespa, [facility] 08/24/2020 S39.012D Strain of muscle, fa scia and tendon of lower back, subsequent encounter Hiram Mooney P.T. 08/19/2020 S39.012D Strain of muscle, fa scia and tendon of lower back, subsequent encounter Natty M. Vespa, [facility] 08/14/2020 S39.012D Strain of muscle, fa scia and tendon of lower back, subsequent encounter Ntaty M. Vespa, [facility] 08/10/2020 S39.012D Strain of muscle, fa scia and tendon of lower back, subsequent encounter Channing Malave MD 08/07/2020 S39.012D Strain of muscle, fa scia and tendon of lower back, subsequent encounter Natty M. Vespa, [facility] 07/29/2020 S39.012D Strain of muscle, fa scia and tendon of lower back, subsequent encounter Natty M. Vespa, [facility] 07/13/2020 S39.012A Strain of muscle, fa scia and tendon of lower back, initial encounter Channing Malave MD Plan of Treatment Future Appointment(s):* 01/28/2021 1:00 pm - SARA Cano at [place] 12/23/2020 - SARA Cano* S39.012D Strain of [...] MRI LUMBAR SPINE OK TO [facility] P ER MTGS AND PER PAULINO OK TO [facility] AT [facility] FEE [facility]. PASSED TO [facility]. Created [address] [place] [address] [phone] Brianna Malave MD PT LOW BACK WRITTEN AUTH PASSED TO PT DEPT. Created [address] [place] [address] [phone] Brianna Malave MD PT- LOW BACK OK TO [facility] 2ND SET. TRI AGED PT DEPT. Created [address] [place] [address] [phone] Kian Younger, PA-C PT LOW BACK OK TO [facility] 1ST SET PASSE D TO PT DEPT. Created [facility] [place] [address] [phone]
--- OUTSIDE RECORDS SUMMARY | 2021-03-15 09:53 | CCD | Continuity of Care Document ---
Author Author Darius [facility] Organization Unknown Address [address] [place] [address] Phone [phone] Problems Description No Information Available Social History Type Date Description Comments Sex Unknown Tobacco Use Start: Unknown End: Unknown Patient is a former smoker Allergies, Adverse Reactions, Alerts Description No Known Drug Allergies Medications Active Medications SIG Qnty Indications Ordering Provide r Date [employer] Covid-19 Vaccine 30mcg/0.3ML Suspension Unknown Cyclobenzaprine HCL 10mg Tablets Althea Dahl, DIRECTOR [employer] SOFTWARE [employer]ELOP[employer] Ibuprofen 600mg Tablets Althea Dahl, [employer] History Medications No Active Medications Unknown - 11/04/2020 Immunizations Description No Information Available Vital Signs Date Vital Result Comment 07/13/2020 1:10pm Body Temperature 96.4 F Height 71.5 inches 5'11.50" Weight 276.00 lb BMI (Body Mass Index) 38.0 kg/m2 Results Description No Information Available Procedures Date Code Description Status 12/15/2020 04205 Therapeutic Procedure, Each 15 M inutes Completed 12/15/2020 49963 Hot Or Cold Packs Completed 12/15/2020 33307 Manual Therapy Each 15 Minutes C ompleted 12/11/2020 18445 Manual Therapy Each 15 Minutes C ompleted 12/11/2020 24482 Therapeutic Procedure, Each 15 M inutes Completed 12/11/2020 68800 Hot Or Cold Packs Completed 12/09/2020 05107 Manual Therapy Each 15 Minutes C ompleted 12/09/2020 99851 Therapeutic Procedure, Each 15 M inutes Completed 12/09/2020 93959 Hot Or Cold Packs Completed 12/04/2020 72087 Manual Therapy Each 15 Minutes C ompleted 12/04/2020 85713 Therapeutic Procedure, Each 15 M inutes Completed 12/02/2020 94510 Manual Therapy Each 15 Minutes C ompleted 12/02/2020 50606 Therapeutic Procedure, Each 15 M inutes Completed 11/27/2020 35709 Hot Or Cold Packs Completed 11/27/2020 11270 Therapeutic Procedure, Each 15 M inutes Completed 11/27/2020 82410 Manual Therapy Each 15 Minutes C ompleted 11/25/2020 19455 Manual Therapy Each 15 Minutes C ompleted 11/25/2020 55520 Therapeutic Procedure, Each 15 M inutes Completed 11/17/2020 97086 Re-Eval Of PT Establ ished Plan Of Care 20Mins Face To Face PT/Fam Completed 11/04/2020 81581 Office/Outpatient Established Lo w MDM 20-29 Min Completed 10/08/2020 79477 Manual Therapy Each 15 Minutes C ompleted 10/08/2020 30608 Therapeutic Procedure, Each 15 M inutes Completed 10/01/2020 89304 Manual Therapy Each 15 Minutes C ompleted 10/01/2020 77287 Therapeutic Procedure, Each 15 M inutes Completed 10/01/2020 71829 Hot Or Cold Packs Completed 09/23/2020 58212 Manual Therapy Each 15 Minutes C ompleted 09/23/2020 45860 Therapeutic Procedure, Each 15 M inutes Completed 09/23/2020 45464 Electrical Stimulati on Manual, Each 15 Min, Constant Attendance Completed 09/23/2020 50373 Hot Or Cold Packs Completed 09/21/2020 67492 Electrical Stimulati on Manual, Each 15 Min, Constant Attendance Completed 09/21/2020 74971 Hot Or Cold Packs Completed 09/21/2020 22211 Manual Therapy Each 15 Minutes C ompleted 09/21/2020 08699 Therapeutic Procedure, Each 15 M inutes Completed 09/21/2020 63676 Office/Outpatient Established Mo d MDM 30-39 Min Completed 09/17/2020 83076 Re-Eval Of PT Establ ished Plan Of Care 20Mins Face To Face PT/Fam Completed 09/17/2020 40154 Manual Therapy Each 15 Minutes C ompleted 09/17/2020 24352 Therapeutic Procedure, Each 15 M inutes Completed 09/17/2020 44536 Electrical Stimulati on Manual, Each 15 Min, Constant Attendance Completed 09/17/2020 99768 Hot Or Cold Packs Completed 09/15/2020 82179 Manual Therapy Each 15 Minutes C ompleted 09/15/2020 74576 Therapeutic Procedure, Each 15 M inutes Completed 09/15/2020 34953 Electrical Stimulati on Manual, Each 15 Min, Constant Attendance Completed 09/15/2020 93241 Hot Or Cold Packs Completed 09/11/2020 07634 Manual Therapy Each 15 Minutes C ompleted 09/11/2020 33097 Therapeutic Procedure, Each 15 M inutes Completed 09/11/2020 83164 Electrical Stimulati on Manual, Each 15 Min, Constant Attendance Completed 09/11/2020 23267 Hot Or Cold Packs Completed 09/09/2020 99578 Hot Or Cold Packs Completed 09/09/2020 87909 Electrical Stimulati on Manual, Each 15 Min, Constant Attendance Completed 09/09/2020 10789 Manual Therapy Each 15 Minutes C ompleted 09/09/2020 24276 Therapeutic Procedure, Each 15 M inutes Completed 08/24/2020 85835 Therapeutic Procedure, Each 15 M inutes Completed 08/24/2020 15900 Therapeutic Procedure, Each 15 M inutes Completed 08/24/2020 85843 Electrical Stimulati on Manual, Each 15 Min, Constant Attendance Completed 08/24/2020 84729 Hot Or Cold Packs Completed 08/19/2020 50209 Therapeutic Procedure, Each 15 M inutes Completed 08/19/2020 70704 Electrical Stimulati on Manual, Each 15 Min, Constant Attendance Completed 08/19/2020 92279 Hot Or Cold Packs Completed 08/14/2020 65135 Therapeutic Procedure, Each 15 M inutes Completed 08/14/2020 87060 Hot Or Cold Packs Completed 08/14/2020 33938 Electrical Stimulati on Manual, Each 15 Min, Constant Attendance Completed 08/10/2020 64291 Office/Outpatient Established Lo w MDM 20-29 Min Completed 08/07/2020 88693 Therapeutic Procedure, Each 15 M inutes Completed 08/07/2020 72647 Electrical Stimulati on Manual, Each 15 Min, Constant Attendance Completed 08/07/2020 30862 Hot Or Cold Packs Completed 07/29/2020 36720 Physical Therapy Eval - Low Comp lexity Completed 07/13/2020 07640 Office/Outpatient New Moderate M DM 45-59 Minutes Completed Medical Devices Description No Information Available Encounters Type Date Location Provider Dx Diagnosis Office Visit 11/04/2020 4:30p [place] MARISABEL Cano S39.012D Strain of muscle, fascia and tendon of lower back, subs Office Visit 09/21/2020 1:00p [place] Malave MD S3 9.012D Strain of muscle, [...] of lower back, subsequent encounter Natty Cross, [facility] 12/11/2020 S39.012D Strain of muscle, fa scia and tendon of lower back, subsequent encounter Natty Cross, [facility] 12/09/2020 S39.012D Strain of muscle, fa scia and tendon of lower back, subsequent encounter Hiram Mooney P.T. 12/04/2020 S39.012D Strain of muscle, fa scia and tendon of lower back, subsequent encounter Hiram Mooney P.T. 12/02/2020 S39.012D Strain of muscle, fa scia and tendon of lower back, subsequent encounter Natty Cross, [facility] 11/27/2020 S39.012D Strain of muscle, fa scia and tendon of lower back, subsequent encounter Natty Cross, [facility] 11/25/2020 S39.012D Strain of muscle, fa scia and tendon of lower back, subsequent encounter Natty Cross, [facility] 11/17/2020 S39.012D Strain of muscle, fa scia and tendon of lower back, subsequent encounter Natty M. Jonathanpa, [facility] 11/04/2020 S39.012D Strain of muscle, fa scia and tendon of lower back, subsequent encounter MARISABEL Cano 10/08/2020 S39.012D Strain of muscle, fa scia and tendon of lower back, subsequent encounter Natty M. Vespa, [facility] 10/01/2020 S39.012D Strain of muscle, fa scia and tendon of lower back, subsequent encounter Natty M. Vespa, [facility] 09/23/2020 S39.012D Strain of muscle, fa scia and tendon of lower back, subsequent encounter Natty M. Vespa, [facility] 09/21/2020 S39.012D Strain of muscle, fa scia and tendon of lower back, subsequent encounter Natty M. Vespa, [facility] 09/21/2020 S39.012D Strain of muscle, fa scia and tendon of lower back, subsequent encounter Channing Malave MD 09/17/2020 S39.012D Strain of muscle, fa scia and tendon of lower back, subsequent encounter Natty M. Vespa, [facility] 09/15/2020 S39.012D Strain of muscle, fa scia and tendon of lower back, subsequent encounter Natty M. Vespa, [facility] 09/11/2020 S39.012D Strain of muscle, fa scia and tendon of lower back, subsequent encounter Natty M. Vespa, [facility] 09/09/2020 S39.012D Strain of muscle, fa scia and tendon of lower back, subsequent encounter Natty M. Vespa, [facility] 08/24/2020 S39.012D Strain of muscle, fa scia and tendon of lower back, subsequent encounter Hiram Mooney P.T. 08/19/2020 S39.012D Strain of muscle, fa scia and tendon of lower back, subsequent encounter Natty M. Vespa, [facility] 08/14/2020 S39.012D Strain of muscle, fa scia and tendon of lower back, subsequent encounter Natty M. Vespa, [facility] 08/10/2020 S39.012D Strain of muscle, [...] 12/23/2020 4:00 pm - MARISABEL Cano at [place] Functional Status Description No Information Available Mental Status Description No Information Available Referrals Refer to Dr Reason for Referral Status Appt Date Brianna Malave MD MRI LUMBAR SPINE OK TO [facility] P ER MTGS AND PER PAULINO OK TO [facility] FEE [facility]. PASSED TO [facility]. Created [address] [place] [address] [phone] Brianna Malave MD PT LOW BACK WRITTEN AUTH PASSED TO PT DEPT. Created [address] [place] [address] [phone] Brianna Malave MD PT- LOW BACK OK TO [facility] 2ND SET. TRI AGED PT DEPT. Created [facility] [address] [id number] [phone] Kian Younger, PA-C PT LOW BACK OK TO [facility] 1ST SET PASSE D TO PT DEPT. [place] [address] [phone]
--- OUTSIDE RECORDS SUMMARY | 2021-03-15 09:53 | CCD | Continuity of Care Document ---
Author Author Darius MOONEY P.T. Organization Unknown Address [address] [place] [address] [address] [place] [address] Phone [phone] Problems Description No Information Available Social History Type Date Description Comments Sex Unknown Tobacco Use Start: Unknown End: Unknown Patient is a former smoker Allergies, Adverse Reactions, Alerts Description No Known Drug Allergies Medications Active Medications SIG Qnty Indications Ordering Provide r Date Pfizer-[employer]ion[employer] Covid-19 Vaccine 30mcg/0.3ML Suspension Unknown Cyclobenzaprine HCL 10mg Tablets Althea Dahl, COMPLIANCE INTERN Ibuprofen 600mg Tablets Althea Dahl, COMPLIANCE INTERN History Medications No Active Medications Unknown - 11/04/2020 Immunizations Description No Information Available Vital Signs Date Vital Result Comment 07/13/2020 1:10pm Body Temperature 96.4 F Height 71.5 inches 5'11.50" Weight 276.00 lb BMI (Body Mass Index) 38.0 kg/m2 Results Description No Information Available Procedures Date Code Description Status 12/17/2020 44488 Manual Therapy Each 15 Minutes C ompleted 12/17/2020 01213 Re-Eval Of PT Establ ished Plan Of Care 20Mins Face To Face PT/Fam Completed 12/17/2020 81005 Hot Or Cold Packs Completed 12/17/2020 08251 Therapeutic Procedure, Each 15 M inutes Completed 12/15/2020 14207 Manual Therapy Each 15 Minutes C ompleted 12/15/2020 92071 Therapeutic Procedure, Each 15 M inutes Completed 12/15/2020 88601 Hot Or Cold Packs Completed 12/11/2020 89554 Manual Therapy Each 15 Minutes C ompleted 12/11/2020 46790 Therapeutic Procedure, Each 15 M inutes Completed 12/11/2020 71583 Hot Or Cold Packs Completed 12/09/2020 28187 Manual Therapy Each 15 Minutes C ompleted 12/09/2020 56355 Therapeutic Procedure, Each 15 M inutes Completed 12/09/2020 98015 Hot Or Cold Packs Completed 12/04/2020 61147 Manual Therapy Each 15 Minutes C ompleted 12/04/2020 82788 Therapeutic Procedure, Each 15 M inutes Completed 12/02/2020 67394 Manual Therapy Each 15 Minutes C ompleted 12/02/2020 15938 Therapeutic Procedure, Each 15 M inutes Completed 11/27/2020 79923 Hot Or Cold Packs Completed 11/27/2020 75771 Manual Therapy Each 15 Minutes C ompleted 11/27/2020 43882 Therapeutic Procedure, Each 15 M inutes Completed 11/25/2020 84163 Manual Therapy Each 15 Minutes C ompleted 11/25/2020 29970 Therapeutic Procedure, Each 15 M inutes Completed 11/17/2020 22763 Re-Eval Of PT Establ ished Plan Of Care 20Mins Face To Face PT/Fam Completed 11/04/2020 78321 Office/Outpatient Established Lo w MDM 20-29 Min Completed 10/08/2020 12936 Manual Therapy Each 15 Minutes C ompleted 10/08/2020 26731 Therapeutic Procedure, Each 15 M inutes Completed 10/01/2020 67183 Therapeutic Procedure, Each 15 M inutes Completed 10/01/2020 95867 Hot Or Cold Packs Completed 10/01/2020 55510 Manual Therapy Each 15 Minutes C ompleted 09/23/2020 82919 Manual Therapy Each 15 Minutes C ompleted 09/23/2020 07928 Therapeutic Procedure, Each 15 M inutes Completed 09/23/2020 02257 Electrical Stimulati on Manual, Each 15 Min, Constant Attendance Completed 09/23/2020 21606 Hot Or Cold Packs Completed 09/21/2020 01747 Hot Or Cold Packs Completed 09/21/2020 22606 Electrical Stimulati on Manual, Each 15 Min, Constant Attendance Completed 09/21/2020 35885 Therapeutic Procedure, Each 15 M inutes Completed 09/21/2020 35462 Office/Outpatient Established Mo d MDM 30-39 Min Completed 09/21/2020 93495 Manual Therapy Each 15 Minutes C ompleted 09/17/2020 10935 Re-Eval Of PT Establ ished Plan Of Care 20Mins Face To Face PT/Fam Completed 09/17/2020 39595 Manual Therapy Each 15 Minutes C ompleted 09/17/2020 98305 Therapeutic Procedure, Each 15 M inutes Completed 09/17/2020 77880 Electrical Stimulati on Manual, Each 15 Min, Constant Attendance Completed 09/17/2020 46774 Hot Or Cold Packs Completed 09/15/2020 79156 Manual Therapy Each 15 Minutes C ompleted 09/15/2020 95321 Therapeutic Procedure, Each 15 M inutes Completed 09/15/2020 11791 Electrical Stimulati on Manual, Each 15 Min, Constant Attendance Completed 09/15/2020 11491 Hot Or Cold Packs Completed 09/11/2020 69658 Manual Therapy Each 15 Minutes C ompleted 09/11/2020 07920 Therapeutic Procedure, Each 15 M inutes Completed 09/11/2020 21167 Electrical Stimulati on Manual, Each 15 Min, Constant Attendance Completed 09/11/2020 36482 Hot Or Cold Packs Completed 09/09/2020 46347 Hot Or Cold Packs Completed 09/09/2020 04366 Electrical Stimulati on Manual, Each 15 Min, Constant Attendance Completed 09/09/2020 35040 Manual Therapy Each 15 Minutes C ompleted 09/09/2020 32920 Therapeutic Procedure, Each 15 M inutes Completed 08/24/2020 03245 Therapeutic Procedure, Each 15 M inutes Completed 08/24/2020 09536 Therapeutic Procedure, Each 15 M inutes Completed 08/24/2020 07418 Electrical Stimulati on Manual, Each 15 Min, Constant Attendance Completed 08/24/2020 13266 Hot Or Cold Packs Completed 08/19/2020 54693 Therapeutic Procedure, Each 15 M inutes Completed 08/19/2020 07919 Electrical Stimulati on Manual, Each 15 Min, Constant Attendance Completed 08/19/2020 79584 Hot Or Cold Packs Completed 08/14/2020 67065 Therapeutic Procedure, Each 15 M inutes Completed 08/14/2020 43992 Hot Or Cold Packs Completed 08/14/2020 14642 Electrical Stimulati on Manual, Each 15 Min, Constant Attendance Completed 08/10/2020 01758 Office/Outpatient Established Lo w MDM 20-29 Min Completed 08/07/2020 40970 Therapeutic Procedure, Each 15 M inutes Completed 08/07/2020 89893 Electrical Stimulati on Manual, Each 15 Min, Constant Attendance Completed 08/07/2020 17035 Hot Or Cold Packs Completed 07/29/2020 46174 Physical Therapy Eval - Low Comp lexity Completed 07/13/2020 07508 Office/Outpatient New Moderate M DM 45-59 Minutes Completed Medical Devices Description No Information Available Encounters Type Date Location Provider Dx Diagnosis Office Visit 11/04/2020 4:30p [place] SARA Cano S39.012D Strain of muscle, fascia [...] back, init Assessments Date Code Description Provider 12/17/2020 S39.012D Strain of muscle, fa scia and tendon of lower back, subsequent encounter Natty Cross, [facility] 12/15/2020 S39.012D Strain of muscle, fa scia and tendon of lower back, subsequent encounter Natty Cross, [facility] 12/11/2020 S39.012D Strain of muscle, fa scia and tendon of lower back, subsequent encounter Natty Cross, [facility]SP[facility] 12/09/2020 S39.012D Strain of muscle, fa scia and tendon of lower back, subsequent encounter Hiram Mooney P.TAdis 12/04/2020 S39.012D Strain of muscle, fa scia and tendon of lower back, subsequent encounter Hiram Mooney P.T. 12/02/2020 S39.012D Strain of muscle, fa scia and tendon of lower back, subsequent encounter Natty M. Jonathanpa, [facility] 11/27/2020 S39.012D Strain of muscle, fa scia and tendon of lower back, subsequent encounter Natty M. Vespa, [facility] 11/25/2020 S39.012D Strain of muscle, fa scia and tendon of lower back, subsequent encounter Natty M. Vespa, [facility] 11/17/2020 S39.012D Strain of muscle, fa scia and tendon of lower back, subsequent encounter Natty M. Vespa, [facility] 11/04/2020 S39.012D Strain [...] of lower back, subsequent encounter Natty Cross, [facility] 08/14/2020 S39.012D Strain of muscle, fa scia and tendon of lower back, subsequent encounter Natty Cross, [facility] 08/10/2020 S39.012D Strain of muscle, fa scia and tendon of lower back, subsequent encounter Channing Malave MD 08/07/2020 S39.012D Strain of muscle, fa scia and tendon of lower back, subsequent encounter Natty Cross, [facility] 07/29/2020 S39.012D Strain of muscle, fa scia and tendon of lower back, subsequent encounter Natty Cross, [facility] 07/13/2020 S39.012A Strain of muscle, fa scia and tendon of lower back, initial encounter Channing Malave MD Plan of Treatment Future Appointment(s):* 12/23/2020 4:00 pm - SARA Cano at [place] Functional Status Description No Information Available Mental Status Description No Information Available Referrals Refer to Dr Reason for Referral Status Appt Date Brianna Malave MD MRI LUMBAR SPINE OK TO [facility] ER MTGS AND PER PAULINO OK TO [facility] FEE [facility]. PASSED TO [facility]. Created [address] [place] [address] [phone] Brianna Malave MD PT LOW BACK WRITTEN AUTH PASSED TO PT DEPT. Created [address] [place] [phone] [phone] Brianna Malave MD PT- LOW BACK OK TO [facility] 2ND SET. TRI AGED PT DEPT. Created [facility] [address] [address] [phone] Kian Younger, PA-C PT LOW BACK OK TO [facility] 1ST SET PASSE D TO PT DEPT. Created [address] [place] [address] [address] [place] [address] [phone]
--- OUTSIDE RECORDS SUMMARY | 2021-03-15 09:53 | CCD | Continuity of Care Document ---
Author Author Darius [facility] Organization Unknown Address [address] [place] [address] Phone [phone] Problems Description No Information Available Social History Type Date Description Comments Sex Unknown Tobacco Use Start: Unknown End: Unknown Patient is a former smoker Allergies, Adverse Reactions, Alerts Description No Known Drug Allergies Medications Active Medications SIG Qnty Indications Ordering Provide r Date Pfizer-[employer] Covid-19 Vaccine 30mcg/0.3ML Suspension Unknown Cyclobenzaprine HCL 10mg Tablets Althea Dahl, TERMITE CONTROL SERVICE REPRESENTATIVE Ibuprofen 600mg Tablets Althea Dahl, TERMITE CONTROL SERVICE REPRESENTATIVE History Medications No Active Medications Unknown - 11/04/2020 Immunizations Description No Information Available Vital Signs Date Vital Result Comment 07/13/2020 1:10pm Body Temperature 96.4 F Height 71.5 inches 5'11.50" Weight 276.00 lb BMI (Body Mass Index) 38.0 kg/m2 Results Description No Information Available Procedures Date Code Description Status 12/15/2020 75485 Therapeutic Procedure, Each 15 M inutes Completed 12/15/2020 05917 Hot Or Cold Packs Completed 12/15/2020 01720 Manual Therapy Each 15 Minutes C ompleted 12/11/2020 80770 Manual Therapy Each 15 Minutes C ompleted 12/11/2020 13040 Therapeutic Procedure, Each 15 M inutes Completed 12/11/2020 47602 Hot Or Cold Packs Completed 12/09/2020 23492 Manual Therapy Each 15 Minutes C ompleted 12/09/2020 42432 Therapeutic Procedure, Each 15 M inutes Completed 12/09/2020 56232 Hot Or Cold Packs Completed 12/04/2020 78866 Manual Therapy Each 15 Minutes C ompleted 12/04/2020 34322 Therapeutic Procedure, Each 15 M inutes Completed 12/02/2020 87334 Manual Therapy Each 15 Minutes C ompleted 12/02/2020 08371 Therapeutic Procedure, Each 15 M inutes Completed 11/27/2020 84463 Hot Or Cold Packs Completed 11/27/2020 92698 Therapeutic Procedure, Each 15 M inutes Completed 11/27/2020 02514 Manual Therapy Each 15 Minutes C ompleted 11/25/2020 41954 Manual Therapy Each 15 Minutes C ompleted 11/25/2020 04274 Therapeutic Procedure, Each 15 M inutes Completed 11/17/2020 26790 Re-Eval Of PT Establ ished Plan Of Care 20Mins Face To Face PT/Fam Completed 11/04/2020 48497 Office/Outpatient Established Lo w MDM 20-29 Min Completed 10/08/2020 46705 Manual Therapy Each 15 Minutes C ompleted 10/08/2020 97982 Therapeutic Procedure, Each 15 M inutes Completed 10/01/2020 54877 Manual Therapy Each 15 Minutes C ompleted 10/01/2020 84385 Therapeutic Procedure, Each 15 M inutes Completed 10/01/2020 90009 Hot Or Cold Packs Completed 09/23/2020 41833 Manual Therapy Each 15 Minutes C ompleted 09/23/2020 67894 Therapeutic Procedure, Each 15 M inutes Completed 09/23/2020 65669 Electrical Stimulati on Manual, Each 15 Min, Constant Attendance Completed 09/23/2020 56166 Hot Or Cold Packs Completed 09/21/2020 35654 Electrical Stimulati on Manual, Each 15 Min, Constant Attendance Completed 09/21/2020 32293 Hot Or Cold Packs Completed 09/21/2020 60959 Manual Therapy Each 15 Minutes C ompleted 09/21/2020 61879 Therapeutic Procedure, Each 15 M inutes Completed 09/21/2020 26412 Office/Outpatient Established Mo d MDM 30-39 Min Completed 09/17/2020 52533 Re-Eval Of PT Establ ished Plan Of Care 20Mins Face To Face PT/Fam Completed 09/17/2020 80218 Manual Therapy Each 15 Minutes C ompleted 09/17/2020 92358 Therapeutic Procedure, Each 15 M inutes Completed 09/17/2020 04580 Electrical Stimulati on Manual, Each 15 Min, Constant Attendance Completed 09/17/2020 86129 Hot Or Cold Packs Completed 09/15/2020 91180 Manual Therapy Each 15 Minutes C ompleted 09/15/2020 82491 Therapeutic Procedure, Each 15 M inutes Completed 09/15/2020 92901 Electrical Stimulati on Manual, Each 15 Min, Constant Attendance Completed 09/15/2020 28204 Hot Or Cold Packs Completed 09/11/2020 31185 Manual Therapy Each 15 Minutes C ompleted 09/11/2020 67039 Therapeutic Procedure, Each 15 M inutes Completed 09/11/2020 70529 Electrical Stimulati on Manual, Each 15 Min, Constant Attendance Completed 09/11/2020 56189 Hot Or Cold Packs Completed 09/09/2020 57392 Hot Or Cold Packs Completed 09/09/2020 84496 Electrical Stimulati on Manual, Each 15 Min, Constant Attendance Completed 09/09/2020 25920 Manual Therapy Each 15 Minutes C ompleted 09/09/2020 67393 Therapeutic Procedure, Each 15 M inutes Completed 08/24/2020 23534 Therapeutic Procedure, Each 15 M inutes Completed 08/24/2020 99971 Therapeutic Procedure, Each 15 M inutes Completed 08/24/2020 61560 Electrical Stimulati on Manual, Each 15 Min, Constant Attendance Completed 08/24/2020 69123 Hot Or Cold Packs Completed 08/19/2020 82891 Therapeutic Procedure, Each 15 M inutes Completed 08/19/2020 62609 Electrical Stimulati on Manual, Each 15 Min, Constant Attendance Completed 08/19/2020 78607 Hot Or Cold Packs Completed 08/14/2020 71546 Therapeutic Procedure, Each 15 M inutes Completed 08/14/2020 67833 Hot Or Cold Packs Completed 08/14/2020 20312 Electrical Stimulati on Manual, Each 15 Min, Constant Attendance Completed 08/10/2020 50615 Office/Outpatient Established Lo w MDM 20-29 Min Completed 08/07/2020 87846 Therapeutic Procedure, Each 15 M inutes Completed 08/07/2020 23188 Electrical Stimulati on Manual, Each 15 Min, Constant Attendance Completed 08/07/2020 04768 Hot Or Cold Packs Completed 07/29/2020 33435 Physical Therapy Eval - Low Comp lexity Completed 07/13/2020 91869 Office/Outpatient New Moderate M DM 45-59 Minutes Completed Medical Devices Description No Information Available Encounters Type Date Location Provider Dx Diagnosis Office Visit 11/04/2020 4:30p [place] MARISABEL Cano S39.012D Strain of muscle, fascia and tendon of lower back, subs Office Visit 09/21/2020 1:00p [place] Malave MD S3 9.012D Strain of muscle, [...] of lower back, subsequent encounter Natty Cross, [facility] 12/11/2020 S39.012D Strain of muscle, fa scia and tendon of lower back, subsequent encounter Natty Cross, [facility] 12/09/2020 S39.012D Strain of muscle, fa scia and tendon of lower back, subsequent encounter Hiram Mooney P.T. 12/04/2020 S39.012D Strain of muscle, fa scia and tendon of lower back, subsequent encounter Hiram Mooney P.T. 12/02/2020 S39.012D Strain of muscle, fa scia and tendon of lower back, subsequent encounter Natty Cross, [facility] 11/27/2020 S39.012D Strain of muscle, fa scia and tendon of lower back, subsequent encounter Natty Cross, [facility] 11/25/2020 S39.012D Strain of muscle, fa scia and tendon of lower back, subsequent encounter Natty Cross, [facility] 11/17/2020 S39.012D Strain of muscle, fa scia and tendon of lower back, subsequent encounter Natty M. Jonathanpa, [facility] 11/04/2020 S39.012D Strain of muscle, fa scia and tendon of lower back, subsequent encounter MARISABEL Cano 10/08/2020 S39.012D Strain of muscle, fa scia and tendon of lower back, subsequent encounter Natty M. Vespa, [facility] 10/01/2020 S39.012D Strain of muscle, fa scia and tendon of lower back, subsequent encounter Natty M. Vespa, [facility] 09/23/2020 S39.012D Strain of muscle, fa scia and tendon of lower back, subsequent encounter Natty M. Vespa, [facility] 09/21/2020 S39.012D Strain of muscle, fa scia and tendon of lower back, subsequent encounter Natty M. Vespa, [facility] 09/21/2020 S39.012D Strain of muscle, fa scia and tendon of lower back, subsequent encounter Channing Malave MD 09/17/2020 S39.012D Strain of muscle, fa scia and tendon of lower back, subsequent encounter Natty M. Vespa, [facility] 09/15/2020 S39.012D Strain of muscle, fa scia and tendon of lower back, subsequent encounter Natty M. Vespa, [facility] 09/11/2020 S39.012D Strain of muscle, fa scia and tendon of lower back, subsequent encounter Natty M. Vespa, [facility] 09/09/2020 S39.012D Strain of muscle, fa scia and tendon of lower back, subsequent encounter Natty M. Vespa, [facility] 08/24/2020 S39.012D Strain of muscle, fa scia and tendon of lower back, subsequent encounter Hiram Mooney P.T. 08/19/2020 S39.012D Strain of muscle, fa scia and tendon of lower back, subsequent encounter Natty M. Vespa, [facility] 08/14/2020 S39.012D Strain of muscle, fa scia and tendon of lower back, subsequent encounter Natty M. Vespa, [facility] 08/10/2020 S39.012D Strain of muscle, fa scia [...] 12/23/2020 4:00 pm - MARISABEL Cano at [place] Functional Status Description No Information Available Mental Status Description No Information Available Referrals Refer to Dr Reason for Referral Status Appt Date Brianna Malave MD MRI LUMBAR SPINE OK TO [facility] P ER MTGS AND PER PAULINO OK TO [facility] AT [facility] FEE [facility]. PASSED TO [facility]. Created [address] [place] [address] [phone] Brianna Malave MD PT LOW BACK WRITTEN AUTH PASSED TO PT DEPT. Created [address] [place] [address] [phone] Brianna Malave MD PT- LOW BACK OK TO [facility] 2ND SET. TRI AGED PT DEPT. Created [facility] [address] [id number] [phone] Kian Younger, PA-C PT LOW BACK OK TO [facility] 1ST SET PASSE D TO PT DEPT. Created [facility] [place] [address] [phone]
--- OUTSIDE RECORDS SUMMARY | 2021-03-15 09:53 | CCD | Continuity of Care Document ---
Author Author Darius [facility] Organization Unknown Address [address] [place] [address] Phone [phone] Problems Description No Information Available Social History Type Date Description Comments Sex Unknown Tobacco Use Start: Unknown End: Unknown Patient is a former smoker Allergies, Adverse Reactions, Alerts Description No Known Drug Allergies Medications Active Medications SIG Qnty Indications Ordering Provide r Date Pfizer-Biont[employer]DatingTree Covid-19 Vaccine 30mcg/0.3ML Suspension Unknown Cyclobenzaprine HCL 10mg Tablets Althea Dahl, ASSISTANT SERVICE MANAGER Ibuprofen 600mg Tablets Althea Dahl, ASSISTANT SERVICE MANAGER History Medications No Active Medications Unknown - 11/04/2020 Immunizations Description No Information Available Vital Signs Date Vital Result Comment 07/13/2020 1:10pm Body Temperature 96.4 F Height 71.5 inches 5'11.50" Weight 276.00 lb BMI (Body Mass Index) 38.0 kg/m2 Results Description No Information Available Procedures Date Code Description Status 12/15/2020 17947 Therapeutic Procedure, Each 15 M inutes Completed 12/15/2020 16499 Hot Or Cold Packs Completed 12/15/2020 21498 Manual Therapy Each 15 Minutes C ompleted 12/11/2020 79635 Manual Therapy Each 15 Minutes C ompleted 12/11/2020 53849 Therapeutic Procedure, Each 15 M inutes Completed 12/11/2020 44996 Hot Or Cold Packs Completed 12/09/2020 94843 Manual Therapy Each 15 Minutes C ompleted 12/09/2020 40600 Therapeutic Procedure, Each 15 M inutes Completed 12/09/2020 14692 Hot Or Cold Packs Completed 12/04/2020 15282 Manual Therapy Each 15 Minutes C ompleted 12/04/2020 05825 Therapeutic Procedure, Each 15 M inutes Completed 12/02/2020 46538 Manual Therapy Each 15 Minutes C ompleted 12/02/2020 30817 Therapeutic Procedure, Each 15 M inutes Completed 11/27/2020 12323 Hot Or Cold Packs Completed 11/27/2020 56019 Therapeutic Procedure, Each 15 M inutes Completed 11/27/2020 78410 Manual Therapy Each 15 Minutes C ompleted 11/25/2020 42903 Manual Therapy Each 15 Minutes C ompleted 11/25/2020 04677 Therapeutic Procedure, Each 15 M inutes Completed 11/17/2020 77093 Re-Eval Of PT Establ ished Plan Of Care 20Mins Face To Face PT/Fam Completed 11/04/2020 94645 Office/Outpatient Established Lo w MDM 20-29 Min Completed 10/08/2020 66711 Manual Therapy Each 15 Minutes C ompleted 10/08/2020 14781 Therapeutic Procedure, Each 15 M inutes Completed 10/01/2020 64789 Manual Therapy Each 15 Minutes C ompleted 10/01/2020 11628 Therapeutic Procedure, Each 15 M inutes Completed 10/01/2020 04626 Hot Or Cold Packs Completed 09/23/2020 68635 Manual Therapy Each 15 Minutes C ompleted 09/23/2020 23152 Therapeutic Procedure, Each 15 M inutes Completed 09/23/2020 80808 Electrical Stimulati on Manual, Each 15 Min, Constant Attendance Completed 09/23/2020 47959 Hot Or Cold Packs Completed 09/21/2020 01541 Electrical Stimulati on Manual, Each 15 Min, Constant Attendance Completed 09/21/2020 54536 Hot Or Cold Packs Completed 09/21/2020 41493 Manual Therapy Each 15 Minutes C ompleted 09/21/2020 48010 Therapeutic Procedure, Each 15 M inutes Completed 09/21/2020 66013 Office/Outpatient Established Mo d MDM 30-39 Min Completed 09/17/2020 91665 Re-Eval Of PT Establ ished Plan Of Care 20Mins Face To Face PT/Fam Completed 09/17/2020 79399 Manual Therapy Each 15 Minutes C ompleted 09/17/2020 09328 Therapeutic Procedure, Each 15 M inutes Completed 09/17/2020 11034 Electrical Stimulati on Manual, Each 15 Min, Constant Attendance Completed 09/17/2020 97792 Hot Or Cold Packs Completed 09/15/2020 39223 Manual Therapy Each 15 Minutes C ompleted 09/15/2020 49478 Therapeutic Procedure, Each 15 M inutes Completed 09/15/2020 11380 Electrical Stimulati on Manual, Each 15 Min, Constant Attendance Completed 09/15/2020 70780 Hot Or Cold Packs Completed 09/11/2020 95868 Manual Therapy Each 15 Minutes C ompleted 09/11/2020 88515 Therapeutic Procedure, Each 15 M inutes Completed 09/11/2020 88184 Electrical Stimulati on Manual, Each 15 Min, Constant Attendance Completed 09/11/2020 93487 Hot Or Cold Packs Completed 09/09/2020 18744 Hot Or Cold Packs Completed 09/09/2020 70979 Electrical Stimulati on Manual, Each 15 Min, Constant Attendance Completed 09/09/2020 05542 Manual Therapy Each 15 Minutes C ompleted 09/09/2020 91031 Therapeutic Procedure, Each 15 M inutes Completed 08/24/2020 60680 Therapeutic Procedure, Each 15 M inutes Completed 08/24/2020 81659 Therapeutic Procedure, Each 15 M inutes Completed 08/24/2020 77064 Electrical Stimulati on Manual, Each 15 Min, Constant Attendance Completed 08/24/2020 44941 Hot Or Cold Packs Completed 08/19/2020 99224 Therapeutic Procedure, Each 15 M inutes Completed 08/19/2020 71907 Electrical Stimulati on Manual, Each 15 Min, Constant Attendance Completed 08/19/2020 11741 Hot Or Cold Packs Completed 08/14/2020 16468 Therapeutic Procedure, Each 15 M inutes Completed 08/14/2020 19018 Hot Or Cold Packs Completed 08/14/2020 28017 Electrical Stimulati on Manual, Each 15 Min, Constant Attendance Completed 08/10/2020 96457 Office/Outpatient Established Lo w MDM 20-29 Min Completed 08/07/2020 19986 Therapeutic Procedure, Each 15 M inutes Completed 08/07/2020 83122 Electrical Stimulati on Manual, Each 15 Min, Constant Attendance Completed 08/07/2020 04408 Hot Or Cold Packs Completed 07/29/2020 80461 Physical Therapy Eval - Low Comp lexity Completed 07/13/2020 48102 Office/Outpatient New Moderate M DM 45-59 Minutes Completed Medical Devices Description No Information Available Encounters Type Date Location Provider Dx Diagnosis Office Visit 11/04/2020 4:30p [place] MARISABEL Cano S39.012D Strain of muscle, fascia and tendon of lower back, subs Office Visit 09/21/2020 1:00p [place] Malave MD S3 9.012D Strain of muscle, [...] of lower back, subsequent encounter Natty Cross, [facility] 12/11/2020 S39.012D Strain of muscle, fa scia and tendon of lower back, subsequent encounter Natty Cross, [facility] 12/09/2020 S39.012D Strain of muscle, fa scia and tendon of lower back, subsequent encounter Hiram Mooney P.T. 12/04/2020 S39.012D Strain of muscle, fa scia and tendon of lower back, subsequent encounter Hiram Mooney P.T. 12/02/2020 S39.012D Strain of muscle, fa scia and tendon of lower back, subsequent encounter Natty Cross, [facility] 11/27/2020 S39.012D Strain of muscle, fa scia and tendon of lower back, subsequent encounter Natty Cross, [facility] 11/25/2020 S39.012D Strain of muscle, fa scia and tendon of lower back, subsequent encounter Natty Cross, [facility] 11/17/2020 S39.012D Strain of muscle, fa scia and tendon of lower back, subsequent encounter Natty M. Jonathanpa, [facility] 11/04/2020 S39.012D Strain of muscle, fa scia and tendon of lower back, subsequent encounter MARISABEL Cano 10/08/2020 S39.012D Strain of muscle, fa scia and tendon of lower back, subsequent encounter Natty M. Vespa, [facility] 10/01/2020 S39.012D Strain of muscle, fa scia and tendon of lower back, subsequent encounter Natty M. Vespa, [facility] 09/23/2020 S39.012D Strain of muscle, fa scia and tendon of lower back, subsequent encounter Natty M. Vespa, [facility] 09/21/2020 S39.012D Strain of muscle, fa scia and tendon of lower back, subsequent encounter Natty M. Vespa, [facility] 09/21/2020 S39.012D Strain of muscle, fa scia and tendon of lower back, subsequent encounter Channing Malave MD 09/17/2020 S39.012D Strain of muscle, fa scia and tendon of lower back, subsequent encounter Natty M. Vespa, [facility] 09/15/2020 S39.012D Strain of muscle, fa scia and tendon of lower back, subsequent encounter Natty M. Vespa, [facility] 09/11/2020 S39.012D Strain of muscle, fa scia and tendon of lower back, subsequent encounter Natty M. Vespa, [facility] 09/09/2020 S39.012D Strain of muscle, fa scia and tendon of lower back, subsequent encounter Natty M. Vespa, [facility] 08/24/2020 S39.012D Strain of muscle, fa scia and tendon of lower back, subsequent encounter Hiram Mooney P.T. 08/19/2020 S39.012D Strain of muscle, fa scia and tendon of lower back, subsequent encounter Natty M. Vespa, [facility] 08/14/2020 S39.012D Strain of muscle, fa scia and tendon of lower back, subsequent encounter Natty M. Vespa, [facility] 08/10/2020 S39.012D Strain of muscle, fa [...] 12/23/2020 4:00 pm - MARISABEL Cano at [place] Functional Status Description No Information Available Mental Status Description No Information Available Referrals Refer to Dr Reason for Referral Status Appt Date Brianna Malave MD MRI LUMBAR SPINE [facility] TO [facility] P ER MTGS AND PER PAULINO OK TO [facility] FEE [facility]. PASSED TO [facility]. Created [address] [place] [address] [phone] Brianna Malave MD PT LOW BACK WRITTEN AUTH PASSED TO PT DEPT. Created [address] [place] [address] [phone] Brianna Malave MD PT- LOW BACK OK TO [facility] 2ND SET. TRI AGED PT DEPT. Created [facility] [address] [id number] [phone] Kian Younger, PA-C PT LOW BACK OK TO [facility] 1ST SET PASSE D TO PT DEPT. Created [facility] [place] [address] [phone]
--- OUTSIDE RECORDS SUMMARY | 2021-03-15 09:53 | CCD | Continuity of Care Document ---
Author Author Darius GUZMAN PA Organization Unknown Address [address] [place] [address] Phone [phone] Problems Description No Information Available Social History Type Date Description Comments Sex Unknown Tobacco Use Start: Unknown End: Unknown Patient is a former smoker Allergies, Adverse Reactions, Alerts Description No Known Drug Allergies Medications Active Medications SIG Qnty Indications Ordering Provide r Date Pfizer-Bion[employer]ShipHawk Covid-19 Vaccine 30mcg/0.3ML Suspension Unknown Cyclobenzaprine HCL 10mg Tablets Althea Dahl, DISTRICT OR DISTRICT OFFICE DIRECTOR Ibuprofen 600mg Tablets Althea Dahl, DISTRICT OR DISTRICT OFFICE DIRECTOR History Medications No Active Medications Unknown - 11/04/2020 Immunizations Description No Information Available Vital Signs Date Vital Result Comment 07/13/2020 1:10pm Body Temperature 96.4 F Height 71.5 inches 5'11.50" Weight 276.00 lb BMI (Body Mass Index) 38.0 kg/m2 Results Description No Information Available Procedures Date Code Description Status 12/23/2020 01954 Office/Outpatient Established Lo w MDM 20-29 Min Completed 12/22/2020 91541 Manual Therapy Each 15 Minutes C ompleted 12/22/2020 97018 Hot Or Cold Packs Completed 12/22/2020 83444 Therapeutic Procedure, Each 15 M inutes Completed 12/17/2020 97688 Re-Eval Of PT Establ ished Plan Of Care 20Mins Face To Face PT/Fam Completed 12/17/2020 59474 Manual Therapy Each 15 Minutes C ompleted 12/17/2020 36795 Therapeutic Procedure, Each 15 M inutes Completed 12/17/2020 29057 Hot Or Cold Packs Completed 12/15/2020 48685 Manual Therapy Each 15 Minutes C ompleted 12/15/2020 64430 Therapeutic Procedure, Each 15 M inutes Completed 12/15/2020 78592 Hot Or Cold Packs Completed 12/11/2020 10502 Manual Therapy Each 15 Minutes C ompleted 12/11/2020 23691 Hot Or Cold Packs Completed 12/11/2020 20020 Therapeutic Procedure, Each 15 M inutes Completed 12/09/2020 85383 Manual Therapy Each 15 Minutes C ompleted 12/09/2020 61571 Therapeutic Procedure, Each 15 M inutes Completed 12/09/2020 93627 Hot Or Cold Packs Completed 12/04/2020 09197 Manual Therapy Each 15 Minutes C ompleted 12/04/2020 56832 Therapeutic Procedure, Each 15 M inutes Completed 12/02/2020 84098 Therapeutic Procedure, Each 15 M inutes Completed 12/02/2020 97329 Manual Therapy Each 15 Minutes C ompleted 11/27/2020 84213 Manual Therapy Each 15 Minutes C ompleted 11/27/2020 37985 Therapeutic Procedure, Each 15 M inutes Completed 11/27/2020 63151 Hot Or Cold Packs Completed 11/25/2020 64853 Manual Therapy Each 15 Minutes C ompleted 11/25/2020 79519 Therapeutic Procedure, Each 15 M inutes Completed 11/17/2020 39486 Re-Eval Of PT Establ ished Plan Of Care 20Mins Face To Face PT/Fam Completed 11/04/2020 64766 Office/Outpatient Established Lo w MDM 20-29 Min Completed 10/08/2020 68178 Manual Therapy Each 15 Minutes C ompleted 10/08/2020 91536 Therapeutic Procedure, Each 15 M inutes Completed 10/01/2020 06310 Manual Therapy Each 15 Minutes C ompleted 10/01/2020 07824 Hot Or Cold Packs Completed 10/01/2020 30233 Therapeutic Procedure, Each 15 M inutes Completed 09/23/2020 69863 Manual Therapy Each 15 Minutes C ompleted 09/23/2020 06569 Therapeutic Procedure, Each 15 M inutes Completed 09/23/2020 56069 Electrical Stimulati on Manual, Each 15 Min, Constant Attendance Completed 09/23/2020 47366 Hot Or Cold Packs Completed 09/21/2020 65970 Office/Outpatient Established Mo d MDM 30-39 Min Completed 09/21/2020 95355 Hot Or Cold Packs Completed 09/21/2020 34698 Electrical Stimulati on Manual, Each 15 Min, Constant Attendance Completed 09/21/2020 40469 Manual Therapy Each 15 Minutes C ompleted 09/21/2020 84676 Therapeutic Procedure, Each 15 M inutes Completed 09/17/2020 63748 Re-Eval Of PT Establ ished Plan Of Care 20Mins Face To Face PT/Fam Completed 09/17/2020 95574 Manual Therapy Each 15 Minutes C ompleted 09/17/2020 24566 Therapeutic Procedure, Each 15 M inutes Completed 09/17/2020 16893 Electrical Stimulati on Manual, Each 15 Min, Constant Attendance Completed 09/17/2020 08099 Hot Or Cold Packs Completed 09/15/2020 25483 Manual Therapy Each 15 Minutes C ompleted 09/15/2020 02360 Therapeutic Procedure, Each 15 M inutes Completed 09/15/2020 98129 Electrical Stimulati on Manual, Each 15 Min, Constant Attendance Completed 09/15/2020 76377 Hot Or Cold Packs Completed 09/11/2020 03044 Manual Therapy Each 15 Minutes C ompleted 09/11/2020 79462 Therapeutic Procedure, Each 15 M inutes Completed 09/11/2020 23499 Electrical Stimulati on Manual, Each 15 Min, Constant Attendance Completed 09/11/2020 84892 Hot Or Cold Packs Completed 09/09/2020 22094 Hot Or Cold Packs Completed 09/09/2020 82543 Electrical Stimulati on Manual, Each 15 Min, Constant Attendance Completed 09/09/2020 70682 Manual Therapy Each 15 Minutes C ompleted 09/09/2020 92544 Therapeutic Procedure, Each 15 M inutes Completed 08/24/2020 63165 Therapeutic Procedure, Each 15 M inutes Completed 08/24/2020 16373 Therapeutic Procedure, Each 15 M inutes Completed 08/24/2020 85836 Electrical Stimulati on Manual, Each 15 Min, Constant Attendance Completed 08/24/2020 01491 Hot Or Cold Packs Completed 08/19/2020 28103 Therapeutic Procedure, Each 15 M inutes Completed 08/19/2020 84715 Electrical Stimulati on Manual, Each 15 Min, Constant Attendance Completed 08/19/2020 95479 Hot Or Cold Packs Completed 08/14/2020 19665 Therapeutic Procedure, Each 15 M inutes Completed 08/14/2020 89886 Hot Or Cold Packs Completed 08/14/2020 26348 Electrical Stimulati on Manual, Each 15 Min, Constant Attendance Completed 08/10/2020 33291 Office/Outpatient Established Lo w MDM 20-29 Min Completed 08/07/2020 05956 Therapeutic Procedure, Each 15 M inutes Completed 08/07/2020 17637 Electrical Stimulati on Manual, Each 15 Min, Constant Attendance Completed 08/07/2020 81815 Hot Or Cold Packs Completed 07/29/2020 74344 Physical Therapy Eval - Low Comp lexity Completed 07/13/2020 73699 Office/Outpatient New Moderate M DM 45-59 Minutes Completed Medical Devices Description No Information Available Encounters Type Date Location Provider Dx Diagnosis Office Visit 12/23/2020 4:00p [place] SARA Cano S39.012D Strain of muscle, fascia and tendon of lower back, subs M51.26 Other intervertebral disc di splacement, lumbar region M51.27 Other intervertebral disc di splacement, lumbosacral region Office Visit 11/04/2020 4:30p [place] SARA Cano S39.012D Strain of muscle, fascia [...] lower back, subsequent encounter Natty M. Jonathanpa, [facility] 12/15/2020 S39.012D Strain of muscle, fa scia and tendon of lower back, subsequent encounter Natty M. Vespa, [facility] 12/11/2020 S39.012D Strain of muscle, fa scia and tendon of lower back, subsequent encounter Natty M. Vespa, [facility] 12/09/2020 S39.012D Strain of muscle, fa scia and tendon of lower back, subsequent encounter Hiram Mooney P.T. 12/04/2020 S39.012D Strain of muscle, fa scia and tendon of lower back, subsequent encounter Hiram Mooney P.T. 12/02/2020 S39.012D Strain of muscle, fa scia and tendon of lower back, subsequent encounter Natty M. Vespa, [facility] 11/27/2020 S39.012D Strain of muscle, fa scia and tendon of lower back, subsequent encounter Natty M. Vespa, [facility] 11/25/2020 S39.012D Strain of muscle, fa scia and tendon of lower back, subsequent encounter Natty M. Vespa, [facility] 11/17/2020 S39.012D Strain of muscle, fa scia and tendon of lower back, subsequent encounter Natty M. Vespa, [facility] 11/04/2020 S39.012D Strain of muscle, fa scia and tendon of lower back, subsequent encounter SARA Cano 10/08/2020 S39.012D Strain of muscle, fa scia and tendon of lower back, subsequent encounter Natty M. Vespa, [facility] 10/01/2020 S39.012D Strain of muscle, fa scia and tendon of lower back, subsequent encounter Natty M. Jonathanpa, [facility] 09/23/2020 S39.012D Strain of muscle, fa scia and tendon of lower back, subsequent encounter Natty M. Vespa, [facility] 09/21/2020 S39.012D Strain of muscle, fa scia and tendon of lower back, subsequent encounter Natty M. Vespa, [facility] 09/21/2020 S39.012D Strain of muscle, fa scia and tendon of lower back, subsequent encounter Channing Malave MD 09/17/2020 S39.012D Strain of muscle, fa scia and tendon of lower back, subsequent encounter Natty M. Vespa, [facility] 09/15/2020 S39.012D Strain of muscle, fa scia and tendon of lower back, subsequent encounter Natty M. Vespa, [facility] 09/11/2020 S39.012D Strain of muscle, fa scia and tendon of lower back, subsequent encounter Natty M. Vespa, [facility] 09/09/2020 S39.012D Strain of muscle, fa scia and tendon of lower back, subsequent encounter Natty M. Vespa, [facility] 08/24/2020 S39.012D Strain of muscle, fa scia and tendon of lower back, subsequent encounter Hiram Mooney P.T. 08/19/2020 S39.012D Strain of muscle, fa scia and tendon of lower back, subsequent encounter Natty M. Vespa, [facility] 08/14/2020 S39.012D Strain of muscle, fa scia and tendon of lower back, subsequent encounter Natty M. Vespa, [facility] 08/10/2020 S39.012D Strain of muscle, fa scia and tendon of lower back, subsequent encounter Channing Malave MD 08/07/2020 S39.012D Strain of muscle, fa scia and tendon of lower back, subsequent encounter Natty M. Vespa, [facility] 07/29/2020 S39.012D Strain of muscle, fa scia and tendon of lower back, subsequent encounter Natty M. Vespa, [facility] 07/13/2020 S39.012A Strain of muscle, fa scia and tendon of lower back, initial encounter Channing Malave MD Plan of Treatment Future Appointment(s):* 01/28/2021 1:00 pm - SARA Cano at [place] 12/23/2020 - SARA Cano* S39.012D Strain of muscle, fascia and tendon of lower back, subsequent encounter * M51.26 Other intervertebral disc displacement, lumbar region * M51.27 Other intervertebral disc displacement, lumbosacral region Functional Status Description No Information Available Mental Status Description No Information Available Referrals Refer to Dr Reason for Referral Status Appt Date Brianna Malave MD MRI LUMBAR SPINE OK TO [facility] P ER MTGS AND PER PAULINO OK TO [facility] AT [facility] FEE [facility]. PASSED TO [facility]. Created [address] [place] [address] [phone] Brianna Malave MD PT LOW BACK WRITTEN AUTH PASSED TO PT DEPT. Created [address] [place] [address] [phone] Brianna Malave MD PT- LOW BACK OK TO [facility] 2ND SET. TRI AGED PT DEPT. Created [address] [place] [phone] [phone] Kian Younger, PA-C PT LOW BACK OK TO [facility] 1ST SET PASSE D TO PT DEPT. Created [facility] [place] [address] [phone]
--- OUTSIDE RECORDS SUMMARY | 2021-03-15 09:53 | CCD | Continuity of Care Document ---
Author Author Darius MOONEY P.T. Organization Unknown Address [address] [place] [address] [address] [place] [address] Phone [phone] Problems Description No Information Available Social History Type Date Description Comments Sex Unknown Tobacco Use Start: Unknown End: Unknown Patient is a former smoker Allergies, Adverse Reactions, Alerts Description No Known Drug Allergies Medications Active Medications SIG Qnty Indications Ordering Provide r Date Pfizer-Biontech Covid-19 Vaccine 30mcg/0.3ML Suspension Unknown Cyclobenzaprine HCL 10mg Tablets Althea Dahl, BUNK ASSEMBLER Ibuprofen 600mg Tablets Althea Dahl, BUNK ASSEMBLER History Medications No Active Medications Unknown - 11/04/2020 Immunizations Description No Information Available Vital Signs Date Vital Result Comment 07/13/2020 1:10pm Body Temperature 96.4 F Height 71.5 inches 5'11.50" Weight 276.00 lb BMI (Body Mass Index) 38.0 kg/m2 Results Description No Information Available Procedures Date Code Description Status 12/15/2020 54557 Therapeutic Procedure, Each 15 M inutes Completed 12/15/2020 01266 Hot Or Cold Packs Completed 12/15/2020 57156 Manual Therapy Each 15 Minutes C ompleted 12/11/2020 46946 Manual Therapy Each 15 Minutes C ompleted 12/11/2020 71610 Therapeutic Procedure, Each 15 M inutes Completed 12/11/2020 05732 Hot Or Cold Packs Completed 12/09/2020 40049 Manual Therapy Each 15 Minutes C ompleted 12/09/2020 89479 Therapeutic Procedure, Each 15 M inutes Completed 12/09/2020 89653 Hot Or Cold Packs Completed 12/04/2020 03811 Manual Therapy Each 15 Minutes C ompleted 12/04/2020 84608 Therapeutic Procedure, Each 15 M inutes Completed 12/02/2020 01291 Manual Therapy Each 15 Minutes C ompleted 12/02/2020 47944 Therapeutic Procedure, Each 15 M inutes Completed 11/27/2020 31326 Hot Or Cold Packs Completed 11/27/2020 58985 Therapeutic Procedure, Each 15 M inutes Completed 11/27/2020 61090 Manual Therapy Each 15 Minutes C ompleted 11/25/2020 79924 Manual Therapy Each 15 Minutes C ompleted 11/25/2020 80309 Therapeutic Procedure, Each 15 M inutes Completed 11/17/2020 95345 Re-Eval Of PT Establ ished Plan Of Care 20Mins Face To Face PT/Fam Completed 11/04/2020 86567 Office/Outpatient Established Lo w MDM 20-29 Min Completed 10/08/2020 61068 Manual Therapy Each 15 Minutes C ompleted 10/08/2020 19100 Therapeutic Procedure, Each 15 M inutes Completed 10/01/2020 25197 Manual Therapy Each 15 Minutes C ompleted 10/01/2020 46872 Therapeutic Procedure, Each 15 M inutes Completed 10/01/2020 33953 Hot Or Cold Packs Completed 09/23/2020 15109 Manual Therapy Each 15 Minutes C ompleted 09/23/2020 59269 Therapeutic Procedure, Each 15 M inutes Completed 09/23/2020 09202 Electrical Stimulati on Manual, Each 15 Min, Constant Attendance Completed 09/23/2020 57332 Hot Or Cold Packs Completed 09/21/2020 02813 Electrical Stimulati on Manual, Each 15 Min, Constant Attendance Completed 09/21/2020 75179 Hot Or Cold Packs Completed 09/21/2020 45889 Manual Therapy Each 15 Minutes C ompleted 09/21/2020 32028 Therapeutic Procedure, Each 15 M inutes Completed 09/21/2020 46317 Office/Outpatient Established Mo d MDM 30-39 Min Completed 09/17/2020 37776 Re-Eval Of PT Establ ished Plan Of Care 20Mins Face To Face PT/Fam Completed 09/17/2020 51398 Manual Therapy Each 15 Minutes C ompleted 09/17/2020 13910 Therapeutic Procedure, Each 15 M inutes Completed 09/17/2020 84546 Electrical Stimulati on Manual, Each 15 Min, Constant Attendance Completed 09/17/2020 12626 Hot Or Cold Packs Completed 09/15/2020 11956 Manual Therapy Each 15 Minutes C ompleted 09/15/2020 64164 Therapeutic Procedure, Each 15 M inutes Completed 09/15/2020 48275 Electrical Stimulati on Manual, Each 15 Min, Constant Attendance Completed 09/15/2020 84939 Hot Or Cold Packs Completed 09/11/2020 98799 Manual Therapy Each 15 Minutes C ompleted 09/11/2020 28726 Therapeutic Procedure, Each 15 M inutes Completed 09/11/2020 40646 Electrical Stimulati on Manual, Each 15 Min, Constant Attendance Completed 09/11/2020 61904 Hot Or Cold Packs Completed 09/09/2020 41755 Hot Or Cold Packs Completed 09/09/2020 07047 Electrical Stimulati on Manual, Each 15 Min, Constant Attendance Completed 09/09/2020 60998 Manual Therapy Each 15 Minutes C ompleted 09/09/2020 56901 Therapeutic Procedure, Each 15 M inutes Completed 08/24/2020 06316 Therapeutic Procedure, Each 15 M inutes Completed 08/24/2020 84005 Therapeutic Procedure, Each 15 M inutes Completed 08/24/2020 50151 Electrical Stimulati on Manual, Each 15 Min, Constant Attendance Completed 08/24/2020 49468 Hot Or Cold Packs Completed 08/19/2020 18748 Therapeutic Procedure, Each 15 M inutes Completed 08/19/2020 07968 Electrical Stimulati on Manual, Each 15 Min, Constant Attendance Completed 08/19/2020 86402 Hot Or Cold Packs Completed 08/14/2020 58995 Therapeutic Procedure, Each 15 M inutes Completed 08/14/2020 71898 Hot Or Cold Packs Completed 08/14/2020 30723 Electrical Stimulati on Manual, Each 15 Min, Constant Attendance Completed 08/10/2020 60868 Office/Outpatient Established Lo w MDM 20-29 Min Completed 08/07/2020 34827 Therapeutic Procedure, Each 15 M inutes Completed 08/07/2020 08777 Electrical Stimulati on Manual, Each 15 Min, Constant Attendance Completed 08/07/2020 03901 Hot Or Cold Packs Completed 07/29/2020 98663 Physical Therapy Eval - Low Comp lexity Completed 07/13/2020 43866 Office/Outpatient New Moderate M DM 45-59 Minutes Completed Medical Devices Description No Information Available Encounters Type Date Location Provider Dx Diagnosis Office Visit 11/04/2020 4:30p [place] SARA Cano S39.012D Strain of muscle, fascia and tendon of lower back, subs Office Visit 09/21/2020 1:00p [place] Malave MD S3 9.012D Strain of muscle, [...] back, subsequent encounter Natty Cross, [facility] 12/11/2020 S39.012D Strain of muscle, fa scia and tendon of lower back, subsequent encounter Natty Cross, [facility] 12/09/2020 S39.012D Strain of muscle, fa scia and tendon of lower back, subsequent encounter Hiram Mooney P.TAdis 12/04/2020 S39.012D Strain of muscle, fa scia and tendon of lower back, subsequent encounter Hiram Mooney P.T. 12/02/2020 S39.012D Strain of muscle, fa scia and tendon of lower back, subsequent encounter Natty Cross, [facility] 11/27/2020 S39.012D Strain of muscle, fa scia and tendon of lower back, subsequent encounter Natty Cross, [facility] 11/25/2020 S39.012D Strain of muscle, fa scia and tendon of lower back, subsequent encounter Natty Cross, [facility] 11/17/2020 S39.012D Strain of muscle, fa scia and tendon of lower back, subsequent encounter Natty M. Jonathanpa, [facility] 11/04/2020 S39.012D Strain of muscle, fa scia and tendon of lower back, subsequent encounter SARA [place] 10/08/2020 S39.012D Strain of muscle, fa scia and tendon of lower back, subsequent encounter Antty M. Vespa, [facility] 10/01/2020 S39.012D Strain of muscle, fa scia and tendon of lower back, subsequent encounter Natty M. Vespa, [facility] 09/23/2020 S39.012D Strain of muscle, fa scia and tendon of lower back, subsequent encounter Natty M. Vespa, [facility] 09/21/2020 S39.012D Strain of muscle, fa scia and tendon of lower back, subsequent encounter Natty M. Vespa, [facility] 09/21/2020 S39.012D Strain of muscle, fa scia and tendon of lower back, subsequent encounter Channing Malave MD 09/17/2020 S39.012D Strain of muscle, fa scia and tendon of lower back, subsequent encounter Natty M. Vespa, [facility] 09/15/2020 S39.012D Strain of muscle, fa scia and tendon of lower back, subsequent encounter Natty M. Vespa, [facility] 09/11/2020 S39.012D Strain of muscle, fa scia and tendon of lower back, subsequent encounter Natty M. Vespa, [facility] 09/09/2020 S39.012D Strain of muscle, fa scia and tendon of lower back, subsequent encounter Natty M. Vespa, [facility] 08/24/2020 S39.012D Strain of muscle, fa scia and tendon of lower back, subsequent encounter Hiram Mooney P.T. 08/19/2020 S39.012D Strain of muscle, fa scia and tendon of lower back, subsequent encounter Natty M. Vespa, [facility] 08/14/2020 S39.012D Strain of muscle, fa scia and tendon of lower back, subsequent encounter Natty M. Vespa, [facility] 08/10/2020 S39.012D Strain of muscle, fa scia and tendon of lower back, subsequent encounter Channing Malave MD 08/07/2020 S39.012D Strain of muscle, fa scia and tendon of lower back, subsequent encounter Natty WestAdis Cross, [facility] 07/29/2020 S39.012D Strain of muscle, fa scia and tendon of lower back, subsequent encounter Natty WestAdis Cross, [facility] 07/13/2020 S39.012A Strain of muscle, fa scia and tendon of lower back, initial encounter Channing Malave MD Plan of Treatment Future Appointment(s):* 12/22/2020 8:00 am - Hiram Mooney P.T. at Physical Therapy * 12/23/2020 4:00 pm - SARA Cano at [place] Functional Status Description No Information Available Mental Status Description No Information Available Referrals Refer to Dr Reason for Referral Status Appt Date Brianna Malave MD MRI LUMBAR SPINE OK TO [facility] P ER MTGS AND PER PAULINO OK TO [facility] AT [facility] FEE [facility]. PASSED TO JOMAR. Created [address] [place] [address] [phone] Brianna Malave MD PT LOW BACK WRITTEN AUTH PASSED TO PT DEPT. Created [address] [place] [address] [phone] Brianna Malave MD PT- LOW BACK OK TO [facility] 2ND SET. TRI AGED PT DEPT. Created [facility] [address] [address] [phone] Kian Younger, PA-C PT LOW BACK OK TO [facility] 1ST SET PASSE D TO PT DEPT. Created [facility] [place] [address] [phone]
--- OUTSIDE RECORDS SUMMARY | 2021-03-15 09:53 | CCD | Continuity of Care Document ---
Author Author Darius MOONEY P.T. Organization Unknown Address [address] [place] [address] [address] [place] [address] Phone [phone] Problems Description No Information Available Social History Type Date Description Comments Sex Unknown Tobacco Use Start: Unknown End: Unknown Patient is a former smoker Allergies, Adverse Reactions, Alerts Description No Known Drug Allergies Medications Active Medications SIG Qnty Indications Ordering Provide r Date Pfizer-Biontech Covid-19 Vaccine 30mcg/0.3ML Suspension Unknown Cyclobenzaprine HCL 10mg Tablets Althea Dahl, LIQUOR INSPECTOR Ibuprofen 600mg Tablets Althea Dahl, LIQUOR INSPECTOR History Medications No Active Medications Unknown - 11/04/2020 Immunizations Description No Information Available Vital Signs Date Vital Result Comment 07/13/2020 1:10pm Body Temperature 96.4 F Height 71.5 inches 5'11.50" Weight 276.00 lb BMI (Body Mass Index) 38.0 kg/m2 Results Description No Information Available Procedures Date Code Description Status 12/15/2020 91313 Therapeutic Procedure, Each 15 M inutes Completed 12/15/2020 84787 Hot Or Cold Packs Completed 12/15/2020 71105 Manual Therapy Each 15 Minutes C ompleted 12/11/2020 25851 Manual Therapy Each 15 Minutes C ompleted 12/11/2020 04095 Therapeutic Procedure, Each 15 M inutes Completed 12/11/2020 62893 Hot Or Cold Packs Completed 12/09/2020 76703 Manual Therapy Each 15 Minutes C ompleted 12/09/2020 82796 Therapeutic Procedure, Each 15 M inutes Completed 12/09/2020 13881 Hot Or Cold Packs Completed 12/04/2020 17498 Manual Therapy Each 15 Minutes C ompleted 12/04/2020 93265 Therapeutic Procedure, Each 15 M inutes Completed 12/02/2020 71469 Manual Therapy Each 15 Minutes C ompleted 12/02/2020 64758 Therapeutic Procedure, Each 15 M inutes Completed 11/27/2020 04415 Hot Or Cold Packs Completed 11/27/2020 43850 Therapeutic Procedure, Each 15 M inutes Completed 11/27/2020 85178 Manual Therapy Each 15 Minutes C ompleted 11/25/2020 40364 Manual Therapy Each 15 Minutes C ompleted 11/25/2020 74130 Therapeutic Procedure, Each 15 M inutes Completed 11/17/2020 37231 Re-Eval Of PT Establ ished Plan Of Care 20Mins Face To Face PT/Fam Completed 11/04/2020 67921 Office/Outpatient Established Lo w MDM 20-29 Min Completed 10/08/2020 45361 Manual Therapy Each 15 Minutes C ompleted 10/08/2020 11535 Therapeutic Procedure, Each 15 M inutes Completed 10/01/2020 89915 Manual Therapy Each 15 Minutes C ompleted 10/01/2020 38557 Therapeutic Procedure, Each 15 M inutes Completed 10/01/2020 31421 Hot Or Cold Packs Completed 09/23/2020 83740 Manual Therapy Each 15 Minutes C ompleted 09/23/2020 03537 Therapeutic Procedure, Each 15 M inutes Completed 09/23/2020 95604 Electrical Stimulati on Manual, Each 15 Min, Constant Attendance Completed 09/23/2020 38122 Hot Or Cold Packs Completed 09/21/2020 06924 Electrical Stimulati on Manual, Each 15 Min, Constant Attendance Completed 09/21/2020 23864 Hot Or Cold Packs Completed 09/21/2020 05552 Manual Therapy Each 15 Minutes C ompleted 09/21/2020 39882 Therapeutic Procedure, Each 15 M inutes Completed 09/21/2020 54764 Office/Outpatient Established Mo d MDM 30-39 Min Completed 09/17/2020 75766 Re-Eval Of PT Establ ished Plan Of Care 20Mins Face To Face PT/Fam Completed 09/17/2020 69340 Manual Therapy Each 15 Minutes C ompleted 09/17/2020 11725 Therapeutic Procedure, Each 15 M inutes Completed 09/17/2020 27319 Electrical Stimulati on Manual, Each 15 Min, Constant Attendance Completed 09/17/2020 10454 Hot Or Cold Packs Completed 09/15/2020 12697 Manual Therapy Each 15 Minutes C ompleted 09/15/2020 67659 Therapeutic Procedure, Each 15 M inutes Completed 09/15/2020 89416 Electrical Stimulati on Manual, Each 15 Min, Constant Attendance Completed 09/15/2020 29529 Hot Or Cold Packs Completed 09/11/2020 19586 Manual Therapy Each 15 Minutes C ompleted 09/11/2020 28559 Therapeutic Procedure, Each 15 M inutes Completed 09/11/2020 33639 Electrical Stimulati on Manual, Each 15 Min, Constant Attendance Completed 09/11/2020 31819 Hot Or Cold Packs Completed 09/09/2020 62384 Hot Or Cold Packs Completed 09/09/2020 47090 Electrical Stimulati on Manual, Each 15 Min, Constant Attendance Completed 09/09/2020 78342 Manual Therapy Each 15 Minutes C ompleted 09/09/2020 00217 Therapeutic Procedure, Each 15 M inutes Completed 08/24/2020 20846 Therapeutic Procedure, Each 15 M inutes Completed 08/24/2020 11187 Therapeutic Procedure, Each 15 M inutes Completed 08/24/2020 43616 Electrical Stimulati on Manual, Each 15 Min, Constant Attendance Completed 08/24/2020 07088 Hot Or Cold Packs Completed 08/19/2020 72678 Therapeutic Procedure, Each 15 M inutes Completed 08/19/2020 53255 Electrical Stimulati on Manual, Each 15 Min, Constant Attendance Completed 08/19/2020 62049 Hot Or Cold Packs Completed 08/14/2020 52153 Therapeutic Procedure, Each 15 M inutes Completed 08/14/2020 80199 Hot Or Cold Packs Completed 08/14/2020 79308 Electrical Stimulati on Manual, Each 15 Min, Constant Attendance Completed 08/10/2020 38983 Office/Outpatient Established Lo w MDM 20-29 Min Completed 08/07/2020 62509 Therapeutic Procedure, Each 15 M inutes Completed 08/07/2020 14828 Electrical Stimulati on Manual, Each 15 Min, Constant Attendance Completed 08/07/2020 62317 Hot Or Cold Packs Completed 07/29/2020 11340 Physical Therapy Eval - Low Comp lexity Completed 07/13/2020 21168 Office/Outpatient New Moderate M DM 45-59 Minutes Completed Medical Devices Description No Information Available Encounters Type Date Location Provider Dx Diagnosis Office Visit 11/04/2020 4:30p [place] SARA Cano S39.012D Strain of muscle, fascia and tendon of lower back, subs Office Visit 09/21/2020 1:00p [place] S3 9.012D Strain of muscle, [...] of lower back, subsequent encounter Natty Cross, [facility] 12/11/2020 S39.012D Strain of muscle, fa scia and tendon of lower back, subsequent encounter Natty Cross, [facility] 12/09/2020 S39.012D Strain of muscle, fa scia and tendon of lower back, subsequent encounter Hiram Mooney P.TAdis 12/04/2020 S39.012D Strain of muscle, fa scia and tendon of lower back, subsequent encounter Hiram Mooney P.T. 12/02/2020 S39.012D Strain of muscle, fa scia and tendon of lower back, subsequent encounter Natty Cross, [facility] 11/27/2020 S39.012D Strain of muscle, fa scia and tendon of lower back, subsequent encounter Natty Cross, [facility] 11/25/2020 S39.012D Strain of muscle, fa scia and tendon of lower back, subsequent encounter Natty Cross, [facility] 11/17/2020 S39.012D Strain of muscle, fa scia and tendon of lower back, subsequent encounter Natty M. Jonathanpa, [facility] 11/04/2020 S39.012D Strain of muscle, fa scia and tendon of lower back, subsequent encounter SARA [place]o 10/08/2020 S39.012D Strain of muscle, fa scia and tendon of lower back, subsequent encounter Natty M. Vespa, [facility] 10/01/2020 S39.012D Strain of muscle, fa scia and tendon of lower back, subsequent encounter Natty M. Vespa, [facility] 09/23/2020 S39.012D Strain of muscle, fa scia and tendon of lower back, subsequent encounter Natty M. Vespa, [facility] 09/21/2020 S39.012D Strain of muscle, fa scia and tendon of lower back, subsequent encounter Natty M. Vespa, [facility] 09/21/2020 S39.012D Strain of muscle, fa scia and tendon of lower back, subsequent encounter Channing Malave MD 09/17/2020 S39.012D Strain of muscle, fa scia and tendon of lower back, subsequent encounter Natty M. Vespa, [facility] 09/15/2020 S39.012D Strain of muscle, fa scia and tendon of lower back, subsequent encounter Natty M. Vespa, [facility] 09/11/2020 S39.012D Strain of muscle, fa scia and tendon of lower back, subsequent encounter Natty M. Vespa, [facility] 09/09/2020 S39.012D Strain of muscle, fa scia and tendon of lower back, subsequent encounter Natty M. Vespa, [facility] 08/24/2020 S39.012D Strain of muscle, fa scia and tendon of lower back, subsequent encounter Hiram Mooney P.T. 08/19/2020 S39.012D Strain of muscle, fa scia and tendon of lower back, subsequent encounter Natty M. Vespa, [facility] 08/14/2020 S39.012D Strain of muscle, fa scia and tendon of lower back, subsequent encounter Natty M. Vespa, [facility] 08/10/2020 S39.012D Strain of muscle, [...] 12/23/2020 4:00 pm - SARA Cano at [place] Functional Status Description No Information Available Mental Status Description No Information Available Referrals Refer to Dr Reason for Referral Status Appt Date Brianna Malave MD MRI LUMBAR SPINE OK TO [facility] P ER MTGS AND PER PAULINO OK TO [facility] AT [facility] FEE [facility]. PASSED TO JOMAR. Created [address] [place] [address] [phone] Brianna Malave MD PT LOW BACK WRITTEN AUTH PASSED TO PT DEPT. Created [address] [place] [address] [phone] Brianna Malave MD PT- LOW BACK OK TO [facility] 2ND SET. TRI AGED PT DEPT. Created [facility] [address] [id number] [phone] Kian Younger, PA-C PT LOW BACK OK TO [facility] 1ST SET PASSE D TO PT DEPT. Created [facility] [place] [address] [phone]
--- OUTSIDE RECORDS SUMMARY | 2021-03-15 09:53 | CCD | Continuity of Care Document ---
Author Author Darius GUZMAN PA Organization Unknown Address [address] [place] [address] Phone [phone] Problems Description No Information Available Social History Type Date Description Comments Sex Unknown Tobacco Use Start: Unknown End: Unknown Patient is a former smoker Allergies, Adverse Reactions, Alerts Description No Known Drug Allergies Medications Active Medications SIG Qnty Indications Ordering Provide r Date [facility] Covid-19 Vaccine 30mcg/0.3ML Suspension Unknown Cyclobenzaprine HCL 10mg Tablets Althea Dahl, [employer] Ibuprofen 600mg Tablets Althea Dahl, [employer] History Medications No Active Medications Unknown - 11/04/2020 Immunizations Description No Information Available Vital Signs Date Vital Result Comment 07/13/2020 1:10pm Body Temperature 96.4 F Height 71.5 inches 5'11.50" Weight 276.00 lb BMI (Body Mass Index) 38.0 kg/m2 Results Description No Information Available Procedures Date Code Description Status 12/23/2020 54492 Office/Outpatient Established Lo w MDM 20-29 Min Completed 12/22/2020 92088 Manual Therapy Each 15 Minutes C ompleted 12/22/2020 02957 Hot Or Cold Packs Completed 12/22/2020 42374 Therapeutic Procedure, Each 15 M inutes Completed 12/17/2020 61416 Re-Eval Of PT Establ ished Plan Of Care 20Mins Face To Face PT/Fam Completed 12/17/2020 61486 Manual Therapy Each 15 Minutes C ompleted 12/17/2020 02132 Therapeutic Procedure, Each 15 M inutes Completed 12/17/2020 01968 Hot Or Cold Packs Completed 12/15/2020 44624 Manual Therapy Each 15 Minutes C ompleted 12/15/2020 75350 Therapeutic Procedure, Each 15 M inutes Completed 12/15/2020 69391 Hot Or Cold Packs Completed 12/11/2020 00975 Manual Therapy Each 15 Minutes C ompleted 12/11/2020 28895 Hot Or Cold Packs Completed 12/11/2020 50976 Therapeutic Procedure, Each 15 M inutes Completed 12/09/2020 71974 Manual Therapy Each 15 Minutes C ompleted 12/09/2020 09053 Therapeutic Procedure, Each 15 M inutes Completed 12/09/2020 42571 Hot Or Cold Packs Completed 12/04/2020 25932 Manual Therapy Each 15 Minutes C ompleted 12/04/2020 30409 Therapeutic Procedure, Each 15 M inutes Completed 12/02/2020 33511 Therapeutic Procedure, Each 15 M inutes Completed 12/02/2020 32136 Manual Therapy Each 15 Minutes C ompleted 11/27/2020 76009 Manual Therapy Each 15 Minutes C ompleted 11/27/2020 95242 Therapeutic Procedure, Each 15 M inutes Completed 11/27/2020 61011 Hot Or Cold Packs Completed 11/25/2020 04102 Manual Therapy Each 15 Minutes C ompleted 11/25/2020 63737 Therapeutic Procedure, Each 15 M inutes Completed 11/17/2020 11637 Re-Eval Of PT Establ ished Plan Of Care 20Mins Face To Face PT/Fam Completed 11/04/2020 89708 Office/Outpatient Established Lo w MDM 20-29 Min Completed 10/08/2020 37865 Manual Therapy Each 15 Minutes C ompleted 10/08/2020 15676 Therapeutic Procedure, Each 15 M inutes Completed 10/01/2020 58170 Manual Therapy Each 15 Minutes C ompleted 10/01/2020 67047 Hot Or Cold Packs Completed 10/01/2020 98326 Therapeutic Procedure, Each 15 M inutes Completed 09/23/2020 14099 Manual Therapy Each 15 Minutes C ompleted 09/23/2020 36877 Therapeutic Procedure, Each 15 M inutes Completed 09/23/2020 47893 Electrical Stimulati on Manual, Each 15 Min, Constant Attendance Completed 09/23/2020 88925 Hot Or Cold Packs Completed 09/21/2020 46014 Office/Outpatient Established Mo d MDM 30-39 Min Completed 09/21/2020 30498 Hot Or Cold Packs Completed 09/21/2020 33115 Electrical Stimulati on Manual, Each 15 Min, Constant Attendance Completed 09/21/2020 83122 Manual Therapy Each 15 Minutes C ompleted 09/21/2020 99763 Therapeutic Procedure, Each 15 M inutes Completed 09/17/2020 60399 Re-Eval Of PT Establ ished Plan Of Care 20Mins Face To Face PT/Fam Completed 09/17/2020 34820 Manual Therapy Each 15 Minutes C ompleted 09/17/2020 30878 Therapeutic Procedure, Each 15 M inutes Completed 09/17/2020 27654 Electrical Stimulati on Manual, Each 15 Min, Constant Attendance Completed 09/17/2020 96275 Hot Or Cold Packs Completed 09/15/2020 51023 Manual Therapy Each 15 Minutes C ompleted 09/15/2020 81620 Therapeutic Procedure, Each 15 M inutes Completed 09/15/2020 90393 Electrical Stimulati on Manual, Each 15 Min, Constant Attendance Completed 09/15/2020 33624 Hot Or Cold Packs Completed 09/11/2020 16324 Manual Therapy Each 15 Minutes C ompleted 09/11/2020 34745 Therapeutic Procedure, Each 15 M inutes Completed 09/11/2020 09981 Electrical Stimulati on Manual, Each 15 Min, Constant Attendance Completed 09/11/2020 84339 Hot Or Cold Packs Completed 09/09/2020 85154 Hot Or Cold Packs Completed 09/09/2020 28628 Electrical Stimulati on Manual, Each 15 Min, Constant Attendance Completed 09/09/2020 95283 Manual Therapy Each 15 Minutes C ompleted 09/09/2020 57453 Therapeutic Procedure, Each 15 M inutes Completed 08/24/2020 68609 Therapeutic Procedure, Each 15 M inutes Completed 08/24/2020 29655 Therapeutic Procedure, Each 15 M inutes Completed 08/24/2020 47465 Electrical Stimulati on Manual, Each 15 Min, Constant Attendance Completed 08/24/2020 42546 Hot Or Cold Packs Completed 08/19/2020 33592 Therapeutic Procedure, Each 15 M inutes Completed 08/19/2020 97683 Electrical Stimulati on Manual, Each 15 Min, Constant Attendance Completed 08/19/2020 37051 Hot Or Cold Packs Completed 08/14/2020 67256 Therapeutic Procedure, Each 15 M inutes Completed 08/14/2020 29927 Hot Or Cold Packs Completed 08/14/2020 57473 Electrical Stimulati on Manual, Each 15 Min, Constant Attendance Completed 08/10/2020 16087 Office/Outpatient Established Lo w MDM 20-29 Min Completed 08/07/2020 45416 Therapeutic Procedure, Each 15 M inutes Completed 08/07/2020 60869 Electrical Stimulati on Manual, Each 15 Min, Constant Attendance Completed 08/07/2020 77424 Hot Or Cold Packs Completed 07/29/2020 09140 Physical Therapy Eval - Low Comp lexity Completed 07/13/2020 14303 Office/Outpatient New Moderate M DM 45-59 Minutes Completed Medical Devices Description No Information Available Encounters Type Date Location Provider Dx Diagnosis Office Visit 12/23/2020 4:00p [place] S[facility] Cano S39.012D Strain of muscle, fascia and tendon of lower back, subs Office Visit 11/04/2020 4:30p [place] [facility] S39.012D Strain of muscle, fascia [...] of lower back, subsequent encounter [facility] Cano 12/22/2020 S39.012D Strain of muscle, fa scia and tendon of lower back, subsequent encounter Hiram Mooney P.T. 12/17/2020 S39.012D Strain of muscle, fa scia and tendon of lower back, subsequent encounter Natty M. Jonathanpa, [facility] 12/15/2020 S39.012D Strain of muscle, fa scia and tendon of lower back, subsequent encounter Natty M. Vespa, [facility] 12/11/2020 S39.012D Strain of muscle, fa scia and tendon of lower back, subsequent encounter Natty M. Vespa, [facility] 12/09/2020 S39.012D Strain of muscle, fa scia and tendon of lower back, subsequent encounter Hiram Mooney P.T. 12/04/2020 S39.012D Strain of muscle, fa scia and tendon of lower back, subsequent encounter Hiram Mooney P.T. 12/02/2020 S39.012D Strain of muscle, fa scia and tendon of lower back, subsequent encounter Natty M. Vespa, [facility] 11/27/2020 S39.012D Strain of muscle, fa scia and tendon of lower back, subsequent encounter Natty M. Vespa, [facility] 11/25/2020 S39.012D Strain of muscle, fa scia and tendon of lower back, subsequent encounter Natty M. Vespa, [facility] 11/17/2020 S39.012D Strain of muscle, fa scia and tendon of lower back, subsequent encounter Natty M. Vespa, [facility] 11/04/2020 S39.012D Strain of muscle, fa scia and tendon of lower back, subsequent encounter [facility] 10/08/2020 S39.012D Strain of muscle, fa scia and tendon of lower back, subsequent encounter Natty M. Vespa, [facility] 10/01/2020 S39.012D Strain of muscle, fa scia and tendon of lower back, subsequent encounter Natty M. Vespa, [facility] 09/23/2020 S39.012D Strain of muscle, fa scia and tendon of lower back, subsequent encounter Natty M. Vespa, [facility] 09/21/2020 S39.012D Strain of muscle, fa scia and tendon of lower back, subsequent encounter Natty M. Vespa, [facility] 09/21/2020 S39.012D Strain of muscle, fa scia and tendon of lower back, subsequent encounter Channing Malave MD 09/17/2020 S39.012D Strain of muscle, fa scia and tendon of lower back, subsequent encounter Natty Cross, [facility] 09/15/2020 S39.012D Strain of muscle, fa scia and tendon of lower back, subsequent encounter Nattygeorgette Cross, [facility] 09/11/2020 S39.012D Strain of muscle, fa scia and tendon of lower back, subsequent encounter Nattygeogrette Cross, [facility] 09/09/2020 S39.012D Strain of muscle, fa scia and tendon of lower back, subsequent encounter Nattygeorgette Cross, [facility] 08/24/2020 S39.012D Strain of muscle, fa scia and tendon of lower back, subsequent encounter Hiram Mooney P.T. 08/19/2020 S39.012D Strain of muscle, fa scia and tendon of lower back, subsequent encounter Natty Cross, [facility] 08/14/2020 S39.012D Strain of muscle, fa scia and tendon of lower back, subsequent encounter Nattygeorgette Cross, [facility] 08/10/2020 S39.012D Strain of muscle, fa scia and tendon of lower back, subsequent encounter Channing Malave MD 08/07/2020 S39.012D Strain of muscle, fa scia and tendon of lower back, subsequent encounter Natty Cross, [facility] 07/29/2020 S39.012D Strain of muscle, fa scia and tendon of lower back, subsequent encounter Natty Cross, [facility] 07/13/2020 S39.012A Strain of muscle, fa scia and tendon of lower back, initial encounter Channing Malave MD Plan of Treatment Future Appointment(s):* 01/28/2021 1:00 pm - [facility]o at [place] 12/23/2020 - [facility] Cano* S39.012D Strain of muscle, fascia and tendon of lower back, subsequent encounter Functional Status Description No Information Available Mental Status Description No Information Available Referrals Refer to Reason for Referral Status Appt Date Brianna Malave MD MRI LUMBAR SPINE OK TO [facility] P ER MTGS AND PER PAULINO OK TO [facility] FEE [facility]. PASSED TO JOMAR. Created [facility], [place] [id number] [phone] Brianna Malave MD PT LOW BACK WRITTEN AUTH PASSED TO PT DEPT. Created [address] [place] [address], [address] [address] [phone] Brianna Malave MD PT- LOW BACK OK TO [facility] 2ND SET. TRI AGED PT DEPT. Created [address] [place] [address], [address] [address] [phone] Kian Younger, PA-C PT LOW BACK OK TO [facility] 1ST SET PASSE D TO PT DEPT. Created [address] [place] [id number] [phone]
--- OUTSIDE RECORDS SUMMARY | 2021-03-15 09:54 | CCD ---
Author Author [facility] Organization [facility] Address Unknown Phone Unavailable Care Team Providers Care Route Process Administrator Name Role Phone DRAZEK, I BILLY PA Unavailable Unavailable DRAZEK, I BILLY PA Unavailable Unavailable DRAZEK, I BILLY PA Unavailable Unavailable DRAZEK, I BILLY PA Unavailable Unavailable DRAZEK, I BILLY PA Unavailable Unavailable DRAZEK, I BILLY PA Unavailable Unavailable DRAZEK, I BILLY PA Unavailable Unavailable DRAZEK, I BILLY PA Unavailable Unavailable DRAZEK, I BILLY PA Unavailable Unavailable DRAZEK, I BILLY PA Unavailable Unavailable DRAZEK, I BILLY PA Unavailable Unavailable DRAZEK, I BILLY PA Unavailable Unavailable DRAZEK, I BILLY PA Unavailable Unavailable DRAZEK, I BILLY PA Unavailable Unavailable DRAZEK, I BILLY PA Unavailable Unavailable DRAZEK, I BILLY PA Unavailable Unavailable DRAZEK, I BILLY PA Unavailable Unavailable DRAZEK, I BILLY PA Unavailable Unavailable DRAZEK, I BILLY PA Unavailable Unavailable DRAZEK, I BILLY PA Unavailable Unavailable DRAZEK, I BILLY PA Unavailable Unavailable DRAZEK, I BILLY PA Unavailable Unavailable DRAZEK, I BILLY PA Unavailable Unavailable DRAZEK, I BILLY PA Unavailable Unavailable DRAZEK, I BILLY PA Unavailable Unavailable DRAZEK, I BILLY PA Unavailable Unavailable DRAZEK, I BILLY PA Unavailable Unavailable DRAZEK, I BILLY PA Unavailable Unavailable DRAZEK, I BILLY PA Unavailable Unavailable DRKIMBERLEE, I BILLY PA Unavailable Unavailable VanBrianna nava MD Unavailable Unavailable VaneenkrystenamBrianna MD Unavailable Unavailable VaneenenaamBrianna MD Unavailable Unavailable VaneenenaamBrianna MD Unavailable Unavailable VaneenkrystenamBrianna MD Unavailable Unavailable VanBrianna nava MD Unavailable Unavailable VanderrickamBrianna MD Unavailable Unavailable VaneenkrystenamBrianna MD Unavailable Unavailable VaneenkrystenamBrianna MD Unavailable Unavailable VaneenenaamBrianna MD Unavailable Unavailable VaneenenaamBrianna MD Unavailable Unavailable VaneenBrianna suazo MD Unavailable Unavailable VanBrianna nava MD Unavailable Unavailable VanderrickamBrianna MD Unavailable Unavailable Vanderrickam, Brianna Greenberg MD Unavailable Unavailable VanBrianna nava MD Unavailable Unavailable VanBrianna nava MD Unavailable Unavailable Brianna Malave MD Unavailable Unavailable Brianna Malave MD Unavailable Unavailable VanBrianna nava MD Unavailable Unavailable VanBrianna nava MD Unavailable Unavailable VanBrianna nava MD Unavailable Unavailable VanBrianna nava MD Unavailable Unavailable Brianna Malave MD Unavailable Unavailable Brianna Malave MD Unavailable Unavailable Brianna Malave MD Unavailable Unavailable Brianna Malave MD Unavailable Unavailable Brianna Malave MD Unavailable Unavailable Brianna Malave MD Unavailable Unavailable Brianna Malave MD Unavailable Unavailable Brianna Malave MD Unavailable Unavailable VanBrianna nava MD Unavailable Unavailable Brianna Malave MD Unavailable Unavailable VanBrianna nava MD Unavailable Unavailable Brianna Malave MD Unavailable Unavailable VanBrianna nava MD Unavailable Unavailable Brianna Malave MD Unavailable Unavailable Brianna Malave MD Unavailable Unavailable Brianna Malave MD Unavailable Unavailable Brianna Malave MD Unavailable Unavailable Brianna Malave MD Unavailable Unavailable Brianna Malave MD Unavailable Unavailable Brianna Malave MD Unavailable Unavailable Brianna Malave MD Unavailable Unavailable Brianna Malave MD Unavailable Unavailable Brianna Malave MD Unavailable Unavailable Re-disclosure Warning The records that you are [...] is protected by Article 27-F of the [facility] [place] Public Health law. If you continue you may have access to information: Regarding HIV / AIDS; Provided by facilities licensed or operated by the [facility] Office of Mental Health; or Provided by the [facility] Office for People With Developmental Disabilities. If such information is present, then the following [facility] mandated warning applies: This information has been [...] law may result in a fine or mcc sentence or both. A general authorization for the release of medical or other information is NOT sufficient authorization for further disc losure. Encounters Encounter Providers Location Date Indications Data Source(s ) OFFICE OUTPATIENT VISIT 15 MINUTES Attender: BILLY RUIZ Phys ical Therapy 02/23/2021 04:00:00 PM EDT [facility] ([facility]) OFFICE OUTPATIENT VISIT 15 MINUTES Attender: BILLY RUIZ Phys ical Therapy 01/28/2021 01:00:00 PM EDT [facility] ([facility]) OFFICE OUTPATIENT VISIT 15 MINUTES Attender: BILLY RUIZ Phys ical Therapy 12/23/2020 04:00:00 PM EDT [facility] ([facility]) OFFICE OUTPATIENT VISIT 15 MINUTES Attender: BILLY RUIZ Phys ical Therapy 11/04/2020 04:30:00 PM EDT [facility] ([facility]) Outpatient Attender: Brianna Malave MD Physical Therap y 09/21/2020 01:00:00 PM EDT [facility] ([facility]) OFFICE OUTPATIENT VISIT 15 MINUTES Attender: Brianna vincent MD Physical Therapy 08/10/2020 01:00:00 PM EDT [facility] ([facility]) Outpatient Attender: Brianna Malave MD Physical Therap y 07/13/2020 12:00:00 PM EST [facility] ([facility]) Immunizations Vaccine Date Status Description Data Source(s) COVID-19 VACCINE Pfizer 06/16/2020 12:00:00 AM EST completed [facility] Vaccine Series Complete: YESThis Data wa s Submitted to [facility]. COVID-19 VACCINE Pfizer 05/26/2020 12:00:00 AM EST completed [facility] Vaccine Series Complete: NOThis Data was Submitted to [facility]. Medications Medication Brand Name Start Date Product Form Dose Route Admi nistrative Instructions Pharmacy Instructions Status Indications Reaction Description Data Source(s) No Active Medications 07/13/2020 12:00:00 AM EST completed [facility] ([facility]) Cyclobenzaprine hydrochloride 10 MG Oral Tablet CYCLOBENZAPR [...] type / Coverage type Policy ID Covered constitution party ID Covered constitution party's relationship to linder Policy Linder Plan Information PMA MANAGEMENT [facility] [id number] SP [id number] PMA [employer] [facility] [id number] SP [id number] SELF PAY SELF PAY ONLY [id number] SP [id number] Problems, Conditions, and Diagnoses No Information Surgeries/Procedures Procedure Description Date Indications Data Source(s) OFFICE OUTPATIENT VISIT 15 MINUTES 02/23/2021 12:00:00 AM EDT [facility] ([facility]) OFFICE OUTPATIENT VISIT 15 MINUTES 01/28/2021 12:00:00 AM EDT [facility] ([facility]) OFFICE OUTPATIENT VISIT 15 MINUTES 12/23/2020 12:00:00 AM EDT [facility] ([facility]) APPLICATION MODALITY 1/> AREAS HOT/COLD PACKS 12/23/19 12:00:00 AM EDT [facility] ([facility]) THERAPEUTIC PX 1/> AREAS EACH 15 MIN EXERCISES 12:00:00 AM EDT [facility] ([facility]) MANUAL THERAPY TQS 1/> REGIONS EACH 15 MINUTES 12:00:00 AM EDT [facility] ([facility]) APPLICATION MODALITY 1/> AREAS HOT/COLD PACKS 12/18/19 12:00:00 AM EDT [facility] ([facility]) THERAPEUTIC PX 1/> AREAS EACH 15 MIN EXERCISES 12:00:00 AM EDT [facility] ([facility]) MANUAL THERAPY TQS 1/> REGIONS EACH 15 MINUTES 12:00:00 AM EDT [facility] ([facility]) Re-Eval Of PT Established Plan Of Care 20Mins Face To Face P T/Fam 12/17/2020 12:00:00 AM EDT [facility] ([facility]) APPLICATION MODALITY 1/> AREAS HOT/COLD PACKS 12/16/19 12:00:00 AM EDT [facility] ([facility]) THERAPEUTIC PX 1/> AREAS EACH 15 MIN EXERCISES 12:00:00 AM EDT [facility] ([facility]) MANUAL THERAPY TQS 1/> REGIONS EACH 15 MINUTES 12:00:00 AM EDT [facility] ([facility]) APPLICATION MODALITY 1/> AREAS HOT/COLD PACKS 12/12/19 12:00:00 AM EDT [facility] ([facility]) THERAPEUTIC PX 1/> AREAS EACH 15 MIN EXERCISES 12:00:00 AM EDT [facility] ([facility]) MANUAL THERAPY TQS 1/> REGIONS EACH 15 MINUTES 12:00:00 AM EDT [facility] ([facility]) THERAPEUTIC PX 1/> AREAS EACH 15 MIN EXERCISES 07/21/2 021 12:00:00 AM EDT [facility] ([facility]) APPLICATION MODALITY 1/> AREAS HOT/COLD PACKS 12/10/19 12:00:00 AM EDT [facility] ([facility]) MANUAL THERAPY TQS 1/> REGIONS EACH 15 MINUTES 12:00:00 AM EDT [facility] ([facility]) THERAPEUTIC PX 1/> AREAS EACH 15 MIN EXERCISES 12:00:00 AM EDT [facility] ([facility]) MANUAL THERAPY TQS 1/> REGIONS EACH 15 MINUTES 12:00:00 AM EDT [facility] ([facility]) THERAPEUTIC PX 1/> AREAS EACH 15 MIN EXERCISES 12:00:00 AM EDT [facility] ([facility]) MANUAL THERAPY TQS 1/> REGIONS EACH 15 MINUTES 12:00:00 AM EDT [facility] ([facility]) APPLICATION MODALITY 1/> AREAS HOT/COLD PACKS 11/28/19 12:00:00 AM EDT [facility] ([facility]) THERAPEUTIC PX 1/> AREAS EACH 15 MIN EXERCISES 12:00:00 AM EDT [facility] ([facility]) MANUAL THERAPY TQS 1/> REGIONS EACH 15 MINUTES 12:00:00 AM EDT [facility] ([facility]) THERAPEUTIC PX 1/> AREAS EACH 15 MIN EXERCISES 12:00:00 AM EDT [facility] ([facility]) MANUAL THERAPY TQS 1/> REGIONS EACH 15 MINUTES 12:00:00 AM EDT [facility] ([facility]) Re-Eval Of PT Established Plan Of Care 20Mins Face To Face P T/Fam 11/17/2020 12:00:00 AM EDT [facility] ([facility]) OFFICE OUTPATIENT VISIT 15 MINUTES 11/04/2020 12:00:00 AM EDT [facility] ([facility]) THERAPEUTIC PX 1/> AREAS EACH 15 MIN EXERCISES 021 12:00:00 AM EDT [facility] ([facility]) MANUAL THERAPY TQS 1/> REGIONS EACH 15 MINUTES 021 12:00:00 AM EDT [facility] ([facility]) APPLICATION MODALITY 1/> AREAS HOT/COLD PACKS 10/02/19 21 12:00:00 AM EDT [facility] ([facility]) THERAPEUTIC PX 1/> AREAS EACH 15 MIN EXERCISES 021 12:00:00 AM EDT [facility] ([facility]) MANUAL THERAPY TQS 1/> REGIONS EACH 15 MINUTES 021 12:00:00 AM EDT [facility] ([facility]) APPLICATION MODALITY 1/> AREAS HOT/COLD PACKS 09/24/19 21 12:00:00 AM EDT [facility] ([facility]) APPL MODALITY 1/> AREAS ELEC STIMJ EA 15 MIN 12:00:00 AM EDT [facility] ([facility]) THERAPEUTIC PX 1/> AREAS EACH 15 MIN EXERCISES 021 12:00:00 AM EDT [facility] ([facility]) MANUAL THERAPY TQS 1/> REGIONS EACH 15 MINUTES 021 12:00:00 AM EDT [facility] ([facility]) APPLICATION MODALITY 1/> AREAS HOT/COLD PACKS 09/22/19 21 12:00:00 AM EDT [facility] ([facility]) APPL MODALITY 1/> AREAS ELEC STIMJ EA 15 MIN 12:00:00 AM EDT [facility] ([facility]) THERAPEUTIC PX 1/> AREAS EACH 15 MIN EXERCISES 021 12:00:00 AM EDT [facility] ([facility]) MANUAL THERAPY TQS 1/> REGIONS EACH 15 MINUTES 021 12:00:00 AM EDT [facility] ([facility]) OFFICE OUTPATIENT VISIT 25 MINUTES 09/21/2020 12:00:00 AM EDT [facility] ([facility]) Re-Eval Of PT Established Plan Of Care 20Mins Face To Face P T/Fam 09/17/2020 12:00:00 AM EDT [facility] ([facility]) MANUAL THERAPY TQS 1/> REGIONS EACH 15 MINUTES 021 12:00:00 AM EDT [facility] ([facility]) APPL MODALITY 1/> AREAS ELEC STIMJ EA 15 MIN 04/29/202 1 12:00:00 AM EDT [facility] ([facility]) APPLICATION MODALITY 1/> AREAS HOT/COLD PACKS 09/18/19 12:00:00 AM EDT [facility] ([facility]) THERAPEUTIC PX 1/> AREAS EACH 15 MIN EXERCISES 021 12:00:00 AM EDT [facility] ([facility]) APPLICATION MODALITY 1/> AREAS HOT/COLD PACKS 09/16/19 12:00:00 AM EDT [facility] ([facility]) APPL MODALITY 1/> AREAS ELEC STIMJ EA 15 MIN 1 12:00:00 AM EDT [facility] ([facility]) THERAPEUTIC PX 1/> AREAS EACH 15 MIN EXERCISES 021 12:00:00 AM EDT [facility] ([facility]) MANUAL THERAPY TQS 1/> REGIONS EACH 15 MINUTES 021 12:00:00 AM EDT [facility] ([facility]) APPLICATION MODALITY 1/> AREAS HOT/COLD PACKS 09/12/19 12:00:00 AM EDT [facility] ([facility]) APPL MODALITY 1/> AREAS ELEC STIMJ EA 15 MIN 12:00:00 AM EDT [facility] ([facility]) THERAPEUTIC PX 1/> AREAS EACH 15 MIN EXERCISES 021 12:00:00 AM EDT [facility] ([facility]) MANUAL THERAPY TQS 1/> REGIONS EACH 15 MINUTES 021 12:00:00 AM EDT [facility] ([facility]) APPLICATION MODALITY 1/> AREAS HOT/COLD PACKS 09/10/19 21 12:00:00 AM EDT [facility] ([facility]) APPL MODALITY 1/> AREAS ELEC STIMJ EA 15 MIN 1 12:00:00 AM EDT [facility] ([facility]) THERAPEUTIC PX 1/> AREAS EACH 15 MIN EXERCISES 021 12:00:00 AM EDT [facility] ([facility]) MANUAL THERAPY TQS 1/> REGIONS EACH 15 MINUTES 021 12:00:00 AM EDT [facility] ([facility]) APPLICATION MODALITY 1/> AREAS HOT/COLD PACKS 08/25/19 21 12:00:00 AM EDT [facility] ([facility]) APPL MODALITY 1/> AREAS ELEC STIMJ EA 15 MIN 1 12:00:00 AM EDT [facility] ([facility] THERAPEUTIC PX 1/> AREAS EACH 15 MIN EXERCISES 021 12:00:00 AM EDT [facility] ([facility] THERAPEUTIC PX 1/> AREAS EACH 15 MIN EXERCISES 12:00:00 AM EDT [facility] ([facility] APPL MODALITY 1/> AREAS ELEC STIMJ EA 15 MIN 12:00:00 AM EDT [facility] ([facility] APPLICATION MODALITY 1/> AREAS HOT/COLD PACKS 08/20/19 21 12:00:00 AM EDT [facility] ([facility] THERAPEUTIC PX 1/> AREAS EACH 15 MIN EXERCISES 021 12:00:00 AM EDT [facility] ([facility] APPLICATION MODALITY 1/> AREAS HOT/COLD PACKS 08/15/19 21 12:00:00 AM EDT [facility] ([facility] APPL MODALITY 1/> AREAS ELEC STIMJ EA 15 MIN 12:00:00 AM EDT [facility] ([facility] ) THERAPEUTIC PX 1/> AREAS EACH 15 MIN EXERCISES 12:00:00 AM EDT [facility] ([facility] ) OFFICE OUTPATIENT VISIT 15 MINUTES 08/10/2020 12:00:00 AM EDT [facility] ([facility] ) APPLICATION MODALITY 1/> AREAS HOT/COLD PACKS 08/08/19 21 12:00:00 AM EDT [facility] ([facility]) APPL MODALITY 1/> AREAS ELEC STIMJ EA 15 MIN 12:00:00 AM EDT [facility] ([facility] THERAPEUTIC PX 1/> AREAS EACH 15 MIN EXERCISES 021 12:00:00 AM EDT [facility] ([facility] Physical Therapy Eval - Low Complexity 07/29/2020 12:0 0:00 AM EST [facility] ([facility] ) OFFICE OUTPATIENT NEW 45 MINUTES 07/13/2020 12:00:00 A M EST [facility] ([facility] ) Results ID Date Data Source [id number] 03/02/2021 12:00:00 AM EDT [facility] Name Value Range Interpretation Code Description Data Trupti rce(s) Supporting Document(s) SARS coronavirus 2 Ag NEGATIVE [facility] This lab was ordered by [facility] and reported by [facility]. ID Date Data Source [id number] 02/23/2021 12:00:00 AM EDT [facility] Name Value Range Interpretation Code Description Data Trupti rce(s) Supporting Document(s) SARS coronavirus 2 Ag NEGATIVE [facility] This lab was ordered by [facility] and reported by [facility]. ID Date Data Source [id number] 02/16/2021 12:00:00 AM EDT [facility] Name Value Range Interpretation Code Description Data Trupti rce(s) Supporting Document(s) SARS coronavirus 2 Ag NEGATIVE [facility] This lab was ordered by [facility] and reported by [facility]. ID Date Data Source [id number] 02/09/2021 12:00:00 AM EDT [facility] Name Value Range Interpretation Code Description Data Trupti rce(s) Supporting Document(s) SARS coronavirus 2 Ag NEGATIVE [facility] This lab was ordered by [facility] and reported by [facility]. ID Date Data Source [id number] 01/28/2021 12:00:00 AM EDT [facility] Name Value Range Interpretation Code Description Data Trupti rce(s) Supporting Document(s) SARS coronavirus 2 Ag NEGATIVE [facility] This lab was ordered by [facility] and reported by [facility]. ID Date Data Source [id number] 10/29/2020 12:00:00 AM EDT [facility] Name Value Range Interpretation Code Description Data Trupti rce(s) Supporting Document(s) SARS coronavirus 2 Ag NEGATIVE [facility] This lab was ordered by [facility] and reported by [facility]. ID Date Data Source [id number] 10/27/2020 12:00:00 AM EDT [facility] Name Value Range Interpretation Code Description Data Trupti rce(s) Supporting Document(s) SARS coronavirus 2 Ag NEGATIVE [facility] This lab was ordered by [facility] and reported by [facility]. ID Date Data Source [id number] 10/23/2020 12:00:00 AM EDT [facility] Name Value Range Interpretation Code Description Data Trupti rce(s) Supporting Document(s) SARS coronavirus 2 Ag NEGATIVE [facility] This lab was ordered by [facility] and reported by [facility]. ID Date Data Source [id number] 10/20/2020 12:00:00 AM EDT [facility] Name Value Range Interpretation Code Description Data Trupti rce(s) Supporting Document(s) SARS coronavirus 2 Ag NEGATIVE [facility] This lab was ordered by [facility] and reported by [facility]. ID Date Data Source [id number] 10/15/2020 12:00:00 AM EDT [facility] Name Value Range Interpretation Code Description Data Trupti rce(s) Supporting Document(s) SARS coronavirus 2 Ag NEGATIVE [facility] This lab was ordered by [facility] and reported by [facility]. ID Date Data Source [id number] 10/12/2020 12:00:00 AM EDT [facility] Name Value Range Interpretation Code Description Data Trupti rce(s) Supporting Document(s) SARS coronavirus 2 Ag NEGATIVE [facility] This lab was ordered by [facility] and reported by [facility]. ID Date Data Source [id number] 10/05/2020 09:05:00 AM EDT [facility] Name Value Range Interpretation Code Description Data Trupti rce(s) Supporting Document(s) SARS-CoV-2 (COVID-19) RNA [Presence] in Respiratory specimen by LISANDRA with probe detection Not Detected [facility] This lab was ordered by [facility] and reported by [facility]. ID Date Data Source [id number] 10/01/2020 12:00:00 AM EDT [facility] Name Value Range Interpretation Code Description Data Trupti rce(s) Supporting Document(s) SARS coronavirus 2 Ag NEGATIVE [facility] This lab was ordered by [facility] and reported by [facility]. ID Date Data Source [id number] 09/28/2020 12:00:00 AM EDT [facility] Name Value Range Interpretation Code Description Data Trupti rce(s) Supporting Document(s) SARS coronavirus 2 Ag NEGATIVE [facility] This lab was ordered by [facility] and reported by [facility]. ID Date Data Source [id number] 09/24/2020 12:00:00 AM EDT [facility] Name Value Range Interpretation Code Description Data Trupti rce(s) Supporting Document(s) SARS coronavirus 2 Ag NEGATIVE [facility] This lab was ordered by [facility] and reported by [facility]. ID Date Data Source [id number] 09/21/2020 12:00:00 AM EDT [facility] Name Value Range Interpretation Code Description Data Trupti rce(s) Supporting Document(s) SARS coronavirus 2 Ag NEGATIVE [facility] This lab was ordered by [facility] and reported by [facility]. ID Date Data Source [id number] 09/17/2020 12:00:00 AM EDT [facility] Name Value Range Interpretation Code Description Data Trupti rce(s) Supporting Document(s) SARS coronavirus 2 Ag NEGATIVE [facility] This lab was ordered by [facility] and reported by [facility]. ID Date Data Source [id number] 07/13/2020 11:20:00 AM EST [facility] Name Value Range Interpretation Code Description Data Trupti rce(s) Supporting Document(s) SARS coronavirus 2 RNA Not Detected [facility] This lab was ordered by [facility] and reported by [facility]. ID Date Data Source [id number] 07/09/2020 12:00:00 AM EST [facility] Name Value Range Interpretation Code Description Data Trupti rce(s) Supporting Document(s) SARS coronavirus 2 Ag NEGATIVE [facility] This lab was ordered by [facility] and reported by [facility]. ID Date Data Source [id number] 07/06/2020 02:56:00 PM EST [facility] Name Value Range Interpretation Code Description Data Trupti rce(s) Supporting Document(s) SARS coronavirus 2 RNA Not Detected [facility] [place] This lab was ordered by [facility] and reported by [facility]. ID Date Data Source [id number] 07/02/2020 12:00:00 AM EST [facility] Name Value Range Interpretation Code Description Data Trupti rce(s) Supporting Document(s) SARS coronavirus 2 Ag NEGATIVE [facility] This lab was ordered by [facility] and reported by [facility]. ID Date Data Source [id number] 06/29/2020 02:00:00 PM EST [facility] Name Value Range Interpretation Code Description Data Trupti rce(s) Supporting Document(s) SARS coronavirus 2 RNA Not Detected [facility] [place] This lab was ordered by [facility] and reported by [facility]. ID Date Data Source [id number] 06/25/2020 12:00:00 AM EST [facility] Name Value Range Interpretation Code Description Data Trupti rce(s) Supporting Document(s) SARS coronavirus 2 Ag [facility] This lab was ordered by [facility] and reported by [facility]. ID Date Data Source [id number] 06/22/2020 02:30:00 PM EST [facility] Name Value Range Interpretation Code Description Data Trupti rce(s) Supporting Document(s) SARS coronavirus 2 RNA Not Detected [facility] [place] This lab was ordered by [facility] and reported by [facility]. ID Date Data Source [id number] 06/18/2020 12:00:00 AM EST [facility] Name Value Range Interpretation Code Description Data Trupti rce(s) Supporting Document(s) SARS coronavirus 2 Ag NEGATIVE [facility] This lab was ordered by [facility] and reported by [facility]. ID Date Data Source [id number] 06/15/2020 08:00:00 AM EST [facility] Name Value Range Interpretation Code Description Data Trupti rce(s) Supporting Document(s) SARS coronavirus 2 RNA Not Detected [facility] [place] This lab was ordered by [facility] and reported by [facility]. ID Date Data Source [id number] 06/11/2020 12:00:00 AM EST [facility] Name Value Range Interpretation Code Description Data Trupti rce(s) Supporting Document(s) SARS coronavirus 2 Ag Negative [facility] This lab was ordered by [facility] and reported by [facility]. ID Date Data Source [id number] 06/04/2020 12:00:00 AM EST [facility] Name Value Range Interpretation Code Description Data Trupti rce(s) Supporting Document(s) SARS-CoV2 Rapid Antigen Negative [facility] This lab was ordered by [facility] and reported by [facility]. ID Date Data Source [id number] 06/01/2020 10:57:00 AM EST [facility] Name Value Range Interpretation Code Description Data Trupti rce(s) Supporting Document(s) SARS coronavirus 2 RNA Not Detected [facility] [place] This lab was ordered by [facility] and reported by [facility]. ID Date Data Source [id number] 05/25/2020 11:30:00 AM EST [facility] Name Value Range Interpretation Code Description Data Trupti rce(s) Supporting Document(s) SARS coronavirus 2 RNA Not Detected [facility] [place] This lab was ordered by [facility] and reported by [facility]. ID Date Data Source [id number] 05/18/2020 02:36:00 PM EST [facility] Name Value Range Interpretation Code Description Data Trupti rce(s) Supporting Document(s) SARS coronavirus 2 RNA [facility] This lab was ordered by [facility] and reported by [facility]. ID Date Data Source [id number] 05/12/2020 01:45:00 PM EST [facility] Name Value Range Interpretation Code Description Data Trupti rce(s) Supporting Document(s) SARS coronavirus 2 RNA [facility] This lab was ordered by [facility] and reported by [facility]. ID Date Data Source [id number] 05/12/2020 12:00:00 AM EST [facility] Name Value Range Interpretation Code Description Data Trupti rce(s) Supporting Document(s) SARS-CoV2 Rapid Antigen [facility] This lab was ordered by [facility] and reported by [facility]. ID Date Data Source [id number] 04/30/2020 03:10:00 PM EST [facility] Name Value Range Interpretation Code Description Data Trupti rce(s) Supporting Document(s) SARS coronavirus 2 RNA [Presence] in Res piratory specimen by LISANDRA with probe detection [facility] This lab was ordered by [facility] a nd reported by [facility]. ID Date Data Source [id number] 04/24/2020 01:40:00 PM EST [facility] Name Value Range Interpretation Code Description Data Trupti rce(s) Supporting Document(s) SARS coronavirus 2 RNA [facility] This lab was ordered by [facility] and reported by [facility]. ID Date Data Source [id number] 04/20/2020 07:27:00 AM EST [facility] Name Value Range Interpretation Code Description Data Trupti rce(s) Supporting Document(s) SARS coronavirus 2 RNA [facility] This lab was ordered by [facility] and reported by [facility]. ID Date Data Source [id number] 04/15/2020 12:00:00 AM EST [facility] Name Value Range Interpretation Code Description Data Trupti rce(s) Supporting Document(s) SARS-CoV2 Rapid Antigen [facility] This lab was ordered by [facility] and reported by [facility]. ID Date Data Source [id number] 04/03/2020 09:35:00 AM EST [facility] Name Value Range Interpretation Code Description Data Trupti rce(s) Supporting Document(s) SARS coronavirus 2 RNA [facility] This lab was ordered by [facility] and reported by [facility]. ID Date Data Source [id number] 03/30/2020 03:00:00 PM EST [facility] Name Value Range Interpretation Code Description Data Trupti rce(s) Supporting Document(s) SARS coronavirus 2 RNA [facility] This lab was ordered by [facility] and reported by [facility]. ID Date Data Source [id number] 03/23/2020 02:00:00 PM EST [facility] Name Value Range Interpretation Code Description Data Trupti rce(s) Supporting Document(s) SARS coronavirus 2 RNA [facility] This lab was ordered by [facility] and reported by [facility]. ID Date Data Source [id number] 03/16/2020 10:30:00 AM EDT [facility] Name Value Range Interpretation Code Description Data Trupti rce(s) Supporting Document(s) SARS coronavirus 2 RNA [facility] This lab was ordered by [facility] and reported by [facility]. ID Date Data Source [id number] 03/09/2020 10:28:00 AM EDT [facility] Name Value Range Interpretation Code Description Data Trupti rce(s) Supporting Document(s) SARS coronavirus 2 RNA [facility] This lab was ordered by [facility] and reported by [facility]. ID Date Data Source [id number] 03/02/2020 08:00:00 AM EDT [facility] Name Value Range Interpretation Code Description Data Trupti rce(s) Supporting Document(s) SARS coronavirus 2 RNA [facility] This lab was ordered by [facility] and reported by [facility]. ID Date Data Source [id number] 02/24/2020 12:00:00 PM EDT [facility] Name Value Range Interpretation Code Description Data Trupti rce(s) Supporting Document(s) SARS coronavirus 2 RNA [facility] This lab was ordered by [facility] and reported by [facility]. ID Date Data Source [id number] 02/10/2020 02:00:00 PM EDT [facility] Name Value Range Interpretation Code Description Data Trupti rce(s) Supporting Document(s) SARS coronavirus 2 RNA [facility] This lab was ordered by [facility] and reported by [facility]. ID Date Data Source [id number] 02/03/2020 10:00:00 AM EDT [facility] Name Value Range Interpretation Code Description Data Trupti rce(s) Supporting Document(s) SARS coronavirus 2 RNA [facility] This lab was ordered by [facility] and reported by [facility]. ID Date Data Source [id number] 01/29/2020 12:00:00 PM EDT [facility] Name Value Range Interpretation Code Description Data Trupti rce(s) Supporting Document(s) SARS coronavirus 2 RNA [facility] This lab was ordered by [facility] and reported by [facility]. ID Date Data Source [id number] 01/20/2020 02:48:00 PM EDT [facility] Name Value Range Interpretation Code Description Data Trupti rce(s) Supporting Document(s) SARS coronavirus 2 RNA [facility] This lab was ordered by [facility] and reported by [facility]. Procedure Social History No Information Vital Signs ID Date Data Source UNK Name Value Range Interpretation Code Description Data Source(s) Body temperature 96.4 [degF] 96.4 [degF] JASON ([facility] ) Body height 71.5 [in_i] 71.5 [in_i] JASON ([facility] ) 5'11.50" Body weight 276.00 [lb_av] 276.00 [lb_av] VIVIANE Hagen ([facility] ) Body mass index (BMI) [Ratio] 38.0 kg/m2 38.0 k g/m2 JASON ([facility] )
--- OUTSIDE RECORDS SUMMARY | 2021-03-15 11:57 | CCD ---
Author Author [facility] Organization [facility] Address Unknown Phone Unavailable Care Team Providers Care Skilled Laborer Name Role Phone DRAZEK, I BILLY PA [...] Unavailable Unavailable Brianna Malave MD Unavailable Unavailable Biranna Malave MD Unavailable Unavailable Brianna Malave MD [...] is protected by Article 27-F of the [facility] Public Health law. If you continue you may have access to information: Regarding HIV / AIDS; Provided by facilities licensed or operated by the [facility] Office of Mental Health; or Provided by the [facility] Office for People With Developmental Disabilities. If such information is present, then the following [facility] mandated warning applies: This information has been [...] law may result in a fine or assisted sentence or both. A general authorization for the release of medical or other information is NOT sufficient authorization for further disc losure. Encounters Encounter Providers Location Date Indications Data Source(s ) OFFICE OUTPATIENT VISIT 15 MINUTES Attender: BILLY RUIZ Phys ical Therapy 02/23/2021 04:00:00 PM EDT [facility] ([facility]) OFFICE OUTPATIENT VISIT 15 MINUTES Attender: BILLY RUIZ Phys ical Therapy 01/28/2021 01:00:00 PM EDT [facility] ([facility]) OFFICE OUTPATIENT VISIT 15 MINUTES Attender: BILLY RUIZ Phys ical Therapy 12/23/2020 04:00:00 PM EDT [facility] ([facility]) OFFICE OUTPATIENT VISIT 15 MINUTES Attender: BILLY RUIZ Phys ical Therapy 11/04/2020 04:30:00 PM EDT [facility] ([facility]) Outpatient Attender: Brianna Malave MD Physical Therap y 09/21/2020 01:00:00 PM EDT [facility] ([facility]) OFFICE OUTPATIENT VISIT 15 MINUTES Attender: Brianna vincent MD Physical Therapy 08/10/2020 01:00:00 PM EDT [facility] ([facility]) Outpatient Attender: Brianna Malave MD Physical Therap y 07/13/2020 12:00:00 PM EST [facility] ([facility]) Immunizations Vaccine Date Status Description Data Source(s) COVID-19 VACCINE Pfizer 06/16/2020 12:00:00 AM EST completed [facility] Vaccine Series Complete: YESThis Data wa s Submitted to [facility] Via [email or web address]. COVID-19 VACCINE Pfizer 05/26/2020 12:00:00 AM EST completed [facility] Vaccine Series Complete: NOThis Data was Submitted to [facility] Via [email or web address]. Medications Medication Brand Name Start Date Product Form Dose Route Admi nistrative Instructions Pharmacy Instructions Status Indications Reaction Description Data Source(s) No Active Medications 07/13/2020 12:00:00 AM EST completed [facility] ([facility]) Cyclobenzaprine hydrochloride 10 MG [...] type / Coverage type Policy ID Covered libertarian ID Covered libertarian's relationship to linder Policy Linder Plan Information PMA MANAGEMENT [facility] [id number] SP [id number] PMA MANA[employer] [facility] [id number] SP [id number] SELF PAY SELF PAY ONLY [id number] SP [id number] Problems, Conditions, and Diagnoses No Information Surgeries/Procedures Procedure Description Date Indications Data Source(s) OFFICE OUTPATIENT VISIT 15 MINUTES 02/23/2021 12:00:00 AM EDT [facility] ([facility]) OFFICE OUTPATIENT VISIT 15 MINUTES 01/28/2021 12:00:00 AM EDT [facility] ([facility]) OFFICE OUTPATIENT VISIT 15 MINUTES 12/23/2020 12:00:00 AM EDT [facility] ([facility]) APPLICATION MODALITY 1/> AREAS HOT/COLD PACKS 12/23/19 12:00:00 AM EDT [facility] ([facility]) THERAPEUTIC PX 1/> AREAS EACH 15 MIN EXERCISES 12:00:00 AM EDT [facility] ([facility]) MANUAL THERAPY TQS 1/> REGIONS EACH 15 MINUTES 12:00:00 AM EDT [facility] ([facility]) APPLICATION MODALITY 1/> AREAS HOT/COLD PACKS 12/18/19 12:00:00 AM EDT [facility] ([facility]) THERAPEUTIC PX 1/> AREAS EACH 15 MIN EXERCISES 12:00:00 AM EDT [facility] ([facility]) MANUAL THERAPY TQS 1/> REGIONS EACH 15 MINUTES 12:00:00 AM EDT [facility] ([facility]) Re-Eval Of PT Established Plan Of Care 20Mins Face To Face P T/Fam 12/17/2020 12:00:00 AM EDT [facility] ([facility]) APPLICATION MODALITY 1/> AREAS HOT/COLD PACKS 12/16/19 12:00:00 AM EDT [facility] ([facility]) THERAPEUTIC PX 1/> AREAS EACH 15 MIN EXERCISES 12:00:00 AM EDT [facility] ([facility]) MANUAL THERAPY TQS 1/> REGIONS EACH 15 MINUTES 12:00:00 AM EDT [facility] ([facility]) APPLICATION MODALITY 1/> AREAS HOT/COLD PACKS 12/12/19 12:00:00 AM EDT [facility] ([facility]) THERAPEUTIC PX 1/> AREAS EACH 15 MIN EXERCISES 12:00:00 AM EDT [facility] ([facility]) MANUAL THERAPY TQS 1/> REGIONS EACH 15 MINUTES 12:00:00 AM EDT [facility] ([facility]) THERAPEUTIC PX 1/> AREAS EACH 15 MIN EXERCISES 07/21/2 021 12:00:00 AM EDT [facility] ([facility]) APPLICATION MODALITY 1/> AREAS HOT/COLD PACKS 12/10/19 12:00:00 AM EDT [facility] ([facility]) MANUAL THERAPY TQS 1/> REGIONS EACH 15 MINUTES 12:00:00 AM EDT [facility] ([facility]) THERAPEUTIC PX 1/> AREAS EACH 15 MIN EXERCISES 12:00:00 AM EDT [facility] ([facility]) MANUAL THERAPY TQS 1/> REGIONS EACH 15 MINUTES 12:00:00 AM EDT [facility] ([facility]) THERAPEUTIC PX 1/> AREAS EACH 15 MIN EXERCISES 12:00:00 AM EDT [facility] ([facility]) MANUAL THERAPY TQS 1/> REGIONS EACH 15 MINUTES 12:00:00 AM EDT [facility] ([facility]) APPLICATION MODALITY 1/> AREAS HOT/COLD PACKS 11/28/19 12:00:00 AM EDT [facility] ([facility]) THERAPEUTIC PX 1/> AREAS EACH 15 MIN EXERCISES 12:00:00 AM EDT [facility] ([facility]) MANUAL THERAPY TQS 1/> REGIONS EACH 15 MINUTES 12:00:00 AM EDT [facility] ([facility]) THERAPEUTIC PX 1/> AREAS EACH 15 MIN EXERCISES 12:00:00 AM EDT [facility] ([facility]) MANUAL THERAPY TQS 1/> REGIONS EACH 15 MINUTES 12:00:00 AM EDT [facility] ([facility]) Re-Eval Of PT Established Plan Of Care 20Mins Face To Face P T/Fam 11/17/2020 12:00:00 AM EDT [facility] ([facility]) OFFICE OUTPATIENT VISIT 15 MINUTES 11/04/2020 12:00:00 AM EDT [facility] ([facility]) THERAPEUTIC PX 1/> AREAS EACH 15 MIN EXERCISES 021 12:00:00 AM EDT [facility] ([facility]) MANUAL THERAPY TQS 1/> REGIONS EACH 15 MINUTES 021 12:00:00 AM EDT [facility] ([facility]) APPLICATION MODALITY 1/> AREAS HOT/COLD PACKS 10/02/19 21 12:00:00 AM EDT [facility] ([facility]) THERAPEUTIC PX 1/> AREAS EACH 15 MIN EXERCISES 021 12:00:00 AM EDT [facility] ([facility]) MANUAL THERAPY TQS 1/> REGIONS EACH 15 MINUTES 021 12:00:00 AM EDT [facility] ([facility]) APPLICATION MODALITY 1/> AREAS HOT/COLD PACKS 09/24/19 21 12:00:00 AM EDT [facility] ([facility]) APPL MODALITY 1/> AREAS ELEC STIMJ EA 15 MIN 12:00:00 AM EDT [facility] ([facility]) THERAPEUTIC PX 1/> AREAS EACH 15 MIN EXERCISES 021 12:00:00 AM EDT [facility] ([facility]) MANUAL THERAPY TQS 1/> REGIONS EACH 15 MINUTES 021 12:00:00 AM EDT [facility] ([facility]) APPLICATION MODALITY 1/> AREAS HOT/COLD PACKS 09/22/19 21 12:00:00 AM EDT [facility] ([facility]) APPL MODALITY 1/> AREAS ELEC STIMJ EA 15 MIN 12:00:00 AM EDT [facility] ([facility]) THERAPEUTIC PX 1/> AREAS EACH 15 MIN EXERCISES 021 12:00:00 AM EDT [facility] ([facility]) MANUAL THERAPY TQS 1/> REGIONS EACH 15 MINUTES 021 12:00:00 AM EDT [facility] ([facility]) OFFICE OUTPATIENT VISIT 25 MINUTES 09/21/2020 12:00:00 AM EDT [facility] ([facility]) Re-Eval Of PT Established Plan Of Care 20Mins Face To Face P T/Fam 09/17/2020 12:00:00 AM EDT [facility] ([facility]) MANUAL THERAPY TQS 1/> REGIONS EACH 15 MINUTES 021 12:00:00 AM EDT [facility] ([facility]) APPL MODALITY 1/> AREAS ELEC STIMJ EA 15 MIN 04/29/202 1 12:00:00 AM EDT [facility] ([facility]) APPLICATION MODALITY 1/> AREAS HOT/COLD PACKS 09/18/19 12:00:00 AM EDT [facility] ([facility]) THERAPEUTIC PX 1/> AREAS EACH 15 MIN EXERCISES 021 12:00:00 AM EDT [facility] ([facility]) APPLICATION MODALITY 1/> AREAS HOT/COLD PACKS 09/16/19 12:00:00 AM EDT [facility] ([facility]) APPL MODALITY 1/> AREAS ELEC STIMJ EA 15 MIN 1 12:00:00 AM EDT [facility] ([facility]) THERAPEUTIC PX 1/> AREAS EACH 15 MIN EXERCISES 021 12:00:00 AM EDT [facility] ([facility]) MANUAL THERAPY TQS 1/> REGIONS EACH 15 MINUTES 021 12:00:00 AM EDT [facility] ([facility]) APPLICATION MODALITY 1/> AREAS HOT/COLD PACKS 09/12/19 12:00:00 AM EDT [facility] ([facility]) APPL MODALITY 1/> AREAS ELEC STIMJ EA 15 MIN 12:00:00 AM EDT [facility] ([facility]) THERAPEUTIC PX 1/> AREAS EACH 15 MIN EXERCISES 021 12:00:00 AM EDT [facility] ([facility]) MANUAL THERAPY TQS 1/> REGIONS EACH 15 MINUTES 021 12:00:00 AM EDT [facility] ([facility]) APPLICATION MODALITY 1/> AREAS HOT/COLD PACKS 09/10/19 21 12:00:00 AM EDT [facility] ([facility]) APPL MODALITY 1/> AREAS ELEC STIMJ EA 15 MIN 1 12:00:00 AM EDT [facility] ([facility]) THERAPEUTIC PX 1/> AREAS EACH 15 MIN EXERCISES 021 12:00:00 AM EDT [facility] ([facility]) MANUAL THERAPY TQS 1/> REGIONS EACH 15 MINUTES 021 12:00:00 AM EDT [facility] ([facility]) APPLICATION MODALITY 1/> AREAS HOT/COLD PACKS 08/25/19 21 12:00:00 AM EDT [facility] ([facility]) APPL MODALITY 1/> AREAS ELEC STIMJ EA 15 MIN 1 12:00:00 AM EDT [facility] ([facility] THERAPEUTIC PX 1/> AREAS EACH 15 MIN EXERCISES 021 12:00:00 AM EDT [facility] ([facility] THERAPEUTIC PX 1/> AREAS EACH 15 MIN EXERCISES 12:00:00 AM EDT [facility] ([facility] APPL MODALITY 1/> AREAS ELEC STIMJ EA 15 MIN 12:00:00 AM EDT [facility] ([facility] APPLICATION MODALITY 1/> AREAS HOT/COLD PACKS 08/20/19 21 12:00:00 AM EDT [facility] ([facility] THERAPEUTIC PX 1/> AREAS EACH 15 MIN EXERCISES 021 12:00:00 AM EDT [facility] ([facility] APPLICATION MODALITY 1/> AREAS HOT/COLD PACKS 08/15/19 21 12:00:00 AM EDT [facility] ([facility] APPL MODALITY 1/> AREAS ELEC STIMJ EA 15 MIN 12:00:00 AM EDT [facility] ([facility] THERAPEUTIC PX 1/> AREAS EACH 15 MIN EXERCISES 12:00:00 AM EDT [facility] ([facility] OFFICE OUTPATIENT VISIT 15 MINUTES 08/10/2020 12:00:00 AM EDT [facility] ([facility] APPLICATION MODALITY 1/> AREAS HOT/COLD PACKS 08/08/19 21 12:00:00 AM EDT [facility] ([facility]) APPL MODALITY 1/> AREAS ELEC STIMJ EA 15 MIN 12:00:00 AM EDT [facility] ([facility] ) THERAPEUTIC PX 1/> AREAS EACH 15 MIN EXERCISES 021 12:00:00 AM EDT [facility] ([facility] ) Physical Therapy Eval - Low Complexity 07/29/2020 12:0 0:00 AM EST [facility] ([facility] ) OFFICE OUTPATIENT NEW 45 MINUTES 07/13/2020 12:00:00 A M EST [facility] ([facility] ) Results ID Date Data Source [id number] 03/02/2021 12:00:00 AM EDT [facility] Name Value Range Interpretation Code Description Data Trupti rce(s) Supporting Document(s) SARS coronavirus 2 Ag NEGATIVE [facility] and reported by [facility]. ID Date Data Source [id number] 02/23/2021 12:00:00 AM EDT [facility] Name Value Range Interpretation Code Description Data Trupti rce(s) Supporting Document(s) SARS coronavirus 2 Ag NEGATIVE [facility] This lab was ordered by [facility] and reported by [facility]. ID Date Data Source [id number] 02/16/2021 12:00:00 AM EDT [facility] Name Value Range Interpretation Code Description Data Trupti rce(s) Supporting Document(s) SARS coronavirus 2 Ag NEGATIVE [facility] This lab was ordered by [facility] and reported by [facility]. ID Date Data Source [id number] 02/09/2021 12:00:00 AM EDT [facility] Name Value Range Interpretation Code Description Data Trupti rce(s) Supporting Document(s) SARS coronavirus 2 Ag NEGATIVE [facility] This lab was ordered by [facility] and reported by [facility]. ID Date Data Source [id number] 01/28/2021 12:00:00 AM EDT [facility] Name Value Range Interpretation Code Description Data Trupti rce(s) Supporting Document(s) SARS coronavirus 2 Ag NEGATIVE [facility] This lab was ordered by [facility] and reported by [facility]. ID Date Data Source [id number] 10/29/2020 12:00:00 AM EDT [facility] Name Value Range Interpretation Code Description Data Trupti rce(s) Supporting Document(s) SARS coronavirus 2 Ag NEGATIVE [facility] This lab was ordered by [facility] and reported by [facility]. ID Date Data Source [id number] 10/27/2020 12:00:00 AM EDT [facility] Name Value Range Interpretation Code Description Data Trupti rce(s) Supporting Document(s) SARS coronavirus 2 Ag NEGATIVE [facility] This lab was ordered by [facility] and reported by [facility]. ID Date Data Source [id number] 10/23/2020 12:00:00 AM EDT [facility] Name Value Range Interpretation Code Description Data Trupti rce(s) Supporting Document(s) SARS coronavirus 2 Ag NEGATIVE [facility] This lab was ordered by [facility] and reported by [facility]. ID Date Data Source [id number] 10/20/2020 12:00:00 AM EDT [facility] Name Value Range Interpretation Code Description Data Trupti rce(s) Supporting Document(s) SARS coronavirus 2 Ag NEGATIVE [facility] This lab was ordered by [facility] and reported by [facility]. ID Date Data Source [id number] 10/15/2020 12:00:00 AM EDT [facility] Name Value Range Interpretation Code Description Data Trupti rce(s) Supporting Document(s) SARS coronavirus 2 Ag NEGATIVE [facility] This lab was ordered by [facility] and reported by [facility]. ID Date Data Source [id number] 10/12/2020 12:00:00 AM EDT [facility] Name Value Range Interpretation Code Description Data Trupti rce(s) Supporting Document(s) SARS coronavirus 2 Ag NEGATIVE [facility] This lab was ordered by [facility] and reported by [facility]. ID Date Data Source [id number] 10/05/2020 09:05:00 AM EDT [facility] Name Value Range Interpretation Code Description Data Trupti rce(s) Supporting Document(s) SARS-CoV-2 (COVID-19) RNA [Presence] in Respiratory specimen by LISANDRA with probe detection Not Detected [facility] This lab was ordered by [facility] and reported by [employer]. ID Date Data Source [id number] 10/01/2020 12:00:00 AM EDT [facility] Name Value Range Interpretation Code Description Data Trupti rce(s) Supporting Document(s) SARS coronavirus 2 Ag NEGATIVE [facility] This lab was ordered by [facility] and reported by [facility]. ID Date Data Source [id number] 09/28/2020 12:00:00 AM EDT [facility] Name Value Range Interpretation Code Description Data Trutpi rce(s) Supporting Document(s) SARS coronavirus 2 Ag NEGATIVE [facility] This lab was ordered by [facility] and reported by [facility]. ID Date Data Source [id number] 09/24/2020 12:00:00 AM EDT [facility] Name Value Range Interpretation Code Description Data Trupti rce(s) Supporting Document(s) SARS coronavirus 2 Ag NEGATIVE [facility] This lab was ordered by [facility] and reported by [facility]. ID Date Data Source [id number] 09/21/2020 12:00:00 AM EDT [facility] Name Value Range Interpretation Code Description Data Trupti rce(s) Supporting Document(s) SARS coronavirus 2 Ag NEGATIVE [facility] This lab was ordered by [facility] and reported by [facility]. ID Date Data Source [id number] 09/17/2020 12:00:00 AM EDT [facility] Name Value Range Interpretation Code Description Data Trupti rce(s) Supporting Document(s) SARS coronavirus 2 Ag NEGATIVE [facility] This lab was ordered by [facility] and reported by [facility]. ID Date Data Source [id number] 07/13/2020 11:20:00 AM EST [facility] Name Value Range Interpretation Code Description Data Trupti rce(s) Supporting Document(s) SARS coronavirus 2 RNA Not Detected [facility] This lab was ordered by [facility] and reported by [facility]. ID Date Data Source [id number] 07/09/2020 12:00:00 AM EST [facility] Name Value Range Interpretation Code Description Data Trupti rce(s) Supporting Document(s) SARS coronavirus 2 Ag NEGATIVE [facility] This lab was ordered by [facility] and reported by [facility]. ID Date Data Source [id number] 07/06/2020 02:56:00 PM EST [facility] Name Value Range Interpretation Code Description Data Trupti rce(s) Supporting Document(s) SARS coronavirus 2 RNA Not Detected [facility] This lab was ordered by [facility] and reported by [facility]. ID Date Data Source [id number] 07/02/2020 12:00:00 AM EST [facility] Name Value Range Interpretation Code Description Data Trupti rce(s) Supporting Document(s) SARS coronavirus 2 Ag NEGATIVE [facility] This lab was ordered by [facility] and reported by [facility]. ID Date Data Source [id number] 06/29/2020 02:00:00 PM EST [facility] Name Value Range Interpretation Code Description Data Trupti rce(s) Supporting Document(s) SARS coronavirus 2 RNA Not Detected [facility] This lab was ordered by [facility] and reported by [facility]. ID Date Data Source [id number] 06/25/2020 12:00:00 AM EST [facility] Name Value Range Interpretation Code Description Data Trupti rce(s) Supporting Document(s) SARS coronavirus 2 Ag [facility] This lab was ordered by [facility] and reported by [facility]. ID Date Data Source [id number] 06/22/2020 02:30:00 PM EST [facility] Name Value Range Interpretation Code Description Data Trupti rce(s) Supporting Document(s) SARS coronavirus 2 RNA Not Detected [facility] This lab was ordered by [facility] and reported by [facility]. ID Date Data Source [id number] 06/18/2020 12:00:00 AM EST [facility] Name Value Range Interpretation Code Description Data Trupti rce(s) Supporting Document(s) SARS coronavirus 2 Ag NEGATIVE [facility] This lab was ordered by [facility] and reported by [facility]. ID Date Data Source [id number] 06/15/2020 08:00:00 AM EST [facility] Name Value Range Interpretation Code Description Data Trupti rce(s) Supporting Document(s) SARS coronavirus 2 RNA Not Detected [facility] This lab was ordered by [facility] and reported by [facility]. ID Date Data Source [id number] 06/11/2020 12:00:00 AM EST [facility] Name Value Range Interpretation Code Description Data Trupti rce(s) Supporting Document(s) SARS coronavirus 2 Ag Negative [facility] This lab was ordered by [facility] and reported by [facility]. ID Date Data Source [id number] 06/04/2020 12:00:00 AM EST [facility] Name Value Range Interpretation Code Description Data Trupti rce(s) Supporting Document(s) SARS-CoV2 Rapid Antigen Negative [facility] This lab was ordered by [facility] and reported by [facility]. ID Date Data Source [id number] 06/01/2020 10:57:00 AM EST [facility] Name Value Range Interpretation Code Description Data Trupti rce(s) Supporting Document(s) SARS coronavirus 2 RNA Not Detected [facility] This lab was ordered by [facility] and reported by [facility]. ID Date Data Source [id number] 05/25/2020 11:30:00 AM EST [facility] Name Value Range Interpretation Code Description Data Trupti rce(s) Supporting Document(s) SARS coronavirus 2 RNA Not Detected [facility] This lab was ordered by [facility] and reported by [facility]. ID Date Data Source [id number] 05/18/2020 02:36:00 PM EST [facility] Name Value Range Interpretation Code Description Data Trupti rce(s) Supporting Document(s) SARS coronavirus 2 RNA [facility] This lab was ordered by [facility] and reported by [facility]. ID Date Data Source [id number] 05/12/2020 01:45:00 PM EST [facility] Name Value Range Interpretation Code Description Data Trupti rce(s) Supporting Document(s) SARS coronavirus 2 RNA [facility] This lab was ordered by [facility] and reported by [facility]. ID Date Data Source [id number] 05/12/2020 12:00:00 AM EST [facility] Name Value Range Interpretation Code Description Data Trupti rce(s) Supporting Document(s) SARS-CoV2 Rapid Antigen [facility] This lab was ordered by [facility] and reported by [facility]. ID Date Data Source [id number] 04/30/2020 03:10:00 PM EST [facility] Name Value Range Interpretation Code Description Data Trupti rce(s) Supporting Document(s) SARS coronavirus 2 RNA [Presence] in Res piratory specimen by LISANRDA with probe detection [facility] This lab was ordered by [facility] a nd reported by [facility]. ID Date Data Source [id number] 04/24/2020 01:40:00 PM EST [facility] Name Value Range Interpretation Code Description Data Trupti rce(s) Supporting Document(s) SARS coronavirus 2 RNA [facility] This lab was ordered by [facility] and reported by [facility]. ID Date Data Source [id number] 04/20/2020 07:27:00 AM EST [facility] Name Value Range Interpretation Code Description Data Trupti rce(s) Supporting Document(s) SARS coronavirus 2 RNA [facility] This lab was ordered by [facility] and reported by [facility]. ID Date Data Source [id number] 04/15/2020 12:00:00 AM EST [facility] Name Value Range Interpretation Code Description Data Trupti rce(s) Supporting Document(s) SARS-CoV2 Rapid Antigen [facility] This lab was ordered by [facility] and reported by [facility]. ID Date Data Source [id number] 04/03/2020 09:35:00 AM EST [facility] Name Value Range Interpretation Code Description Data Trupti rce(s) Supporting Document(s) SARS coronavirus 2 RNA [facility] This lab was ordered by [facility] and reported by [facility]. ID Date Data Source [id number] 03/30/2020 03:00:00 PM EST [facility] Name Value Range Interpretation Code Description Data Trupti rce(s) Supporting Document(s) SARS coronavirus 2 RNA [facility] This lab was ordered by [facility] and reported by [facility]. ID Date Data Source [id number] 03/23/2020 02:00:00 PM EST [facility] Name Value Range Interpretation Code Description Data Trupti rce(s) Supporting Document(s) SARS coronavirus 2 RNA [facility] This lab was ordered by [facility] and reported by [facility]. ID Date Data Source [id number] 03/16/2020 10:30:00 AM EDT [facility] Name Value Range Interpretation Code Description Data Trupti rce(s) Supporting Document(s) SARS coronavirus 2 RNA [facility] This lab was ordered by [facility] and reported by [facility]. ID Date Data Source [id number] 03/09/2020 10:28:00 AM EDT [facility] Name Value Range Interpretation Code Description Data Trupti rce(s) Supporting Document(s) SARS coronavirus 2 RNA [facility] This lab was ordered by [facility] and reported by [facility]. ID Date Data Source [id number] 03/02/2020 08:00:00 AM EDT [facility] Name Value Range Interpretation Code Description Data Trupti rce(s) Supporting Document(s) SARS coronavirus 2 RNA [facility] This lab was ordered by [facility] and reported by [facility]. ID Date Data Source [id number] 02/24/2020 12:00:00 PM EDT [facility] Name Value Range Interpretation Code Description Data Trupti rce(s) Supporting Document(s) SARS coronavirus 2 RNA [facility] This lab was ordered by [facility] and reported by [facility]. ID Date Data Source [id number] 02/10/2020 02:00:00 PM EDT [facility] Name Value Range Interpretation Code Description Data Trupti rce(s) Supporting Document(s) SARS coronavirus 2 RNA [facility] This lab was ordered by [facility] and reported by [facility]. ID Date Data Source [id number] 02/03/2020 10:00:00 AM EDT [facility] Name Value Range Interpretation Code Description Data Trupti rce(s) Supporting Document(s) SARS coronavirus 2 RNA [facility] This lab was ordered by [facility] and reported by [facility]. ID Date Data Source [id number] 01/29/2020 12:00:00 PM EDT [facility] Name Value Range Interpretation Code Description Data Trupti rce(s) Supporting Document(s) SARS coronavirus 2 RNA [facility] This lab was ordered by [facility] and reported by [facility]. ID Date Data Source [id number] 01/20/2020 02:48:00 PM EDT [facility] Name Value Range Interpretation Code Description Data Trupti rce(s) Supporting Document(s) SARS coronavirus 2 RNA [facility] This lab was ordered by [facility] and reported by [facility]. Procedure Social History No Information Vital Signs ID Date Data Source UNK Name Value Range Interpretation Code Description Data Source(s) Body temperature 96.4 [degF] 96.4 [degF] JASON ([facility] ) Body height 71.5 [in_i] 71.5 [in_i] JASON ([facility] ) 5'11.50" Body weight 276.00 [lb_av] 276.00 [lb_av] VIVIANE Hagen ([facility] ) Body mass index (BMI) [Ratio] 38.0 kg/m2 38.0 k g/m2 JASON ([facility] )
[2021-03-15 15:17] VITALS: BP 160/107
== END 2021-03-15 15:21 | disposition home or self-care (01) ==
LOC: M ED 09:45
DX: U07.1 COVID-19 (principal); I10 Essential (primary) hypertension; Z88.8 Allergy status to other drugs, medicaments and biological substances; Z91.048 Other nonmedicinal substance allergy status; Z91.02 Food additives allergy status

== ENCOUNTER 2021-03-15 16:32 | Outpatient (CLI) | payer OTHER ==
--- NOTE | 2021-03-15 13:52 | HPEPDOC ---
[facility] Medical History & Physical Date of Admission Mar 15, 2021 Date of Service: Mar 15, 2021 History and Physical Chief complaint: Who presented to the hospital at the recommendation of [facility] for monoclonal antibodies History of present illness: Patient is a 30-year-old male with past medical history of borderline elevated blood pressure. Attention deficit disorder, who presented to the emergency room at the [facility] for monoclonal antibodies. Patient reported that on 03/10 was experiencing some congestion and upper respiratory tract infection like symptoms. . He ultimately was tested for COVID19 on 03/10 one by [facility]. Patient presented to the ER on 03/15 has reported no chest pain but does report some congestion. Denies any significant redness of breath. Reports a mild cough. Denies any palpitations. He denies any fevers or chills at home. Denies any nausea, vomiting, abdominal pain, constipation, but does report some loose bowel movements. Denies any urinary discomfort. Patient was that his appetite is poor but denies any changes in his weight. Past Medical History: Borderline elevated blood pressure ADD Work-related back injury History of gastritis Past Surgical History: No prior surgeries Allergies: See below Medications: See below Family History: - Fathers history is unknown - Mother with history of obesity and hypertension - Patient also reports a family history of cancer Social History: - Denies the use of illicit drugs; patient reports rare alcohol use; patient reports that he recently quit smoking - Denies recent travel; patient reports that he works [employer] and may have been exposed to a patient - Lives with roommates - Occupation; works at [employer] Review of Systems: 10 point review of systems complete, all negative otherwise stated in HPI Physical exam: - Vitals: BP [150/98], HR [86], RR [16], Sat [98%RA], Temp [98.2F] - General: Lying in bed, Speaking in full sentences, AAOx3 - HEENT: NC, AT, PERRLA - CVS: RRR, +S1S2, - Murmurs / rubs / gallops - Lungs: Fair air entry bilaterally, No appreciable wheezing / rales / rhonchi - Abdomen: Soft, Non-distended, Non-tender - Extremities: No lower extremity edema, No calf tenderness - Neuro: No focal motor or sensory deficit - Skin: No visible rashes Labs: See below Imaging: See below EKG: See below Assessment and Plan: COVID19 - Patient has reported symptoms since 03/10; reports congestion, fatigue and sh allow breathing - Patient has positive for on 03/11 - Patient is currently saturating at 98% on room air - Patient does have many risk factors for severe disease progression - Has consulted for monoclonal antibody infusion; signed paperwork - Patient will be established with home health and pulse oximetry based on ER discharge procedures Borderline elevated blood pressure - Will have outpatient follow-up with primary care provider for blood pressure management ADD - Currently not on any medications Work-related back injury - Continue with Tylenol when necessary History of gastritis - Currently does not experience any abdominal pain, nausea or vomiting DVT prophylaxis - Will continue with early ambulation Home Medications Scheduled PRN Ibuprofen (Ibuprofen) 600 Mg Tablet, 600 MG PO Q6H PRN for PAIN Allergies Coded Allergies: Neotame (Verified Allergy, Intermediate, artificial sweeteners - hives, 06/07/20) aspartame (Verified Allergy, Intermediate, artificial sweeteners - hives, 06/07/20) nickel (Verified Allergy, Intermediate, RASH, 04/30/20) saccharin (Verified Allergy, Intermediate, artificial sweeteners - hives, 06/07/20) sucralose (Verified Allergy, Intermediate, artificial sweeteners - hives, 06/07/20) STEPHON BANGURA MD Mar 15, 2021 13:51
[2021-03-15 16:15] VITALS: BP 159/102
[~2021-03-15 16:32] MED LIST changes: +ACETAMINOPHEN TAB 650MG DOSE (2X325MG) PO PRN; +ALBUTEROL 90 MCG/ACT 8GM HFA INHALER INH PRN; +ALBUTEROL SULFATE 2.5 MG/0.5 ML INH NEB SOLN INH PRN; +BAMLANIVIMAB 700 MG, ETESEVIMAB 1,400 MG in NS 250 ML IV ONE; +EPINEPHrine INJ 1 MG/ML 1ML AMP IM PRN; +NS 1,000 ML IV SCH; +diphenhydrAMINE 50MG/ML VIAL (J1200) IV PRN; +methylPREDNISolone 125MG 2ML VIAL IV PRN
[2021-03-15 16:45] VITALS: BP 147/85
[2021-03-15 17:15] VITALS: BP 150/96
[2021-03-15 18:25] VITALS: BP 138/91
== END 2021-03-15 18:31 | disposition home or self-care (01) ==
LOC: M OPCLI4 16:32
PROVIDERS: ATTEND Internal Medicine
DX: U07.1 COVID-19 (principal); Z88.8 Allergy status to other drugs, medicaments and biological substances

== ENCOUNTER → 2021-07-07 | Outpatient (REF) ==
[~2021-07-07] MED LIST changes: -ACETAMINOPHEN TAB 650MG DOSE (2X325MG) PO PRN; -ALBUTEROL 90 MCG/ACT 8GM HFA INHALER INH PRN; -ALBUTEROL SULFATE 2.5 MG/0.5 ML INH NEB SOLN INH PRN; -BAMLANIVIMAB 700 MG, ETESEVIMAB 1,400 MG in NS 250 ML IV ONE; -EPINEPHrine INJ 1 MG/ML 1ML AMP IM PRN; -NS 1,000 ML IV SCH; -diphenhydrAMINE 50MG/ML VIAL (J1200) IV PRN; -methylPREDNISolone 125MG 2ML VIAL IV PRN
== END ==
LOC: M LABSMTC 09:03
PROVIDERS: ATTEND Family Medicine
DX: Z20.822 Contact with and (suspected) exposure to COVID-19 (principal)

== ENCOUNTER → 2021-09-10 | Outpatient (REF) ==
[2021-09-10 11:56] LABS: RSV AMPLIFICATION NEGATIVE (NEGATIVE)
== END ==
LOC: M EMP 11:03
PROVIDERS: ATTEND Family Medicine
DX: Z20.822 Contact with and (suspected) exposure to COVID-19 (principal)

== ENCOUNTER → 2021-09-12 | Outpatient (REF) | payer BC | LOC: M LAB REF 12:01 | PROVIDERS: ATTEND Physician Assistant | DX: R11.0 Nausea (principal); R19.7 Diarrhea, unspecified ==

== ENCOUNTER → 2021-10-11 | Outpatient (REF) | payer BC | LOC: M LAB REF 12:36 | PROVIDERS: ATTEND Physician Assistant Medical | DX: R53.83 Other fatigue (principal); R51.9 Headache, unspecified ==

== ENCOUNTER 2021-10-26 12:51 | Emergency (ER) | payer BC ==
[~2021-10-26] VITALS: Ht 182.9 cm; Wt 141.2 kg
[2021-10-26 12:52] VITALS: BP 145/91
[2021-10-26] MEDS ORDERED: ALBU8.5H (13:05)
[2021-10-26] MEDS ORDERED: BACIOIN5 OP (17:24)
[2021-10-26 18:07] LABS: BASO # 0.1 10^3/uL (0.0-0.2); BASO % 0.8 % (0.0-1.0); EOS # 0.3 10^3/uL (0.0-0.5); EOS % 3.4 % (0.0-3.0); HEMATOCRIT 46.1 % (42.0-52.0); HEMOGLOBIN 15.9 g/dl (13.5-17.5); LYMPH # 2.4 10^3/uL (1.5-5.0); LYMPH % 30.1 % (24.0-44.0); MEAN CORPUSCULAR HEMOGLOBIN 30.5 pg (27.0-33.0); MEAN CORPUSCULAR HGB CONC 34.5 g/dl (32.0-36.5); MEAN CORPUSCULAR VOLUME 88.5 fl (80.0-96.0); MONO # 0.5 10^3/uL (0.0-0.8); MONO % 6.7 % (2.0-8.0); NEUTROPHILS # 4.7 10^3/uL (1.5-8.5); NEUTROPHILS % 58.5 % (36.0-66.0); PLATELET COUNT, AUTOMATED 315 10^3/uL (150-450); RED BLOOD COUNT 5.21 10^6/uL (4.30-6.10); WHITE BLOOD COUNT 7.9 10^3/uL (4.0-10.0)
[2021-10-26 18:39] LABS: ALBUMIN 4.3 GM/DL (3.2-5.2); ALT/SGPT 90 U/L (12-78); BILIRUBIN,TOTAL 0.5 MG/DL (0.2-1.0); BLOOD UREA NITROGEN 14 MG/DL (7-18); CARBON DIOXIDE LEVEL 29 MEQ/L (21-32); CHLORIDE LEVEL 107 MEQ/L (98-107); CREATININE FOR GFR 0.85 MG/DL (0.70-1.30); GLOMERULAR FILTRATION RATE > 60.0 (>60); GLUCOSE, FASTING 80 MG/DL (70-100); POTASSIUM SERUM 4.2 MEQ/L (3.5-5.1); SODIUM LEVEL 139 MEQ/L (136-145); TOTAL PROTEIN 7.6 GM/DL (6.4-8.2)
[2021-10-26 18:47] LABS: HEPATITIS B SURFACE ANTIBODY POSITIVE (POSITIVE)
[2021-10-26 18:58] LABS: HEPATITIS B SURFACE ANTIGEN NEGATIVE (NEGATIVE)
[2021-10-26 19:26] LABS: HEPATITIS C VIRUS ABY INDEX 0.1 INDEX (<0.8)
== END 2021-10-26 19:32 | disposition home or self-care (01) ==
LOC: M ED 12:51
DX: S60.811A Abrasion of right wrist, initial encounter (principal); W26.8XXA Contact with other sharp object(s), not elsewhere classified, initial encounter; Y92.9 Unspecified place or not applicable; Y93.9 Activity, unspecified; Y99.0 Civilian activity done for income or pay; J45.909 Unspecified asthma, uncomplicated; F90.9 Attention-deficit hyperactivity disorder, unspecified type; Z88.8 Allergy status to other drugs, medicaments and biological substances

== ENCOUNTER → 2021-11-25 | Outpatient (CLI) | payer OTHER ==
[~2021-11-25] MED LIST changes: +ALBU8.5H; +BACIOIN5 OP; +CYCL5TAB PO
== END ==
LOC: M PAIN 08:30
PROVIDERS: ATTEND Nurse Practitioner Family
DX: M79.10 Myalgia, unspecified site (principal); M54.50 Low back pain, unspecified; G89.29 Other chronic pain; Z86.59 Personal history of other mental and behavioral disorders; Z87.891 Personal history of nicotine dependence; Z91.018 Allergy to other foods; E66.01 Morbid (severe) obesity due to excess calories; Z68.41 Body mass index [BMI] 40.0-44.9, adult; Z79.899 Other long term (current) drug therapy

== ENCOUNTER 2021-12-22 12:54 | Emergency (ER) | payer OTHER ==
[~2021-12-22] VITALS: Ht 182.9 cm; Wt 138.9 kg
[2021-12-22 12:54] VITALS: BP 146/85
[~2021-12-22 12:54] MED LIST changes: -CYCL5TAB PO
[2021-12-22] MEDS ORDERED: KETOROLAC 60MG 2ML VIAL IM ONE (17:10)
[2021-12-22] MEDS ORDERED: CYCL5TAB PO (19:49)
== END 2021-12-22 19:58 | disposition home or self-care (01) ==
LOC: M ED 12:54
DX: M54.50 Low back pain, unspecified (principal); J45.909 Unspecified asthma, uncomplicated; Z91.018 Allergy to other foods; Z91.048 Other nonmedicinal substance allergy status; Z91.02 Food additives allergy status
CPT/HCPCS: 72131; 96374; 99282; J1885

== ENCOUNTER → 2022-01-21 | Outpatient (CLI) | payer OTHER ==
[~2022-01-21] MED LIST changes: +CYCL5TAB PO
== END ==
LOC: M PAIN 10:00
PROVIDERS: ATTEND Nurse Practitioner Family
DX: M79.10 Myalgia, unspecified site (principal); G89.29 Other chronic pain; Z86.59 Personal history of other mental and behavioral disorders; Z87.891 Personal history of nicotine dependence; Z91.018 Allergy to other foods; E66.01 Morbid (severe) obesity due to excess calories; Z68.41 Body mass index [BMI] 40.0-44.9, adult; Z79.899 Other long term (current) drug therapy

== ENCOUNTER 2022-02-16 14:57 | Outpatient (RCR) | payer OTHER | END 2022-02-18 | LOC: M PT 14:57 | PROVIDERS: ATTEND Nurse Practitioner Family | DX: M79.10 Myalgia, unspecified site (principal) ==

== ENCOUNTER 2022-02-23 14:38 | Outpatient (RCR) | payer OTHER | END 2022-03-21 | LOC: M PT 14:38 | PROVIDERS: ATTEND Nurse Practitioner Family | DX: M79.10 Myalgia, unspecified site (principal) ==

== ENCOUNTER → 2022-02-24 | Outpatient (CLI) | payer OTHER | LOC: M RAD 07:35 | PROVIDERS: ATTEND Physician Assistant | DX: M51.36 Other intervertebral disc degeneration, lumbar region (principal); M47.817 Spondylosis without myelopathy or radiculopathy, lumbosacral region; M47.816 Spondylosis without myelopathy or radiculopathy, lumbar region ==

== ENCOUNTER → 2022-03-24 | Outpatient (CLI) | payer OTHER | LOC: M PAIN 14:45 | PROVIDERS: ATTEND Nurse Practitioner Family | DX: M79.10 Myalgia, unspecified site (principal); G89.29 Other chronic pain; Z86.59 Personal history of other mental and behavioral disorders; Z87.891 Personal history of nicotine dependence; Z91.018 Allergy to other foods; Z91.09 Other allergy status, other than to drugs and biological substances; Z79.899 Other long term (current) drug therapy ==

== ENCOUNTER → 2022-04-20 | Outpatient (REF) ==
[2022-04-20 16:58] LABS: RSV AMPLIFICATION NEGATIVE (NEGATIVE)
== END ==
LOC: M EMP 15:56
PROVIDERS: ATTEND Family Medicine
DX: Z20.822 Contact with and (suspected) exposure to COVID-19 (principal)

== ENCOUNTER → 2022-05-06 | Outpatient (REF) | payer BC ==
[2022-05-06 12:29] LABS: CHOLESTEROL RISK RATIO 3.72 (<5); LDL CHOLESTEROL 115.8 MG/DL (<100)
== END ==
LOC: M LAB REF 11:40
PROVIDERS: ATTEND Pediatrics
DX: E78.5 Hyperlipidemia, unspecified (principal)

== ENCOUNTER → 2022-06-13 | Outpatient (REF) | LOC: M EMP 08:47 | PROVIDERS: ATTEND Family Medicine | DX: Z11.52 Encounter for screening for COVID-19 (principal) ==

== ENCOUNTER 2022-06-29 06:13 | Emergency (ER) | payer BC ==
[~2022-06-29] VITALS: Ht 182.9 cm; Wt 140.9 kg
[2022-06-29] MEDS ORDERED: NS 1,000 ML IV ONE (07:30)
[2022-06-29 08:10] LABS: BASO # 0.1 10^3/uL (0.0-0.2); BASO % 1.1 % (0.0-1.0); EOS # 0.1 10^3/uL (0.0-0.5); EOS % 1.3 % (0.0-3.0); HEMATOCRIT 45.3 % (42.0-52.0); HEMOGLOBIN 15.6 g/dl (13.5-17.5); LYMPH # 1.6 10^3/uL (1.5-5.0); LYMPH % 25.9 % (24.0-44.0); MEAN CORPUSCULAR HGB CONC 34.4 g/dl (32.0-36.5); MEAN CORPUSCULAR VOLUME 87.1 fl (80.0-96.0); MONO # 0.5 10^3/uL (0.0-0.8); MONO % 7.6 % (2.0-8.0); NEUTROPHILS % 63.6 % (36.0-66.0); PLATELET COUNT, AUTOMATED 315 10^3/uL (150-450); WHITE BLOOD COUNT 6.3 10^3/uL (4.0-10.0)
[2022-06-29 08:21] LABS: INR 0.93; PROTHROMBIN TIME 12.7 SECONDS (12.5-14.5)
[2022-06-29 08:26] LABS: PARTIAL THROMBOPLASTIN TIME 28.2 SECONDS (24.8-34.2)
[2022-06-29 08:40] LABS: ALBUMIN 4.1 G/DL (3.2-5.2); ALKALINE PHOSPHATASE 83 U/L (46-116); ALT/SGPT 74 U/L (7.0-40); AST/SGOT 47 U/L (<34); BILIRUBIN,DIRECT 0.2 MG/DL (<0.4); BILIRUBIN,TOTAL 0.8 MG/DL (0.3-1.2); BLOOD UREA NITROGEN 12 MG/DL (9-23); CALCIUM LEVEL 9.4 MG/DL (8.5-10.1); CARBON DIOXIDE LEVEL 27 MMOL/L (20-31); CHLORIDE LEVEL 101 MMOL/L (98-107); CK-MB VALUE MASS < 1.0 NG/ML (<3.6); CREATININE FOR GFR 0.68 MG/DL (0.70-1.30); GLOMERULAR FILTRATION RATE > 60.0 (>60); GLUCOSE, FASTING 91 MG/DL (60-100); POTASSIUM SERUM 4.5 MMOL/L (3.5-5.1); SODIUM LEVEL 136 MMOL/L (136-145); TOTAL PROTEIN 7.5 G/DL (5.7-8.2)
[2022-06-29 08:41] LABS: THYROID STIMULATING HORMONE 2.207 uIU/ML (0.55-4.78)
[2022-06-29 08:42] LABS: CPK CREATINE PHOSPHOKINASE 135 U/L (46-171); FREE T4 1.46 NG/DL (0.89-1.76); MB/CK RELATIVE INDEX 0.74 (< OR =4)
[2022-06-29 10:18] LABS: CK-MB VALUE MASS < 1.0 NG/ML (<3.6)
[2022-06-29 10:19] LABS: CPK CREATINE PHOSPHOKINASE 106 U/L (46-171); MB/CK RELATIVE INDEX 0.94 (< OR =4)
[2022-06-29 10:40] VITALS: BP 132/86
== END 2022-06-29 10:55 | disposition home or self-care (01) ==
LOC: M ED 06:13
DX: R07.9 Chest pain, unspecified (principal); R00.2 Palpitations; R03.0 Elevated blood-pressure reading, without diagnosis of hypertension; J45.909 Unspecified asthma, uncomplicated; Z91.018 Allergy to other foods; Z91.048 Other nonmedicinal substance allergy status; Z79.891 Long term (current) use of opiate analgesic

== ENCOUNTER → 2022-08-02 | Outpatient (CLI) | payer BC | LOC: M RAD 14:39 | PROVIDERS: ATTEND Nurse Practitioner Family | DX: M25.562 Pain in left knee (principal); M25.561 Pain in right knee ==

== ENCOUNTER 2022-08-30 06:08 | Emergency (ER) | payer BC ==
[~2022-08-30] VITALS: Ht 182.9 cm; Wt 140.4 kg
[2022-08-30] MEDS ORDERED: ACET-841 PO (06:19)
[2022-08-30] MEDS ORDERED: LISI5TAB11 PO (06:19)
[2022-08-30 08:18] VITALS: BP 142/84
== END 2022-08-30 08:21 | disposition home or self-care (01) ==
LOC: M ED 06:08
DX: I10 Essential (primary) hypertension (principal); F90.9 Attention-deficit hyperactivity disorder, unspecified type; F41.9 Anxiety disorder, unspecified; Z79.899 Other long term (current) drug therapy; Z87.891 Personal history of nicotine dependence; Z91.018 Allergy to other foods

== ENCOUNTER → 2022-10-20 | Outpatient (CLI) | payer OTHER ==
[~2022-10-20] MED LIST changes: +ACET-841 PO; +LISI5TAB11 PO
== END ==
LOC: M PAIN 11:15
PROVIDERS: ATTEND Nurse Practitioner Family
DX: M79.10 Myalgia, unspecified site (principal); G89.29 Other chronic pain; Z86.59 Personal history of other mental and behavioral disorders; Z87.891 Personal history of nicotine dependence; Z91.018 Allergy to other foods; Z91.09 Other allergy status, other than to drugs and biological substances; E66.01 Morbid (severe) obesity due to excess calories; Z68.41 Body mass index [BMI] 40.0-44.9, adult; Z79.899 Other long term (current) drug therapy

== ENCOUNTER 2022-11-02 15:37 | Emergency (ER) | payer OTHER ==
[~2022-11-02] VITALS: Ht 182.9 cm; Wt 137.9 kg
[2022-11-02 18:00] VITALS: BP 150/95; TEMP 98.3; O2SAT 96
== END 2022-11-02 18:02 | disposition home or self-care (01) ==
LOC: M ED 15:37
DX: S92.301A Fracture of unspecified metatarsal bone(s), right foot, initial encounter for closed fracture (principal); I10 Essential (primary) hypertension; J45.909 Unspecified asthma, uncomplicated; Z79.811 Long term (current) use of aromatase inhibitors; Z79.1 Long term (current) use of non-steroidal anti-inflammatories (NSAID); Y99.0 Civilian activity done for income or pay

== ENCOUNTER → 2022-11-04 | Outpatient (REF) | payer BC ==
[2022-11-04 12:03] LABS: BASO # 0.1 10^3/uL (0.0-0.2); BASO % 0.6 % (0.0-1.0); EOS # 0.2 10^3/uL (0.0-0.5); HEMOGLOBIN 15.2 g/dl (13.5-17.5); LYMPH # 3.1 10^3/uL (1.5-5.0); LYMPH % 38.2 % (24.0-44.0); MEAN CORPUSCULAR HEMOGLOBIN 30.5 pg (27.0-33.0); MEAN CORPUSCULAR HGB CONC 33.8 g/dl (32.0-36.5); MEAN CORPUSCULAR VOLUME 90.2 fl (80.0-96.0); MONO # 0.5 10^3/uL (0.0-0.8); MONO % 6.6 % (2.0-8.0); NEUTROPHILS # 4.2 10^3/uL (1.5-8.5); NEUTROPHILS % 52.2 % (36.0-66.0); PLATELET COUNT, AUTOMATED 326 10^3/uL (150-450); RED BLOOD COUNT 4.99 10^6/uL (4.30-6.10)
[2022-11-04 12:19] LABS: HEMOGLOBIN A1c 4.8 % (4.0-6.0)
[2022-11-04 12:32] LABS: ERYTHROCYTE SEDIMENTATION RATE 8 mm/hr (0-15)
[2022-11-04 12:34] LABS: C REACTIVE PROTEIN QUANTITATIV < 0.40 MG/DL (<1.0)
[2022-11-04 12:35] LABS: ALBUMIN 4.1 G/DL (3.2-5.2); ALKALINE PHOSPHATASE 85 U/L (46-116); ALT/SGPT 55 U/L (7.0-40); AST/SGOT 23 U/L (<34); BILIRUBIN,TOTAL 0.6 MG/DL (0.3-1.2); BLOOD UREA NITROGEN 11 MG/DL (9-23); CALCIUM LEVEL 8.3 MG/DL (8.5-10.1); CARBON DIOXIDE LEVEL 27 MMOL/L (20-31); CHLORIDE LEVEL 106 MMOL/L (98-107); CHOLESTEROL LEVEL 188 MG/DL (<200); CHOLESTEROL RISK RATIO 3.92 (<5); CREATININE FOR GFR 0.66 MG/DL (0.70-1.30); GLOMERULAR FILTRATION RATE > 60.0 (>60); GLUCOSE, FASTING 88 MG/DL (60-100); HDL CHOLESTEROL 47.9 MG/DL (>40); LDL CHOLESTEROL 95.1 MG/DL (<100); NON-HDL-C 140.1 MG/DL; POTASSIUM SERUM 4.1 MMOL/L (3.5-5.1); SODIUM LEVEL 138 MMOL/L (136-145); TOTAL PROTEIN 6.6 G/DL (5.7-8.2); TRIGLYCERIDES LEVEL 225 MG/DL (<150)
[2022-11-04 12:36] LABS: THYROID STIMULATING HORMONE 2.591 uIU/ML (0.55-4.78)
[2022-11-05 23:07] LABS: ANA (HEP2) Negative (.)
== END ==
LOC: M LAB REF 11:31
PROVIDERS: ATTEND Nurse Practitioner Family
DX: M25.50 Pain in unspecified joint (principal); Z13.228 Encounter for screening for other metabolic disorders